=== PATIENT | male | born 1955 | race Caucasian/White ===

== ENCOUNTER 2017-12-27 19:05 | Inpatient (IN) | payer BC ==
--- OUTSIDE RECORDS SUMMARY | 2017-12-27 19:07 | XMS REPORT | Clinical Summary ---
:1955 Author Organization [facility] Address [address] [place] [id number] Care Team Providers Name Role Phone Jazz Brice MD Primary Care Provider Allergies No Known Allergies Current Medications No known medications Active Problems No known active problems Family History Medical History Relation Name Comments Diabetes Father Coronary artery disease Maternal Grandfather age 75+ Breast cancer Mother Relation Name Status Comments Father Maternal Grandfather Mother Social History Tobacco Use Types Packs/Day Years Used Date Never Smoker Alcohol Use Drinks/Week oz/Week Comments Yes Sex Assigned at Date Recorded Not on file Last Filed Vital Signs Not on file Plan of Treatment Health Maintenance Due Date Last Done Comments COLON CANCER SCREENING 11/04/2007 SHINGRIX VACCINE (#1) 11/04/2007 INFLUENZA VACCINE 10/11/2017 ZOSTER VACCINE 2017 Results Not on fileafter 12/26/2016 Insurance Payer Benefit Plan / Group Subscriber ID Type Phone Address BCBS BCBS CHOICE PPO/FEDERAL EMPL PPO xxxxxxxxxxxx PPO Home: Star MURILLO [phone] [address]
[2017-12-27 20:04] LABS: Absolute Lymphocytes (CBC) 1.6 K/uL (0.7-4.9); Absolute Monocytes 0.7 K/uL (0.1-1.3); Absolute Neutrophil 7.8 K/uL (1.8-8.0); Basophils % 0.6 % (0-1.3); Eosinophils % 2.2 % (0-4.4); Hematocrit 41.5 % (39.6-49.0); Lymphocytes % 15.2 % (15.3-44.8); MCH 32.2 pg (27.0-35.0); MCV 93.4 fL (80-100); MPV 7.9 fL (7.6-11.3); Monocytes % 6.5 % (3.3-12.3); Protime INR 0.98; RBC Red Blood Cell Count 4.44 M/uL (4.33-5.43)
[2017-12-27] MEDS ORDERED: FENTANYL CITR 100 MCG/2 ML ONE (20:04)
[2017-12-27] MEDS ORDERED: NA CHLORIDE 0.9% 1,000 ML ONE (20:04)
[2017-12-27] MEDS ORDERED: FAMOTIDINE 20 MG/2 ML VIAL IV ONE (20:04)
[2017-12-27] MEDS ORDERED: ONDANSETRON 4 MG/2 ML VIAL ONE ×2 (20:04→21:41)
[2017-12-27] MEDS ORDERED: METRONIDAZOLE 500mg IVPB 500 MG/100 ML BAG IV ONE (20:05)
[2017-12-27] MEDS ORDERED: CIPROFLOXACIN 400mg IV 400 MG/200 ML BAG IV ONE (20:05)
--- NOTE | 2017-12-27 20:17 | RAD REPORT ---
EXAM DESCRIPTION: RAD - Chest Single View - 12/27/2017 8:11 pm CLINICAL HISTORY: Abdominal pain, abdominal distention COMPARISON: None. TECHNIQUE: AP portable chest image was obtained 2000 hours . FINDINGS: Lungs are clear. Heart and vasculature are normal. No measurable pleural effusion and no p neumothorax. Fullness along the right side of the mediastinum is believed to be normal vasculature. N o comparison is available. No acute bone finding. No acute aortic findings suspected. IMPRESSION: No acute cardiopulmonary process. Fullness along the right-side mediastinum is believed to be vascular summation artifact rather than m ass/adenopathy.
[2017-12-27 20:21] LABS: ALT/SGPT 21 U/L (12-78); AST/SGOT 12 U/L (15-37); Albumin 3.8 g/dL (3.4-5.0); Alkaline Phosphatase 65 U/L (45-117); BUN Blood Urea Nitrogen 24 mg/dL (7-18); Bicarbonate 27 mmol/L (21-32); Bilirubin Direct 0.2 mg/dL (0-0.2); Bilirubin Total 0.5 mg/dL (0.2-1.0); Glucose Level 100 mg/dL (74-106); Magnesium 2.6 mg/dL (1.8-2.4); NT PRO-BNP 29 pg/mL (<125); Potassium 3.8 mmol/L (3.5-5.1); Protein, Total 8.2 g/dL (6.4-8.2); Sodium Level 140 mmol/L (136-145); Troponin (Emerg Dept Use Only) < 0.02 ng/mL (0.0-0.045)
--- NOTE | 2017-12-27 22:08 | RAD REPORT ---
EXAM DESCRIPTION: CT - Abdomen Pelvis W Contrast - 12/27/2017 9:55 pm CLINICAL HISTORY: Abdominal pain COMPARISON: None. TECHNIQUE: Biphasic, helical CT imaging of the abdomen and pelvis was performed following 100 ml non -ionic IV contrast. Oral contrast was given. All CT scans are performed using dose optimization technique as appropriate and may include automated exposure control or mA/KV adjustment according to patient size. FINDINGS: No suspicious findings in the lung bases. The liver, spleen, and pancreas show no suspicious findings. Gallbladder and biliary tree are also wi thout suspicious finding. Symmetric renal function is seen with no hydronephrosis or suspicious renal mass. No pyelonephritis o r acute renal parenchymal process. Partially filled urinary bladder shows no suspicious finding. No gastric dilatation or wall thickening. No acute small bowel finding. An 8 millimeter appendicolith is present in the midportion of the appendix. Appendix is 10 mm in diameter. There is a trace amount of stranding in the periappendiceal fat. A few adjacent mesenteric lymph nodes are present. No mass in the appendix. No acute cecum finding noted. Left-sided colon is mostly decompressed. Rare divertic fiona seen. Prostate gland and seminal vesicles within normal range. No free air, free fluid or other site of inflammatory stranding peer and no mass or bulky lymphaden opathy. Small left fat filled inguinal hernias present. Fat extends into the origin of the right ingu inal canal. Patient has a 15 millimeter fat only umbilical hernia. No adrenal abnormality. No suspicious bony findings. IMPRESSION: Early acute appendicitis findings. There is trace stranding in the periappendiceal fat w ith an 8 millimeter appendicolith present. No abscess, free air or surgically emergent finding. Additional nonacute findings detailed in the body of the report.
--- NOTE | 2017-12-27 22:22 | EDPHYS ---
Physician Documentation [facility] Name: Sammy Bennett Jr Age: 62 yrs Sex: Male : 1955 Arrival Date: 12/27/2017 Time: 19:09 Bed 6 Private MD: JUAN MANUEL Physician Luke Rob HPI: 12/27 19:50 This 62 yrs old Male presents to ER via Ambulatory with complaints of yaritza Abdominal Pain. 19:50 The patient presents with abdominal pain in the lower abdomen, abdominal distention in yaritza the upper abdomen, in the lower abdomen. Onset: The symptoms/episode began/occurred 1 day(s) ago. The symptoms do not radiate. Associated signs and symptoms: Pertinent positives:. Modifying factors: The symptoms are alleviated by nothing, the symptoms are aggravated by nothing. Severity of pain: At its worst the pain was mild moderate in the emergency department the pain is unchanged. The patient has not experienced similar symptoms in the past. Historical: - Allergies: 19:23 No Known Allergies; fc - Home Meds: 19:23 multivitamin oral tab daily [Active]; Magnesium Oxide Oral daily [Active]; Fish Oil fc oral oral daily [Active]; - PMHx: 19:23 intestinal kink; Arthritis; fc - PSHx: 19:23 shoulder surg; fc - Immunization history:: Last tetanus immunization: unknown, Flu vaccine is not up to date. - Social history:: Smoking status: Patient/guardian denies using tobacco, Patient uses alcohol, occasionally. - Ebola Screening: : Patient negative for fever greater than or equal to 101.5 degrees Fahrenheit, and additional compatible Ebola Virus Disease symptoms Patient denies exposure to infectious person Patient denies travel to an Ebola-affected area in the 21 days before illness onset. - Family history:: not pertinent. ROS: 19:50 Constitutional: Negative for fever, chills, and weight loss, Eyes: Negative for injury, yaritza pain, redness, and discharge, ENT: Negative for injury, pain, and discharge, Neck: Negative for injury, pain, and swelling, Cardiovascular: Negative for chest pain, palpitations, and edema, Respiratory: Negative for shortness of breath, cough, wheezing, and pleuritic chest pain, Back: Negative for injury and pain, : Negative for injury, bleeding, discharge, and swelling, MS/Extremity: Negative for injury and deformity, Skin: Negative for injury, rash, and discoloration, Neuro: Negative for headache, weakness, numbness, tingling, and seizure, Psych: Negative for depression, anxiety, suicide ideation, homicidal ideation, and hallucinations, Allergy/Immunology: Negative for hives, rash, and allergies, Endocrine: Negative for neck swelling, polydipsia, polyuria, polyphagia, and marked weight changes, Hematologic/Lymphatic: Negative for swollen nodes, abnormal bleeding, and unusual bruising. 19:50 Abdomen/GI: Positive for abdominal pain, nausea and vomiting, of the right upper quadrant, left upper quadrant, right lower quadrant and left lower quadrant. Exam: 19:50 Constitutional: This is a well developed, well nourished patient who is awake, alert, yaritza and in no acute distress. Head/Face: Normocephalic, atraumatic. Eyes: Pupils equal round and reactive to light, extra-ocular motions intact. Lids and lashes normal. Conjunctiva and sclera are non-icteric and not injected. Cornea within normal limits. Periorbital areas with no swelling, redness, or edema. ENT: Nares patent. No nasal discharge, no septal abnormalities noted. Tympanic membranes are normal and external auditory canals are clear. Oropharynx with no redness, swelling, or masses, exudates, or evidence of obstruction, uvula midline. Mucous membranes moist. Neck: Trachea midline, no thyromegaly or masses palpated, and no cervical lymphadenopathy. Supple, full range of motion without nuchal rigidity, or vertebral point tenderness. No Meningismus. Chest/axilla: Normal chest wall appearance and motion. Nontender with no deformity. No lesions are appreciated. Cardiovascular: Regular rate and rhythm with a normal S1 and S2. No gallops, murmurs, or rubs. Normal PMI, no JVD. No pulse deficits. Respiratory: Lungs have equal breath sounds bilaterally, clear to auscultation and percussion. No rales, rhonchi or wheezes noted. No increased work of breathing, no retractions or nasal flaring. Abdomen/GI: Soft, non-tender, with normal bowel sounds. No distension or tympany. No guarding or rebound. No evidence of tenderness throughout. Back: No spinal tenderness. No costovertebral tenderness. Full range of motion. Male : Normal genitalia with no discharge or lesions. Skin: Warm, dry with normal turgor. Normal color with no rashes, no lesions, and no evidence of cellulitis. MS/ Extremity: Pulses equal, no cyanosis. Neurovascular intact. Full, normal range of motion. Neuro: Awake and alert, GCS 15, oriented to person, place, time, and situation. Cranial nerves II-XII grossly intact. Motor strength 5/5 in all extremities. Sensory grossly intact. Cerebellar exam normal. Normal gait. Psych: Awake, alert, with orientation to person, place and time. Behavior, mood, and affect are within normal limits. Vital Signs: 19:10 BP 143 / 84; Pulse 76; Resp 18; Temp 97.8(O); Pulse Ox 97% on R/A; Weight 104.33 kg fc (R); Height 6 ft. 4 in. (193.04 cm) (R); Pain 8/10; 20:21 BP 129 / 81; Pulse 76; Resp 18; Pulse Ox 98% on R/A; tl2 21:39 BP 106 / 85; Pulse 82; Resp 20; Pulse Ox 100% on R/A; fc 22:48 BP 120 / 66; Pulse 81; Resp 18; Pulse Ox 97% on R/A; tl2 19:10 Body Mass Index 28.00 (104.33 kg, 193.04 cm) MDM: 19:20 Patient medically screened. [facility] 19:52 Data reviewed: vital signs, nurses notes, lab test result(s), EKG, radiologic studies, [facility] CT scan, plain films. 12/27 19:36 Order name: Basic Metabolic Panel; Complete Time: 21:11 2 12/27 19:36 Order name: CBC with Diff; Complete Time: 21:11 2 12/27 19:36 Order name: LFT's; Complete Time: 21:11 2 12/27 19:36 Order name: Magnesium; Complete Time: 21:11 2 12/27 19:36 Order name: NT PRO-BNP; Complete Time: 21:11 2 12/27 19:36 Order name: PT-INR; Complete Time: 21:11 2 12/27 19:36 Order name: Troponin (emerg Dept Use Only); Complete Time: 21:11 2 12/27 19:36 Order name: XRAY Chest (1 view); Complete Time: 21:11 tl2 12/27 19:49 Order name: Lipase; Complete Time: 21:11 yaritza 12/27 19:49 Order name: CT Abd/Pelvis - W/Contrast; Complete Time: 22:18 yaritza 12/27 22:33 Order name: Basic Metabolic Panel EDMS 12/27 22:33 Order name: Basic Metabolic Panel EDMS 12/27 22:33 Order name: CBC with Automated Diff EDMS 12/27 22:34 Order name: CBC with Automated Diff EDMS 12/27 19:36 Order name: EKG; Complete Time: 19:36 tl2 12/27 19:36 Order name: Cardiac monitoring; Complete Time: 19:51 tl2 12/27 19:36 Order name: EKG - Nurse/Tech; Complete Time: 19:49 tl2 12/27 19:36 Order name: IV Saline Lock; Complete Time: 19:36 tl2 12/27 22:33 Order name: NPO EDMS 12/27 19:36 Order name: Labs collected and sent; Complete Time: 19:36 tl2 12/27 19:36 Order name: O2 Per Protocol; Complete Time: 19:36 tl2 12/27 19:36 Order name: O2 Sat Monitoring; Complete Time: 19:37 tl2 Administered Medications: 20:13 Drug: NS 0.9% 1000 ml Route: IV; Rate: 1 bolus; Site: right antecubital; tl2 20:14 Drug: fentaNYL (PF) 25 mcg Route: IVP; Site: right antecubital; tl2 20:14 Drug: Zofran 4 mg Route: IVP; Site: right antecubital; tl2 20:14 Drug: Pepcid 20 mg Route: IVP; Site: right antecubital; tl2 23:16 Follow up: Response: No adverse reaction bb 21:38 Drug: fentaNYL (PF) 25 mcg Route: IVP; Site: right antecubital; fc 21:38 Drug: Flagyl 500 mg Volume: 100 ml; Route: IVPB; Rate: 200 ml/hr; Infused Over: 30 fc mins; Site: right antecubital; 22:25 Follow up: IV Status: Completed infusion; IV Intake: 100ml bb 21:39 Drug: Zofran 4 mg Route: IVP; Site: right antecubital; fc 23:16 Follow up: Response: No adverse reaction bb 22:47 Drug: Cipro 400 mg Volume: 200 ml; Route: IVPB; Infused Over: 60 mins; Site: right tl2 antecubital; 23:17 Follow up: IV Status: Infusion continued upon admission bb 22:47 Drug: Zofran 4 mg Route: IVP; Site: right antecubital; tl2 23:16 Follow up: Response: No adverse reaction bb 22:47 Drug: morphine 4 mg Route: IVP; Site: right antecubital; tl2 23:16 Follow up: Response: No adverse reaction bb Disposition: 12/27/17 22:21 Hospitalization ordered by Mustapha Gutiérrez for Observation. Preliminary diagnosis are Abdominal tenderness, Acute appendicitis. - Bed requested for Telemetry/MedSurg (observation). - Status is Observation. tl2 - Condition is Stable. - Problem is new. - Symptoms have improved. UTI on Admission? No Signatures: Dispatcher [employer] EDMS Malinda German RN RN mw Anderson, Corey, MD MD cha Chretien, Felicia, RN RN Ana Cevallos RN RN 2 Ashely Dior RN Corrections: (The following items were deleted from the chart) 22:25 22:21 Hospitalization Ordered by Mustapha Gutiérrez MD for Observation. Preliminary diagnosis mw is Abdominal tenderness; Acute appendicitis. Bed requested for Telemetry/MedSurg (observation). Status is Observation. Condition is Stable. Problem is new. Symptoms have improved. UTI on Admission? No. [facility] 23:23 22:25 12/27/2017 22:21 Hospitalization Ordered by Mustapha Gutiérrez MD for Observation. tl2 Preliminary diagnosis is Abdominal tenderness; Acute appendicitis. Bed requested for Telemetry/MedSurg (observation). Status is Observation. Condition is Stable. Problem is new. Symptoms have improved. UTI on Admission? No. mw
--- NOTE | 2017-12-27 22:22 | ER ---
Nurse's Notes [facility] Name: Sammy Bennett Jr Age: 62 yrs Sex: Male : 1955 Arrival Date: 12/27/2017 Time: 19:09 Bed 6 Private MD: Diagnosis: Abdominal tenderness;Acute appendicitis Presentation: 12/27 19:10 Presenting complaint: Patient states: that he is having increasing abd pain. Denies any fc nausea, vomiting or diarrhea. Last BM today. Denies any constipation. Has hx of intestinal kink. Transition of care: patient was not received from another setting of care. Onset of symptoms was December 27, 2017. Risk Assessment: Do you want to hurt yourself or someone else?. Initial Sepsis Screen: Does the patient meet any 2 criteria? No. Patient's initial sepsis screen is negative. Does the patient have a suspected source of infection? No. Patient's initial sepsis screen is negative. Care prior to arrival: None. 19:10 Method Of Arrival: Ambulatory fc 19:10 Acuity: MILVIA 3 fc Triage Assessment: 23:14 General: Behavior is cooperative. bb Historical: - Allergies: 19:23 No Known Allergies; fc - Home Meds: 19:23 multivitamin oral tab daily [Active]; Magnesium Oxide Oral daily [Active]; Fish Oil fc oral oral daily [Active]; - PMHx: 19:23 intestinal kink; Arthritis; fc - PSHx: 19:23 shoulder surg; fc - Immunization history:: Last tetanus immunization: unknown, Flu vaccine is not up to date. - Social history:: Smoking status: Patient/guardian denies using tobacco, Patient uses alcohol, occasionally. - Ebola Screening: : Patient negative for fever greater than or equal to 101.5 degrees Fahrenheit, and additional compatible Ebola Virus Disease symptoms Patient denies exposure to infectious person Patient denies travel to an Ebola-affected area in the 21 days before illness onset. - Family history:: not pertinent. Screenin:21 Abuse screen: Denies threats or abuse. Nutritional screening: No deficits noted. fc Tuberculosis screening: No symptoms or risk factors identified. Fall Risk None identified. Assessment: 19:40 General: Appears in no apparent distress. uncomfortable. Pain: Complains of pain in tl2 abdomen and left lower quadrant and right lower quadrant and left upper quadrant and right upper quadrant Pain does not radiate. Quality of pain is described as sharp, Pain began 4 hours ago. Neuro: Level of Consciousness is awake, alert, obeys commands, Oriented to person, place, time, situation. Cardiovascular: Denies chest pain. Respiratory: Airway is patent Respiratory effort is even, unlabored, Respiratory pattern is regular, symmetrical. GI: Bowel sounds present X 4 quads. Abd is soft Abdomen is tender to palpation in right upper quadrant and right lower quadrant Patient currently denies nausea, vomiting. : No signs and/or symptoms were reported regarding the genitourinary system. Derm: Skin is pink, warm \T\ dry. 20:21 Reassessment: Patient appears in no apparent distress at this time. Patient and/or tl2 family updated on plan of care and expected duration. Pain level reassessed. Patient is alert, oriented x 3, equal unlabored respirations, skin warm/dry/pink. 22:30 Reassessment: Patient appears in no apparent distress at this time. Patient and/or tl2 family updated on plan of care and expected duration. Pain level reassessed. Patient is alert, oriented x 3, equal unlabored respirations, skin warm/dry/pink. Pt continuing to c/o pain and nausea, MD notified, new orders see MAR. 23:21 Reassessment: Patient and/or family updated on plan of care and expected duration. Pain tl2 level reassessed. Patient is alert, oriented x 3, equal unlabored respirations, skin warm/dry/pink. IV patent, intact with fluids infusing, pt transported via stretcher to room 209 accompanied by semiconductor manufacturing technician and family. Vital Signs: 19:10 BP 143 / 84; Pulse 76; Resp 18; Temp 97.8(O); Pulse Ox 97% on R/A; Weight 104.33 kg fc (R); Height 6 ft. 4 in. (193.04 cm) (R); Pain 8/10; 20:21 BP 129 / 81; Pulse 76; Resp 18; Pulse Ox 98% on R/A; tl2 21:39 BP 106 / 85; Pulse 82; Resp 20; Pulse Ox 100% on R/A; fc 22:48 BP 120 / 66; Pulse 81; Resp 18; Pulse Ox 97% on R/A; tl2 19:10 Body Mass Index 28.00 (104.33 kg, 193.04 cm) ED Course: 19:09 Patient arrived in ED. ag3 19:10 Arm band placed on Patient placed in an exam room, on a stretcher. fc 19:20 Luke Rob MD is Attending Physician. yaritza 19:21 Triage completed. fc 19:21 Patient has correct armband on for positive identification. Bed in low position. Call fc light in reach. Pulse ox on. NIBP on. 19:21 No provider procedures requiring assistance completed. fc 19:27 Ana Cevallos RN is Primary Nurse. tl2 19:40 Inserted saline lock: 20 gauge in right antecubital area, using aseptic technique. tl2 Blood collected. 20:11 XRAY Chest (1 view) In Process Unspecified. EDMS 21:55 CT Abd/Pelvis - W/Contrast In Process Unspecified. EDMS 22:20 Mustapha Gutiérrez MD is Hospitalizing Provider. yaritza 23:15 Patient admitted, IV remains in place. bb Administered Medications: 20:13 Drug: NS 0.9% 1000 ml Route: IV; Rate: 1 bolus; Site: right antecubital; tl2 20:14 Drug: fentaNYL (PF) 25 mcg Route: IVP; Site: right antecubital; tl2 20:14 Drug: Zofran 4 mg Route: IVP; Site: right antecubital; tl2 20:14 Drug: Pepcid 20 mg Route: IVP; Site: right antecubital; tl2 23:16 Follow up: Response: No adverse reaction bb 21:38 Drug: fentaNYL (PF) 25 mcg Route: IVP; Site: right antecubital; fc 21:38 Drug: Flagyl 500 mg Volume: 100 ml; Route: IVPB; Rate: 200 ml/hr; Infused Over: 30 fc mins; Site: right antecubital; 22:25 Follow up: IV Status: Completed infusion; IV Intake: 100ml bb 21:39 Drug: Zofran 4 mg Route: IVP; Site: right antecubital; fc 23:16 Follow up: Response: No adverse reaction bb 22:47 Drug: Cipro 400 mg Volume: 200 ml; Route: IVPB; Infused Over: 60 mins; Site: right tl2 antecubital; 23:17 Follow up: IV Status: Infusion continued upon admission bb 22:47 Drug: Zofran 4 mg Route: IVP; Site: right antecubital; tl2 23:16 Follow up: Response: No adverse reaction bb 22:47 Drug: morphine 4 mg Route: IVP; Site: right antecubital; tl2 23:16 Follow up: Response: No adverse reaction bb Intake: 22:25 IV: 100ml; Total: 100ml. bb Outcome: 22:21 Decision to Hospitalize by Provider. yaritza 23:15 Admitted to Tele accompanied by tech, via stretcher, room 209, with chart, Report bb called to Steven MCCORD 23:15 Condition: stable 23:15 Instructed on the need for admit. 23:23 Patient left the ED. tl2 Signatures: Dispatcher [employer] Luke Peterson MD MD cha Chretien, Felicia, RN RN Ashely Sewell RN RN Ana Trejo RN RN tl2 Barbie Silva ag3
[2017-12-27] MEDS ORDERED: ACETAMINOPHEN 500 MG TAB PO PRN (22:31)
[2017-12-27] MEDS ORDERED: ONDANSETRON 4 MG/2 ML VIAL IV PRN (22:31)
[2017-12-27] MEDS ORDERED: PIPER/TAZO/NS 3.375gm 3.375 GM/100 ML BAG ONE (22:49)
[2017-12-28] MEDS: D5 0.45 NS 1,000 ML IV SCH ×4 (00:03→23:00)
[2017-12-28] MEDS: PIPER/TAZO/NS 3.375gm 3.375 GM/100 ML BAG IVPB SCH ×4 (01:11→17:41)
[2017-12-28] MEDS: MORPHINE 4 MG/ML SYR IV PRN ×2 (01:20→05:44)
[2017-12-28 05:47] LABS: Potassium 3.8 mmol/L (3.5-5.1)
[2017-12-28 05:49] LABS: Absolute Monocytes 0.8 K/uL (0.1-1.3); Absolute Neutrophil 8.7 K/uL (1.8-8.0); Basophils % 0.3 % (0-1.3); Eosinophils % 0.1 % (0-4.4); Hematocrit 38.1 % (39.6-49.0); Lymphocytes % 9.2 % (15.3-44.8); MCV 94.2 fL (80-100); MPV 8.2 fL (7.6-11.3); Monocytes % 7.3 % (3.3-12.3); RBC Red Blood Cell Count 4.04 M/uL (4.33-5.43)
[2017-12-28] MEDS ORDERED: PIPER/TAZO/NS 3.375gm 3.375 GM/100 ML BAG IVPB SCH ×2 (06:00)
[2017-12-28] MEDS ORDERED: PIPER/TAZO/NS 3.375gm 3.375 GM/100 ML BAG ONE (06:35)
[2017-12-28] MEDS ORDERED: Ringers Lactate 1,000 ML IV ONE ×2 (08:14→10:55)
[2017-12-28] MEDS ORDERED: FENTANYL CITR 100 MCG/2 ML ONE ×4 (09:06→10:48)
[2017-12-28] MEDS ORDERED: PROPOFOL 200 MG/20 ML VIAL IV ONE ×2 (09:06→10:16)
[2017-12-28] MEDS ORDERED: MIDAZOLAM HCL 2 MG/2 ML INJ ONE ×2 (09:07→10:16)
[2017-12-28] MEDS ORDERED: LIDOCAINE 2% MPF 5 ML VIAL ONE (09:07)
[2017-12-28] MEDS ORDERED: ONDANSETRON 4 MG/2 ML VIAL ONE (09:07)
[2017-12-28] MEDS ORDERED: ROCURONIUM 50 MG/5 ML VIAL IV ONE ×3 (09:08→10:54)
[2017-12-28] MEDS: FENTANYL CITR 100 MCG/2 ML ONE ×2 (09:24→09:30)
[2017-12-28] MEDS ORDERED: LIDOCAINE 1% MPF 5 ML VIAL ONE (10:16)
[2017-12-28] MEDS ORDERED: BUPIVACAINE 0.5% PF 10 ML VIAL ONE (10:27)
[2017-12-28] MEDS ORDERED: ONDANSETRON HCL 40 MG/20 ML VIAL ONE (10:55)
[2017-12-28] MEDS ORDERED: KETOROLAC 30 MG/ML INJ ONE (10:55)
[2017-12-28] MEDS ORDERED: GLYCOPYRROLATE 0.2 MG/ML SYR ONE (10:55)
[2017-12-28] MEDS ORDERED: NEOSTIGMINE 1 MG/ML -5 ML SYRINGE ONE (10:55)
[2017-12-28] MEDS ORDERED: INFLUENZA VACCINE (for 3y+) 0.5 ML DOSE IMVAC ONE (11:00)
[2017-12-28] MEDS: MEPERIDINE HCL 50 MG/ML AMP ONE ×2 (11:39→11:45)
--- NOTE | 2017-12-28 11:40 | P.OP ---
[employer] Teacher: Polly OTRIZ Preoperative diagnosis: Acute appy Postoperative diagnosis: same Primary procedure: Lap Appy Anesthesia: gen Estimated blood loss: min Specimen: appy Findings: as above Complications: None Transferred to: Recovery Room Condition: Good
--- NOTE | 2017-12-28 12:27 | HP ---
Date of Consultation: 12/28/2017 Reason: Abdominal pain. History Of Present Illness: The patient is a 62-year-old gentleman, who comes in with diffuse abdomi nal pain associated with nausea and vomiting, and right lower quadrant localization. No previous his tory of this. No sore throat, runny nose, cough, headaches, or dizziness. No chest pain. Occasiona l chills. No fevers. No diarrhea or constipation. No blood in his stool. No dysuria or hematuria. Review of Systems: Otherwise unremarkable. Past Medical History: Arthritis. Past Surgical History: Shoulder surgery. Allergies: NO ALLERGIES. Social History: He does not smoke. Drinks occasionally. Family History: Noncontributory. Physical Examination: Vital Signs: Stable. Afebrile. General: Awake, alert, and oriented x3. Head and Neck: Cranial nerves 2 through 12 are grossly within normal limits. No neck masses. No JV D. Throat clear. Neck is supple. Chest: Clear. Heart: S1, S2. Abdomen: Soft, nondistended. Positive bowel sounds. Positive right lower quadrant tenderness with rebound. No rigidity or guarding. Extremity: Adequately perfused. Nontender. Neuro: Nonfocal. Laboratory Data: White count is normal with a left shift. CT of the abdomen and pelvis is consisten t with acute appendicitis, early, with an appendicolith. Assessment: Acute appendicitis. Plan: Admit n.p.o., IV fluid, IV antibiotic. To the OR for laparoscopic appendectomy, possible open . The patient understands the risks, benefits, and alternatives and agrees to procedure. BHARAT/VARSHA Voice ID: [id number] Report ID: [id number]
[2017-12-28] MEDS ORDERED: SUCCINYLCHOLINE 20 MG/ML (10 ML) IV ONE (12:44)
[2017-12-28] MEDS: HYDROCODONE/APAP 7.5/325 MG TAB PO PRN ×2 (15:36→20:16)
[2017-12-28] MEDS: ACETAMINOPHEN 325 MG TABLET PO PRN (16:38)
[2017-12-29] MEDS: PIPER/TAZO/NS 3.375gm 3.375 GM/100 ML BAG IVPB SCH ×3 (00:57→16:19)
--- NOTE | 2017-12-29 01:34 | OP ---
Date of Procedure: 12/28/2017 Surgeon: Mustapha Gutiérrez MD Data Assistant: DIANA Dela Cruz. Preoperative Diagnoses: Acute appendicitis, umbilical hernia. Postoperative Diagnoses: Acute appendicitis, umbilical hernia. Procedure: Repair of umbilical hernia and laparoscopic appendectomy. Estimated Blood Loss: Minimal. Specimen: Appendix and hernia sac. Finding: As above. Anesthesia: General. Complications: None. Disposition: The patient tolerated the procedure in stable condition and taken to Recovery in good g eneral condition. Procedure In Detail: The patient was brought to the OR and placed in the supine position. General a nesthesia was begun. The patient was prepped and draped in usual sterile fashion. Marcaine 0.5% was infiltrated locally around the hernia at the umbilicus and then a 3 cm incision was made over the he rnia and subcutaneous tissue divided. Hernia sac and contents identified, excised, and sent to Patho logy as specimen. Approximately 1.5 cm defect remained with good fascial edges. A #1 Vicryl stay mackay ture was placed and then a 12 mm trocar was placed in the peritoneal cavity under direct vision. Pne umoperitoneum was established. Two 5 mm trocars were placed, one in the suprapubic region, one in th e left lower quadrant. Laparoscopy revealed acute suppurative appendicitis with chronic inflammation and was attached to the lateral pelvic wall as well as the cecum and blunt dissection was used to mo bilize it and then the base of the appendix and mesoappendix were clearly identified. Endo-MARV stapl ing device was used to divide both structures. Then, the appendix was retrieved through the umbilicu s via an EndoCatch bag. Right lower quadrant was irrigated. Effluent was clear. No evidence of ble eding or bowel injury appreciated. No other evidence of disease identified. Subsequently, all troca rs were removed under direct vision. Stay sutures were used to close the hernia defect. Subcutaneou s wounds were irrigated. Bleeding controlled with cautery. A 3-0 chromic used to approximate the mackay bcutaneous tissue and close skin. Sterile dressing was applied. The patient was awakened and taken to Recovery in good general condition. /MODL Voice ID: [id number] Report ID: [id number]
[2017-12-29] MEDS: HYDROCODONE/APAP 7.5/325 MG TAB PO PRN ×3 (04:34→15:12)
--- NOTE | 2017-12-29 05:49 | DS ---
Date of Discharge: 12/28/2017 Admitting Diagnoses: Acute appendicitis and umbilical hernia. Discharge Diagnoses: Acute appendicitis and umbilical hernia. Procedure Performed: Laparoscopic appendectomy and repair of umbilical hernia. Hospital Course: The patient is a 62-year-old gentleman who underwent the aforementioned procedure. Postoperatively, he is tolerating diet ambulating, pain controlled on p.o. pain medication, afebrile ; therefore, the patient will be discharged to home. Disposition: Home. Condition: Stable. Discharge Instructions: Resume home medications and diet. Activity as tolerated. No heavy lifting. Remove outer dressing in 2 days. Shower. Keep wound clean and dry. Follow up in my office in [address] [place], call for appointment. Tylenol No. 3, one tablet, p.o. q.4 h. p.r.n. for pain; Cipro 500 mg p.o. q.12 h.; Flagyl 500 mg p.o. q.6 h. /MODL Voice ID: [id number] Report ID: [id number]
[2017-12-29] MEDS: ACETAMINOPHEN 325 MG TABLET PO PRN (05:56)
--- NOTE | 2017-12-29 06:55 | EKG ---
Test Date: 2017-12-27 Test Time: 19:41:08 Family Day Care Provider: DAVID MEASUREMENT RESULTS: Intervals: Rate: 75 [place]: 174 QRSD: 88 QT: 400 QTc: 446 Am[place]: P: 58 [place]: 174 QRS: 25 T: 44 INTERPRETIVE STATEMENTS: Normal sinus rhythm Normal ECG No previous ECG available for comparison Electronically Signed On 12-29-17 06:49:43 CDT by Trev Pryor
[2017-12-29] MEDS ORDERED: INFLUENZA VACCINE (for 3y+) 0.5 ML DOSE IMVAC ONE (07:00)
[2017-12-29] MEDS: D5 0.45 NS 1,000 ML IV SCH ×3 (07:00→23:37)
[2017-12-29 09:16] LABS: Absolute Lymphocytes (CBC) 0.9 K/uL (0.7-4.9); Absolute Monocytes 0.3 K/uL (0.1-1.3); Absolute Neutrophil 10.2 K/uL (1.8-8.0); Basophils % 0.3 % (0-1.3); Eosinophils % 0.8 % (0-4.4); Hematocrit 36.1 % (39.6-49.0); MCH 31.8 pg (27.0-35.0); MPV 7.9 fL (7.6-11.3); RBC Red Blood Cell Count 3.88 M/uL (4.33-5.43)
[2017-12-29 09:43] LABS: Blood Morphology Comment NOT SEEN (NOT SEEN); Platelet Estimate ADEQ; Urine White Blood Cell Casts OK
--- NOTE | 2017-12-29 15:52 | PN ---
Date of Progress Note: 12/29/2017 Subjective: The patient was discharged yesterday, but right before discharge he spiked a temperature , I kept him in for IV antibiotics. So, this would be in addition to my discharge summary, which I w ill do an addendum when patient is discharged for real this time. Today, he is feeling not as good a s yesterday after surgery. He feels bloated. No nausea or vomiting. Tolerating his liquids and the pain is much better than was before surgery. Objective: Vital Signs: Temperature currently is 99.1, otherwise his vital signs are stable. His w harjeet count is slightly elevated at 11.6, slight left shift of 87.9. Abdomen: Soft, slightly distended with slightly hypoactive bowel sounds. No peritonitis. Dressing is clean, dry, intact. Assessment: Status post laparoscopic appendectomy, likely mild ileus following removal of the infect ed appendix. Recommendation: Would be to continue patient on IV antibiotics. Encourage ambulation and incentive spirometry. When his ileus is better clinically, than we can let him go home on oral antibiotics. /MODL Voice ID: [id number] Report ID: [id number]
[2017-12-29] MEDS: METRONIDAZOLE 500mg IVPB 500 MG/100 ML BAG IV SCH ×2 (17:53→23:36)
[2017-12-29] MEDS: ONDANSETRON 4 MG/2 ML VIAL IV PRN ×2 (18:27→23:35)
[2017-12-29] MEDS: PROMETHAZINE 25 MG/ML VIAL IV PRN (20:22)
[2017-12-30] MEDS: PIPER/TAZO/NS 3.375gm 3.375 GM/100 ML BAG IVPB SCH ×3 (01:14→17:13)
[2017-12-30] MEDS: PROMETHAZINE 25 MG/ML VIAL IV PRN (02:00)
[2017-12-30 06:25] LABS: Absolute Lymphocytes (CBC) 0.4 K/uL (0.7-4.9); Absolute Monocytes 0.4 K/uL (0.1-1.3); Absolute Neutrophil 11.4 K/uL (1.8-8.0); Basophils % 0.2 % (0-1.3); Eosinophils % 0.1 % (0-4.4); MCH 32.2 pg (27.0-35.0); MCV 92.8 fL (80-100); MPV 7.8 fL (7.6-11.3); Monocytes % 3.6 % (3.3-12.3); RBC Red Blood Cell Count 3.98 M/uL (4.33-5.43)
[2017-12-30 06:40] LABS: Magnesium 2.4 mg/dL (1.8-2.4); Phosphorus 1.7 mg/dL (2.5-4.9); Potassium 3.8 mmol/L (3.5-5.1)
[2017-12-30] MEDS: METRONIDAZOLE 500mg IVPB 500 MG/100 ML BAG IV SCH ×3 (06:44→17:13)
[2017-12-30] MEDS: D5 0.45 NS 1,000 ML IV SCH ×4 (07:00→22:21)
[2017-12-30] MEDS ORDERED: LIDOCAINE JELLY 2%- 5 ML TUBE TOP ONE (07:46)
--- NOTE | 2017-12-30 08:28 | RAD REPORT ---
EXAM DESCRIPTION: RAD - Abdomen 1 View (KUB) - 12/30/2017 6:38 am CLINICAL HISTORY: Abdomen pain. FINDINGS: Most of small bowel is moderately dilated. Contrast is present within decompressed colon. These findings most likely represent an adynamic ileus. Given the recent surgery and obstruction is c onsidered less likely. Followup abdominal plain film series is rectum
[2017-12-30] MEDS: PHENOL 1.4% ORAL SPRAY 180ML MM PRN ×2 (08:38→23:17)
[2017-12-30] MEDS: ONDANSETRON 4 MG/2 ML VIAL IV PRN ×3 (08:40→19:22)
[2017-12-30] MEDS: HYDROMORPHONE HCL 1 MG/ML INJ IV PRN ×2 (08:40→13:53)
--- NOTE | 2017-12-30 09:54 | RAD REPORT ---
EXAM DESCRIPTION: RAD - Chest Single View - 12/30/2017 9:47 am CLINICAL HISTORY: Device placement nasogastric tube placement IMPRESSION: The tip of a nasogastric tube lies within the junction of the gastric fundus and body
--- NOTE | 2017-12-30 11:37 | PN ---
Date of Progress Note: 12/30/2017 Subjective: The patient is complaining that he is not feeling well. He still feels distended. He h as had nausea all night. Has had bowel movement this morning with some gas as well. X-ray shows robi namic ileus in the small bowel. Colon is not involved. Abdomen is distended. Hypoactive bowel soun ds. Diffuse tenderness but no peritonitis. The upper abdomen appears to be less distended today edward n yesterday. His white count is slightly elevated with a left shift. The electrolytes were checked and they have been corrected as per protocol. Assessment: Status post laparoscopic appendectomy with ileus. Recommendations: We will go and place an NG tube and n.p.o. IV fluid, IV antibiotics, encouraged to ambulate. Incentive spirometry. We will check another x-ray tomorrow. The patient should improve w ith bowel rest. /MODL Voice ID: [id number] Report ID: [id number]
[2017-12-30] MEDS ORDERED: DIPHENHYDRAMINE 50 MG/ML VIAL IV PRN (18:26)
[2017-12-30] MEDS ORDERED: POTASSIUM PHOS 10 MM in NA CHLORIDE 0.9% 250 ML IV ONE (18:43)
--- NOTE | 2017-12-30 18:48 | P.HP ---
Certification for Inpatient Patient admitted to: Inpatient With expected LOS: >2 Midnights Practitioner: I am a practitioner with admitting privileges, knowledge of patient current condition, hospital course, and medical plan of care. Services: Services provided to patient in accordance with Admission requirements found in Title 42 Section 412.3 of the Code of Federal Regulations Patient History Date of Service: 12/30/17 Reason for admission: APPENDICITIS History of Present Illness: MR. WATKINS HAS BEEN IN THE HOSPITAL FOR APPENDICITIS. DR VAZ WAS TO TAKE CARE OF DISCHARGE BUT HE DEVELOPED ILEUS. FAMILY SOUGHT ME AT MY VISIT I AM HIS PCP. HE HAS DIZZINESS AND NAUSEA IN ADDITION TO ILEUS. Allergies No Known Allergies Allergy (Verified 12/27/17 23:42) Home Medications: NK [No Home Meds] 12/27/17 - Past Medical/Surgical History Has patient received pneumonia vaccine in the past: No Diabetic: No -: Shoulder Sx - Family History Father -: Diabetes - Social History Smoking Status: Never smoker Alcohol use: Yes CD- Drugs: No Caffeine use: Yes Place of Residence: Home Review of Systems 10-point ROS is otherwise unremarkable General: Weakness Gastrointestinal: Nausea, Distention Physical Examination - Vital Signs Temperature: 98.7 F Blood Pressure: 121/72 Pulse: 79 Respirations: 18 Pulse Ox (%): 97 - Physical Exam General: Alert, Oriented x3, Mild distress HEENT: Atraumatic, PERRLA, Mucous membr. moist/pink, EOMI, Sclerae nonicteric Neck: Supple, 2+ carotid pulse no bruit, No LAD, Without JVD or thyroid abnormality Respiratory: Clear to auscultation bilaterally, Normal air movement Cardiovascular: Regular rate/rhythm, Normal S1 S2 Gastrointestinal: Hypoactive Musculoskeletal: No tenderness Integumentary: No rashes Neurological: Normal gait, Normal speech, Other Lymphatics: No axilla or inguinal lymphadenopathy - Studies Laboratory Data (last 24 hrs) 12/30/17 06:04: Sodium 133 L, Potassium 3.8, BUN 13, Creatinine 1.10, Glucose 152 H, Phosphorus 1.7 L, Magnesium 2.4 12/30/17 06:04: WBC 12.3 H, Hgb 12.8 L, Hct 37.0 L, Plt Count 249 Assessment and Plan - Problems (Diagnosis) (1) Postoperative ileus Current Visit: Yes Status: Acute Plan: DR. VAZ ON CASE NGT AND LIS. (2) Vertigo Current Visit: Yes Status: Acute Plan: IV BENADRYL 25 MG. MAY HELP THIS SS CURRENTLY WITH NGT HE CAN'T TAKE ANTIVERT. SOMETIMES MEDS WILL GIVE THIS SE. (3) Acute appendicitis Onset Date: 12/28/17 Current Visit: Yes Status: Acute Plan: SP SURGERY. STABLE. - Advance Directives Does patient have a Living Will: No Does patient have a Durable POA for Healthcare: No
[2017-12-30] MEDS: DIPHENHYDRAMINE 12.5MG/5ML LIQ FT PRN (19:24)
[2017-12-31] MEDS: DIPHENHYDRAMINE 12.5MG/5ML LIQ FT PRN (00:57)
[2017-12-31] MEDS: METRONIDAZOLE 500mg IVPB 500 MG/100 ML BAG IV SCH ×5 (00:59→23:43)
[2017-12-31] MEDS: PIPER/TAZO/NS 3.375gm 3.375 GM/100 ML BAG IVPB SCH ×3 (01:02→17:10)
[2017-12-31] MEDS: ONDANSETRON 4 MG/2 ML VIAL IV PRN ×3 (01:02→22:46)
[2017-12-31] MEDS: PHENOL 1.4% ORAL SPRAY 180ML MM PRN ×4 (04:04→22:42)
[2017-12-31] MEDS: D5 0.45 NS 1,000 ML IV SCH ×3 (05:10→17:45)
[2017-12-31 07:12] LABS: Absolute Lymphocytes (CBC) 0.7 K/uL (0.7-4.9); Absolute Monocytes 0.7 K/uL (0.1-1.3); Absolute Neutrophil 9.1 K/uL (1.8-8.0); Basophils % 0.2 % (0-1.3); Eosinophils % 1.2 % (0-4.4); Hematocrit 36.8 % (39.6-49.0); Lymphocytes % 6.5 % (15.3-44.8); MCH 32.1 pg (27.0-35.0); MCV 92.7 fL (80-100); MPV 7.6 fL (7.6-11.3); Monocytes % 6.5 % (3.3-12.3); RBC Red Blood Cell Count 3.97 M/uL (4.33-5.43)
[2017-12-31 07:33] LABS: Magnesium 2.4 mg/dL (1.8-2.4); Phosphorus 1.6 mg/dL (2.5-4.9); Potassium 3.3 mmol/L (3.5-5.1)
[2017-12-31] MEDS ORDERED: POTASSIUM PHOS IN 0.9 % NACL 15 MMOL/250 ML BAG IV ONE (08:04)
[2017-12-31] MEDS: DIPHENHYDRAMINE 12.5MG/5ML LIQ ONE ×2 (08:57→09:25)
[2017-12-31] MEDS: PROMETHAZINE 25 MG/ML VIAL IV PRN ×3 (09:44→19:02)
[2017-12-31] MEDS ORDERED: KCL 20 MEQ/100 mL IVPB 20 MEQ/100 ML BAG IV SCH (10:00)
--- NOTE | 2017-12-31 10:01 | RAD REPORT ---
EXAM DESCRIPTION: RAD - Abdomen W Erect - 12/31/2017 9:13 am CLINICAL HISTORY: Abdominal pain, ileus versus obstruction COMPARISON: KUB December 30, CT imaging December 27 TECHNIQUE: Supine and upright views of the abdomen were obtained. FINDINGS: NG tube has been placed since prior imaging. Stomach has decompressed. Numerous dilated sm all bowel loops are still present. There has been no significant improvement in the small bowel patte rn. No free air or pneumatosis. No colon dilatation. The oral contrast seen in the colon on the Octob er 20 study has cleared indicating bowel activity. No extravasation of contrast. IMPRESSION: Multiple dilated small bowel loops are present not substantially different from the prio r study. Oral contrast seen in the colon on the December 30 study has cleared. NG tube is in place. Stomach has decompressed from prior imaging.
[2017-12-31] MEDS: HYDROMORPHONE HCL 1 MG/ML INJ IV PRN ×3 (12:53→22:46)
--- NOTE | 2017-12-31 14:51 | PN ---
Date of Progress Note: 12/31/2017 Subjective: The patient reports several bouts of diarrhea last night. C diff cultures are pending. He is passing gas. No nausea or vomiting. He did have about greater than 200 out of his NG tube. His abdominal x-ray is pending at this time. Laboratory Data: Shows a white count 10.6, and left shift is improving. Chemistry reviewed and elec trolyte protocol is in progress. Objective: Abdomen: Less distended. There is more bowel sound today. There is no peritonitis. Th ere is minimal incisional tenderness. Assessment: Status post laparoscopic appendectomy with prolonged ileus. Recommendations: We will check the x-ray, but at this time, I think another day with NG tube, decomp ression, and bowel rest would do the patient good. Continue IV antibiotics, IV fluids. Appreciate Margaret Clements's input. We will follow his x-ray and correct his electrolytes as needed. BHARAT/VARSHA Voice ID: [id number] Report ID: [id number]
[2017-12-31] MEDS ORDERED: NA CHLORIDE 0.9% 250 ML ONE (15:50)
[2017-12-31] MEDS ORDERED: ZOLPIDEM TARTRATE 10 MG TABLET PO PRN (17:52)
--- NOTE | 2017-12-31 21:04 | P.PN ---
Subjective Date of Service: 12/31/17 Chief Complaint: ILEUS Subjective: Improving (HE HASD BM TODAY A FEW TIMES.) Review of Systems 10-point ROS is otherwise unremarkable General: Weakness, Malaise Gastrointestinal: Diarrhea, Distention Physical Examination - Vital Signs Temperature: 98.3 F Blood Pressure: 147/76 Pulse: 67 Respirations: 18 Pulse Ox (%): 91 - Physical Exam General: Alert, Mild distress (NG SUCTION) HEENT: Atraumatic, PERRLA, EOMI Neck: Supple, JVD not distended Respiratory: Clear to auscultation bilaterally, Normal air movement Cardiovascular: Regular rate/rhythm, Normal S1 S2 Gastrointestinal: Normal bowel sounds, No tenderness Musculoskeletal: No tenderness Integumentary: No rashes Neurological: Normal speech, Normal tone, Normal affect Lymphatics: No axilla or inguinal lymphadenopathy - Studies Medications List Reviewed: Yes Assessment And Plan - Current Problems (Diagnosis) (1) Postoperative ileus Current Visit: Yes Status: Acute Plan: DR. VAZ ON CASE NGT AND LIS. IMPROVED HOPFEULLY DIET SOON. (2) Vertigo Current Visit: Yes Status: Acute Plan: IV BENADRYL 25 MG. MAY HELP THIS SS CURRENTLY WITH NGT HE CAN'T TAKE ANTIVERT. SOMETIMES MEDS WILL GIVE THIS SE. (3) Acute appendicitis Onset Date: 12/28/17 Current Visit: Yes Status: Acute Plan: SP SURGERY. STABLE.
[2018-01-01] MEDS: PIPER/TAZO/NS 3.375gm 3.375 GM/100 ML BAG IVPB SCH ×3 (00:37→17:04)
[2018-01-01] MEDS: PROMETHAZINE 25 MG/ML VIAL IV PRN ×4 (03:06→21:51)
[2018-01-01] MEDS: HYDROMORPHONE HCL 1 MG/ML INJ IV PRN ×4 (03:07→21:51)
[2018-01-01] MEDS: PHENOL 1.4% ORAL SPRAY 180ML MM PRN ×4 (03:17→21:50)
[2018-01-01 05:23] LABS: Absolute Lymphocytes (CBC) 0.5 K/uL (0.7-4.9); Absolute Monocytes 0.9 K/uL (0.1-1.3); Absolute Neutrophil 8.5 K/uL (1.8-8.0); Basophils % 0.3 % (0-1.3); Eosinophils % 1.8 % (0-4.4); Hematocrit 36.2 % (39.6-49.0); Lymphocytes % 5.2 % (15.3-44.8); MCH 32.8 pg (27.0-35.0); MCV 92.3 fL (80-100); MPV 7.8 fL (7.6-11.3); Monocytes % 8.6 % (3.3-12.3); RBC Red Blood Cell Count 3.92 M/uL (4.33-5.43)
[2018-01-01 05:42] LABS: Magnesium 2.3 mg/dL (1.8-2.4); Phosphorus 1.8 mg/dL (2.5-4.9); Potassium 3.2 mmol/L (3.5-5.1)
[2018-01-01] MEDS: METRONIDAZOLE 500mg IVPB 500 MG/100 ML BAG IV SCH ×3 (05:51→17:01)
[2018-01-01] MEDS: D5 0.45 NS 1,000 ML IV SCH ×3 (05:52→21:49)
[2018-01-01] MEDS ORDERED: KCL 20 MEQ/100 mL IVPB 20 MEQ/100 ML BAG IV SCH (07:00)
--- NOTE | 2018-01-01 07:15 | RAD REPORT ---
EXAM DESCRIPTION: RAD - Abdomen W Erect - 01/01/2018 7:01 am CLINICAL HISTORY: Abdominal pain, small bowel dilatation, ileus versus obstruction COMPARISON: Abdomen exam December 31 TECHNIQUE: Supine and upright views of the abdomen were obtained. FINDINGS: NG tube remains in place. Small amount of air is present in the stomach. Multiple dilated small bowel loops are present with air-fluid levels. No measurable improvement from prior day imaging . Colon remains mostly decompressed. No free air or pneumatosis have developed. Phleboliths are seen in the pelvic floor. No suspicious calcifications. IMPRESSION: Multiple dilated small bowel loops showing no significant change from prior day imaging. No free air or pneumatosis.
[2018-01-01] MEDS: PANTOPRAZOLE 40 MG INJ IVP SCH ×2 (09:35→21:22)
[2018-01-01] MEDS ORDERED: POTASSIUM PHOS IN 0.9 % NACL 15 MMOL/250 ML BAG IV ONE (10:00)
--- NOTE | 2018-01-01 12:35 | P.PN ---
Subjective Date of Service: 01/01/18 Chief Complaint: ILEUS Subjective: Improving HE IS UNCOMFORTABLE WITH NGT. HAS SOME BLOOD IN THE NGT SUCTION. HE HAS HAD BM AND PASSES GAS NOW. Review of Systems 10-point ROS is otherwise unremarkable General: Weakness Gastrointestinal: As per HPI Physical Examination - Vital Signs Temperature: 98.1 F Blood Pressure: 126/88 Pulse: 83 Respirations: 16 Pulse Ox (%): 92 - Physical Exam General: Alert, Mild distress HEENT: Atraumatic, PERRLA, EOMI Neck: Supple, JVD not distended Respiratory: Clear to auscultation bilaterally, Normal air movement Cardiovascular: Regular rate/rhythm, Normal S1 S2 Gastrointestinal: Hypoactive Musculoskeletal: No tenderness Integumentary: No rashes Neurological: Normal speech, Normal tone, Normal affect Lymphatics: No axilla or inguinal lymphadenopathy - Studies Medications List Reviewed: Yes Assessment And Plan - Current Problems (Diagnosis) (1) Postoperative ileus Current Visit: Yes Status: Acute Plan: DR. VAZ ON CASE NGT AND LIS. IMPROVED HOPFEULLY DIET SOON. PASSING GAS AND HAVING MOVEMENT FROM RECTUM IS A GOOD SIGN. I EXPLAINED TO AND HIM. HE WILL FEEL BETTER SOON, I BELIEVE WHEN THE NGT COMES OUT DR VAZ CALLED ME AND HE WILL TRY TO DO THAT TODAY. (2) Vertigo Current Visit: Yes Status: Acute Plan: IV BENADRYL 25 MG. MAY HELP THIS SS CURRENTLY WITH NGT HE CAN'T TAKE ANTIVERT. SOMETIMES MEDS WILL GIVE THIS SE. (3) Acute appendicitis Onset Date: 12/28/17 Current Visit: Yes Status: Acute Plan: SP SURGERY. STABLE. (4) Hypokalemia Current Visit: Yes Status: Acute Plan: REPLACE, K AND PHOS THESE ARE LOW FROM NGT WITH LIS. (5) Hypophosphatemia Current Visit: Yes Status: Acute
--- NOTE | 2018-01-01 16:25 | PN ---
Date of Progress Note: 01/01/2018 Subjective: The patient still having bowel movements and passing gas; however he still feels distend ed. About 600 cc came out overnight in the NG tube. No nausea or vomiting. His white count is norm al. Left shift is almost normalized. Electrolytes are being checked and corrected as needed. Objective: Vital Signs: Vitals are stable. He is afebrile. Abdomen: Soft. Hypoactive bowel sounds. Slightly distended. No tenderness. No peritonitis. Assessment: Status post laparoscopic appendectomy with prolonged ileus. Recommendations: Discussed the case in detail with the radiologist as well as with Dr. Bowles. We wi ll go ahead and do a small bowel series today and should he not improve within the next 24 hours, con sideration will be given to parenteral nutrition via PICC line within the next 24 hours. Continue IV fluids and antibiotics as ordered. /MODL Voice ID: [id number] Report ID: [id number]
--- NOTE | 2018-01-01 21:18 | RAD REPORT ---
EXAM DESCRIPTION: RAD - Small Bowel Series - 01/01/2018 8:44 pm CLINICAL HISTORY: Abdominal pain/ COMPARISON: None. FINDINGS: The inverform machine operator film demonstrates moderate to marked dilatation of multiple loops of jejunum and ileum. There is a marked delay of transit of contrast within the small bowel. Proximal and mid jejunum is normal caliber. Distal jejunum and ileum are moderately to markedly dilat ed. By approximately 7 hours contrast has still not yet entered the colon IMPRESSION: Moderate to marked small bowel dilatation. This probably represents an adynamic ileus. H owever, a complete mechanical small bowel obstruction can also have this appearance. An x-ray will be obtained at 7:30 a.m. 01/02/2018 to determine if there is a transition point or comp lete obstruction present
[2018-01-01] MEDS: SODIUM CHLORIDE 0.9% 10ML INJ IV PRN (21:24)
[2018-01-01] MEDS ORDERED: LORazepam 2 MG/ML VIAL IV ONE (22:00)
[2018-01-02] MEDS: METRONIDAZOLE 500mg IVPB 500 MG/100 ML BAG IV SCH ×5 (00:18→23:15)
[2018-01-02] MEDS: PIPER/TAZO/NS 3.375gm 3.375 GM/100 ML BAG IVPB SCH ×3 (01:32→16:29)
[2018-01-02] MEDS: KCL 20 MEQ/100 mL IVPB 20 MEQ/100 ML BAG IV SCH ×2 (01:38→04:17)
[2018-01-02] MEDS: PROMETHAZINE 25 MG/ML VIAL IV PRN ×3 (02:00→16:32)
[2018-01-02] MEDS: PHENOL 1.4% ORAL SPRAY 180ML MM PRN (04:44)
[2018-01-02] MEDS: D5 0.45 NS 1,000 ML IV SCH ×3 (05:33→23:16)
[2018-01-02 05:36] LABS: Absolute Lymphocytes (CBC) 0.9 K/uL (0.7-4.9); Absolute Monocytes 0.8 K/uL (0.1-1.3); Absolute Neutrophil 5.9 K/uL (1.8-8.0); Basophils % 0.4 % (0-1.3); Eosinophils % 3.5 % (0-4.4); Hematocrit 30.5 % (39.6-49.0); Lymphocytes % 11.1 % (15.3-44.8); MCV 94.2 fL (80-100); MPV 7.6 fL (7.6-11.3); RBC Red Blood Cell Count 3.24 M/uL (4.33-5.43)
[2018-01-02] MEDS: ONDANSETRON 4 MG/2 ML VIAL IV PRN ×2 (07:40→20:50)
[2018-01-02 07:52] LABS: Phosphorus 1.9 mg/dL (2.5-4.9); Potassium 3.5 mmol/L (3.5-5.1)
[2018-01-02 07:53] LABS: Magnesium 2.4 mg/dL (1.8-2.4)
[2018-01-02] MEDS: PANTOPRAZOLE 40 MG INJ IVP SCH ×2 (08:29→20:48)
[2018-01-02] MEDS ORDERED: HYDROMORPHONE HCL 0.5 MG/0.5 ML INJ IV PRN (10:00)
--- NOTE | 2018-01-02 10:41 | RAD REPORT ---
EXAM DESCRIPTION: RAD - Abdomen Single View - 01/02/2018 10:10 am CLINICAL HISTORY: Abdominal pain, small bowel obstruction versus adynamic ileus, follow-up to small bowel series COMPARISON: Small bowel series January 01 FINDINGS: Contrast from the small bowel examination is now 0 present throughout the colon reaching t he rectum. Colon is not dilated. Volume in the colon is relatively small. There remains a large amoun t of contrast within the dilated small bowel loops. No extravasation of contrast. No free air or pneu matosis. No suspicious calcifications. No significant bony findings IMPRESSION: Contrast from the small bowel series has reached the colon indicating no complete obstru ction and some degree of peristaltic activity. Most of the contrast remains within dilated small bowel loops.
--- NOTE | 2018-01-02 13:01 | P.PN ---
Subjective Date of Service: 01/02/18 Chief Complaint: ILEUS Subjective: No new changes HE IS UNCOMFORTABLE WITH NGT. HAS SOME BLOOD IN THE NGT SUCTION. HE HAS HAD BM AND PASSES GAS NOW. HE FELT GREAT LAST NIGHT BUT THIS AM HE IS NOT FEELING GOOD. HE HAS HICCOUGHS, NGT IS NOT COMFORTABLE , HE STILL HAS LIQUID BOWEL MOVEMENT AND PASSES GAS FROM BELOW. Review of Systems 10-point ROS is otherwise unremarkable Gastrointestinal: Nausea, Distention (IS SMALLER THAN BEFORE.) Physical Examination - Vital Signs Temperature: 98.2 F Blood Pressure: 156/78 Pulse: 74 Respirations: 16 Pulse Ox (%): 95 - Physical Exam General: Alert, Moderate distress HEENT: Atraumatic, PERRLA, EOMI Neck: Supple, JVD not distended Respiratory: Clear to auscultation bilaterally, Normal air movement Cardiovascular: Regular rate/rhythm, Normal S1 S2 Gastrointestinal: Hypoactive, Non-distended (SOFT) Musculoskeletal: No tenderness Integumentary: No rashes Neurological: Normal speech, Normal tone, Normal affect Lymphatics: No axilla or inguinal lymphadenopathy - Studies Medications List Reviewed: Yes Assessment And Plan - Current Problems (Diagnosis) (1) Postoperative ileus Current Visit: Yes Status: Acute Plan: DR. VAZ ON CASE NGT AND LIS. IMPROVED HOPFEULLY DIET SOON. PASSING GAS AND HAVING MOVEMENT FROM RECTUM IS A GOOD SIGN. I EXPLAINED TO AND HIM. HE WILL FEEL BETTER SOON, I BELIEVE WHEN THE NGT COMES OUT DR VAZ CALLED ME AND HE WILL TRY TO DO THAT TODAY. NOT WELL YET DR. VAZ TO START [facility] PPN[facility] (2) Vertigo Current Visit: Yes Status: Acute Plan: IV BENADRYL 25 MG. MAY HELP THIS SS CURRENTLY WITH NGT HE CAN'T TAKE ANTIVERT. SOMETIMES MEDS WILL GIVE THIS SE. (3) Acute appendicitis Onset Date: 12/28/17 Current Visit: Yes Status: Acute Plan: SP SURGERY. STABLE. (4) Hypokalemia Current Visit: Yes Status: Acute Plan: REPLACE, K AND PHOS THESE ARE LOW FROM NGT WITH LIS. (5) Hypophosphatemia Current Visit: Yes Status: Acute (6) Hiccoughs Current Visit: Yes Status: Acute Plan: PHENERGAN IV FOR HICCOUGHS. WE DO NOT HAVE THORAZINE OR COMPAZINE IN THIS HOSPITAL. THIS MAY FROM NGT. (7) Anemia Current Visit: Yes Status: Acute Plan: NGT HAS GIVEN SOME GASTRITIS MAINLY HE HAS COFFEE GROUNDS FROM NGT SUCTION BUT LESSER TODAY I PUT HIM ON PROTONIX IV.
--- NOTE | 2018-01-02 15:11 | PN ---
Date of Progress Note: 01/02/2018 Subjective: The patient is awake, alert. No nausea or vomiting. He has had about 500 cc out of his NG tube. He is having diarrhea. C diff is pending. Small bowel series reviewed with the radiologi st, shows no evidence of obstruction. Contrast did reach the colon, however, it was slow, given 7 ho urs. White count is normal. H and H are slightly low, but the patient is on Protonix. May have str ess gastritis. Objective: Abdomen: Soft, nontender. No peritonitis, however. Slightly distended. Hypoactive bow el sounds. Assessment: Status post laparoscopic appendectomy with prolonged ileus, rule out Clostridium diffici le colitis. Recommendations: We will start the patient on TPN today as he is not progressed well enough to start oral feeds. We will get a PICC line. Continue on the antibiotics. Check the stool for C diff. No need for any acute surgical intervention at this time. Plan of care discussed in detail with the dread chowdhury and family. BHARAT/VARSHA Voice ID: [id number] Report ID: [id number]
[2018-01-02] MEDS ORDERED: KCL 20 MEQ/100 mL IVPB 20 MEQ/100 ML BAG IV SCH (18:00)
[2018-01-02] MEDS: HYDROMORPHONE HCL 1 MG/ML INJ IV PRN (20:49)
[2018-01-03] MEDS: PIPER/TAZO/NS 3.375gm 3.375 GM/100 ML BAG IVPB SCH ×3 (00:35→16:56)
[2018-01-03] MEDS: PROMETHAZINE 25 MG/ML VIAL IV PRN ×3 (00:35→17:48)
[2018-01-03 05:12] LABS: Phosphorus 2.3 mg/dL (2.5-4.9); Potassium 3.2 mmol/L (3.5-5.1)
[2018-01-03] MEDS: METRONIDAZOLE 500mg IVPB 500 MG/100 ML BAG IV SCH ×3 (05:14→17:45)
[2018-01-03] MEDS: D5 0.45 NS 1,000 ML IV SCH ×2 (06:21→14:07)
[2018-01-03] MEDS ORDERED: KCL 20 MEQ/100 mL IVPB 20 MEQ/100 ML BAG IV SCH ×2 (07:00)
--- NOTE | 2018-01-03 07:55 | RAD REPORT ---
EXAM DESCRIPTION: RAD - Chest Single View - 01/02/2018 10:06 pm CLINICAL HISTORY: Device placement PICC line placement COMPARISON: December 27, 2017 FINDINGS: A PICC line has been inserted with its tip in the distal superior vena cava. Small pleural effusions may be present with mild bibasilar atelectasis. The heart is mildly enlarged. Nasogastric tube is present. Mediastinum remains mildly prominent. IMPRESSION: PICC line with its tip in the distal superior vena cava
[2018-01-03] MEDS ORDERED: DEXTROSE 10%-WATER 500 ML IV SCH (09:00)
[2018-01-03] MEDS ORDERED: POTASSIUM PHOS IN 0.9 % NACL 15 MMOL/250 ML BAG IV ONE ×2 (09:00→11:00)
[2018-01-03] MEDS: PANTOPRAZOLE 40 MG INJ IVP SCH ×2 (09:09→20:47)
--- NOTE | 2018-01-03 13:18 | PN ---
Date of Progress Note: 01/03/2018 Subjective: The patient is awake and alert, feels better, has had 1 bowel movement last night. The diarrhea has much improved, passing gas. Objective: Vital Signs: Stable. Afebrile. Abdomen: Soft, nondistended, and nontender. Positive bowel sounds. Assessment: Status post laparoscopic appendectomy, prolonged ileus. Recommendations: Continue n.p.o., NG tube, TPN, IV antibiotics. If the patient continues to improve , we will start clear liquids tomorrow. We will have to go slow on this patient as he has had a prol onged ileus and we will check an x-ray and blood work tomorrow morning to make sure he is going in th e right direction. BHARAT/VARSHA Voice ID: [id number] Report ID: [id number]
[2018-01-03] MEDS: AA 5%/D20W/ELECTROLYTES-TPN 2,000 ML, Lipids 20% 250 ML with MULTIVITAMINS INJ 10 ML IV SCH ×3 (17:45)
--- NOTE | 2018-01-03 21:05 | P.PN ---
Subjective Date of Service: 01/03/18 Chief Complaint: ILEUS Subjective: Improving (HICCOUGHS ARE A LOT BETTER. ABDOMEN IS LOT SOFTER.) HE IS UNCOMFORTABLE WITH NGT. HAS SOME BLOOD IN THE NGT SUCTION. HE HAS HAD BM AND PASSES GAS NOW. HE FELT GREAT LAST NIGHT BUT THIS AM HE IS NOT FEELING GOOD. HE HAS HICCOUGHS, NGT IS NOT COMFORTABLE , HE STILL HAS LIQUID BOWEL MOVEMENT AND PASSES GAS FROM BELOW. Review of Systems 10-point ROS is otherwise unremarkable General: Weakness, Malaise Gastrointestinal: No Distention Physical Examination - Vital Signs Temperature: 99.6 F Blood Pressure: 139/76 Pulse: 76 Respirations: 18 Pulse Ox (%): 91 - Physical Exam General: Alert, Mild distress HEENT: Atraumatic, PERRLA, EOMI Neck: Supple, JVD not distended Respiratory: Clear to auscultation bilaterally, Normal air movement Cardiovascular: Regular rate/rhythm, Normal S1 S2 Gastrointestinal: Normal bowel sounds, No tenderness Musculoskeletal: No tenderness Integumentary: No rashes Neurological: Normal speech, Normal tone, Normal affect Lymphatics: No axilla or inguinal lymphadenopathy - Studies Medications List Reviewed: Yes Assessment And Plan - Current Problems (Diagnosis) (1) Postoperative ileus Current Visit: Yes Status: Acute Plan: DR. VAZ ON CASE NGT AND LIS. IMPROVED HOPFEULLY DIET SOON. PASSING GAS AND HAVING MOVEMENT FROM RECTUM IS A GOOD SIGN. I EXPLAINED TO AND HIM. HE WILL FEEL BETTER SOON, I BELIEVE WHEN THE NGT COMES OUT DR VAZ CALLED ME AND HE WILL TRY TO DO THAT TODAY. NOT WELL YET DR. VAZ TO START ON PPN. [facility] AGAIN TODAY. HE IS LOT BETTER. HAS HAD A FEW BMS HIS BOWEL SOUNDS ARE PROMINENT COMPARED TO YESERDAY (2) Vertigo Current Visit: Yes Status: Acute Plan: IV BENADRYL 25 MG. MAY HELP THIS SS CURRENTLY WITH NGT HE CAN'T TAKE ANTIVERT. SOMETIMES MEDS WILL GIVE THIS SE. (3) Acute appendicitis Onset Date: 12/28/17 Current Visit: Yes Status: Acute Plan: SP SURGERY. STABLE. (4) Hypokalemia Current Visit: Yes Status: Acute Plan: REPLACE, K AND PHOS THESE ARE LOW FROM NGT WITH LIS. (5) Hypophosphatemia Current Visit: Yes Status: Acute (6) Hiccoughs Current Visit: Yes Status: Acute Plan: PHENERGAN IV FOR HICCOUGHS. WE DO NOT HAVE THORAZINE OR COMPAZINE IN THIS HOSPITAL. THIS MAY FROM NGT. (7) Anemia Current Visit: Yes Status: Acute Plan: NGT HAS GIVEN SOME GASTRITIS MAINLY HE HAS COFFEE GROUNDS FROM NGT SUCTION BUT LESSER TODAY I PUT HIM ON PROTONIX IV.
[2018-01-04] MEDS: METRONIDAZOLE 500mg IVPB 500 MG/100 ML BAG IV SCH ×4 (00:52→17:44)
[2018-01-04] MEDS: KCL 20 MEQ/100 mL IVPB 20 MEQ/100 ML BAG IV SCH ×2 (01:54→04:00)
[2018-01-04] MEDS ORDERED: GLUCAGON 1 MG/VIAL IM PRN (02:39)
[2018-01-04] MEDS ORDERED: D50W 25 GM/50 ML SYRINGE IV PRN (02:39)
[2018-01-04] MEDS: PIPER/TAZO/NS 3.375gm 3.375 GM/100 ML BAG IVPB SCH ×4 (04:07→23:13)
[2018-01-04 05:51] LABS: Absolute Monocytes 0.8 K/uL (0.1-1.3); Absolute Neutrophil 6.5 K/uL (1.8-8.0); Basophils % 0.9 % (0-1.3); Eosinophils % 4.6 % (0-4.4); Hematocrit 35.4 % (39.6-49.0); Lymphocytes % 11.7 % (15.3-44.8); MCV 91.7 fL (80-100); Monocytes % 8.9 % (3.3-12.3); RBC Red Blood Cell Count 3.86 M/uL (4.33-5.43)
[2018-01-04] MEDS: INSULIN -REGULAR HUMAN 50 UNIT/0.5 ML ML SQ SCH ×3 (06:00→18:00)
[2018-01-04 06:06] LABS: Magnesium 2.3 mg/dL (1.8-2.4); Phosphorus 2.5 mg/dL (2.5-4.9); Potassium 3.3 mmol/L (3.5-5.1)
[2018-01-04] MEDS ORDERED: POTASSIUM PHOS IN 0.9 % NACL 15 MMOL/250 ML BAG IV ONE (08:00)
--- NOTE | 2018-01-04 08:51 | RAD REPORT ---
EXAM DESCRIPTION: RAD - Abdomen W Erect - 01/04/2018 8:40 am CLINICAL HISTORY: Sternal Pain Pain COMPARISON: Abdomen W Erect dated 01/01/2018; Abdomen Single View dated 01/02/2018 FINDINGS: Atelectasis is suspected in both lung bases, greater on the left, with small pleural effus ions. Early infiltrate/ aspiration difficult to completely exclude in these regions. Enteric tube tip is in the stomach. A right-sided venous catheter is partially imaged and has tip in the right atrium . Distention of small large bowel in a non-organized fashion is noted compatible with diffuse adynamic ileus. Contrast material seen in the colon. Overall, degree of ileus distention has improved mildly. No finding suspicious for pneumoperitoneum. IMPRESSION: Mild improvement in diffuse adynamic ileus.
[2018-01-04] MEDS: PANTOPRAZOLE 40 MG INJ IVP SCH ×2 (09:26→21:21)
--- NOTE | 2018-01-04 16:10 | PN ---
Date of Progress Note: 01/04/2018 Subjective: The patient is awake, alert, passing gas, and having bowel movements. Objective: Vital Signs: Stable. Afebrile. Abdomen: Soft, very minimally distended, but positive bowel sounds. No tenderness. Laboratory Data: White count is normal. X-rays reviewed, show improvement in his ileus, but not carter te normal yet. Assessment: Status post laparoscopic appendectomy with prolonged ileus. Recommendations: Continue TPN, IV antibiotics. We will clamp the NG tube and start him on sips of c lear liquids today as clinically he looks better than his x-ray, and we will follow him closely, chec k residuals and see if he can be advanced tomorrow. Hopefully within the next 48-72 hours, we can, i f patient progresses like he has been in the last couple of days, should be able to discharge him. /MODL Voice ID: [id number] Report ID: [id number]
--- NOTE | 2018-01-04 17:00 | P.PN ---
Subjective Date of Service: 01/04/18 Chief Complaint: GOOD BOWEL MOVMENTS NOW. Subjective: Improving HE IS UNCOMFORTABLE WITH NGT. HAS SOME BLOOD IN THE NGT SUCTION. HE HAS HAD BM AND PASSES GAS NOW. HE FELT GREAT LAST NIGHT BUT THIS AM HE IS NOT FEELING GOOD. HE HAS HICCOUGHS, NGT IS NOT COMFORTABLE , HE STILL HAS LIQUID BOWEL MOVEMENT AND PASSES GAS FROM BELOW. HE STILL HAS NGT, HICCOUGHS FROM IT. NO CHEST PAIN. Review of Systems 10-point ROS is otherwise unremarkable Gastrointestinal: No Distention Physical Examination - Vital Signs Temperature: 97.8 F Blood Pressure: 132/75 Pulse: 75 Respirations: 18 Pulse Ox (%): 98 - Physical Exam General: Alert, Mild distress HEENT: Atraumatic, PERRLA, EOMI Neck: Supple, JVD not distended Respiratory: Clear to auscultation bilaterally, Normal air movement Cardiovascular: Regular rate/rhythm, Normal S1 S2 Gastrointestinal: Normal bowel sounds, No tenderness Musculoskeletal: No tenderness Integumentary: No rashes Neurological: Normal speech, Normal tone, Normal affect Lymphatics: No axilla or inguinal lymphadenopathy - Studies Medications List Reviewed: Yes Assessment And Plan - Current Problems (Diagnosis) (1) Postoperative ileus Current Visit: Yes Status: Acute Plan: DR. VAZ ON CASE NGT AND LIS. IMPROVED HOPFEULLY DIET SOON. PASSING GAS AND HAVING MOVEMENT FROM RECTUM IS A GOOD SIGN. I EXPLAINED TO AND HIM. HE WILL FEEL BETTER SOON, I BELIEVE WHEN THE NGT COMES OUT DR VAZ CALLED ME AND HE WILL TRY TO DO THAT TODAY. NOT WELL YET DR. VAZ TO START ON PPN. [facility] FAMILY AGAIN TODAY. HE IS LOT BETTER. HAS HAD A FEW BMS HIS BOWEL SOUNDS ARE PROMINENT COMPARED TO YESERDAY FOR TWO DAYS HE HAS GOOD BOWEL SOUNDS. I CALLED DR. VAZ AND HE MAY GIVE FLUIDS SOON. (2) Vertigo Current Visit: Yes Status: Acute Plan: IV BENADRYL 25 MG. MAY HELP THIS SS CURRENTLY WITH NGT HE CAN'T TAKE ANTIVERT. SOMETIMES MEDS WILL GIVE THIS SE. (3) Acute appendicitis Onset Date: 12/28/17 Current Visit: Yes Status: Acute Plan: SP SURGERY. STABLE. (4) Hypokalemia Current Visit: Yes Status: Acute Plan: REPLACE, K AND PHOS THESE ARE LOW FROM NGT WITH LIS. (5) Hypophosphatemia Current Visit: Yes Status: Acute (6) Hiccoughs Current Visit: Yes Status: Acute Plan: PHENERGAN IV FOR HICCOUGHS. WE DO NOT HAVE THORAZINE OR COMPAZINE IN THIS HOSPITAL. THIS MAY FROM NGT. (7) Anemia Current Visit: Yes Status: Acute Plan: NGT HAS GIVEN SOME GASTRITIS MAINLY HE HAS COFFEE GROUNDS FROM NGT SUCTION BUT LESSER TODAY I PUT HIM ON PROTONIX IV.
[2018-01-04] MEDS: AA 5%/D20W/ELECTROLYTES-TPN 2,000 ML, Lipids 20% 250 ML with MULTIVITAMINS INJ 10 ML IV SCH ×3 (17:44)
[2018-01-04] MEDS: DIPHENHYDRAMINE 12.5MG/5ML LIQ FT PRN (21:27)
[2018-01-05] MEDS: INSULIN -REGULAR HUMAN 50 UNIT/0.5 ML ML SQ SCH ×4 (06:00→18:00)
[2018-01-05 06:14] LABS: Absolute Monocytes 0.7 K/uL (0.1-1.3); Absolute Neutrophil 5.4 K/uL (1.8-8.0); Eosinophils % 6.4 % (0-4.4); Lymphocytes % 13.4 % (15.3-44.8); MCH 31.2 pg (27.0-35.0); MPV 7.2 fL (7.6-11.3); Monocytes % 9.4 % (3.3-12.3); RBC Red Blood Cell Count 3.91 M/uL (4.33-5.43)
[2018-01-05 06:28] LABS: Potassium 3.4 mmol/L (3.5-5.1)
[2018-01-05] MEDS ORDERED: POTASSIUM CL SA 10 MEQ TAB PO ONE ×2 (07:11→17:35)
[2018-01-05] MEDS ORDERED: POTASSIUM 25 MEQ EFFERV TAB PO ONE (07:30)
[2018-01-05] MEDS: PIPER/TAZO/NS 3.375gm 3.375 GM/100 ML BAG IVPB SCH ×2 (09:10→16:14)
[2018-01-05] MEDS: PANTOPRAZOLE 40 MG INJ IVP SCH ×2 (09:10→21:56)
--- NOTE | 2018-01-05 13:37 | PN ---
Date of Progress Note: 01/05/2018 Subjective: The patient is still having bowel movements. Passing gas. Tolerated clear liquids. Re sidual was minimal. White count is normal. Left shift has normalized. Objective: Vital signs: Stable, afebrile. Abdomen: Soft, nondistended, nontender. Positive bowel sounds. Assessment: Status post laparoscopic appendectomy, prolonged ileus. Recommendation: Discontinue NG tube, begin full liquids, taper TPN down. Continue IV antibiotics. /MODL Voice ID: [id number] Report ID: [id number]
--- NOTE | 2018-01-05 14:41 | P.PN ---
Subjective Date of Service: 01/05/18 Chief Complaint: FEELS LOT BETTER. Subjective: Improving (ABLE TO WALK AROUND, PASSES BM , ABLE TO TOLERATE LIQUIDS.) HE IS UNCOMFORTABLE WITH NGT. HAS SOME BLOOD IN THE NGT SUCTION. HE HAS HAD BM AND PASSES GAS NOW. HE FELT GREAT LAST NIGHT BUT THIS AM HE IS NOT FEELING GOOD. HE HAS HICCOUGHS, NGT IS NOT COMFORTABLE , HE STILL HAS LIQUID BOWEL MOVEMENT AND PASSES GAS FROM BELOW. HE STILL HAS NGT, HICCOUGHS FROM IT. NO CHEST PAIN. Review of Systems 10-point ROS is otherwise unremarkable General: Weakness, Malaise Physical Examination - Vital Signs Temperature: 98.5 F Blood Pressure: 135/75 Pulse: 77 Respirations: 16 Pulse Ox (%): 95 - Physical Exam General: Mild distress (NGT CAME OUT TODAY.) HEENT: Atraumatic, PERRLA, EOMI Neck: Supple, JVD not distended Respiratory: Clear to auscultation bilaterally, Normal air movement Cardiovascular: Regular rate/rhythm, Normal S1 S2 Gastrointestinal: Normal bowel sounds, No tenderness Musculoskeletal: No tenderness Integumentary: No rashes Neurological: Normal speech, Normal tone, Normal affect Lymphatics: No axilla or inguinal lymphadenopathy - Studies Medications List Reviewed: Yes Assessment And Plan - Current Problems (Diagnosis) (1) Postoperative ileus Current Visit: Yes Status: Acute Plan: DR. VAZ ON CASE NGT AND LIS. IMPROVED HOPFEULLY DIET SOON. PASSING GAS AND HAVING MOVEMENT FROM RECTUM IS A GOOD SIGN. I EXPLAINED TO AND HIM. HE WILL FEEL BETTER SOON, I BELIEVE WHEN THE NGT COMES OUT DR VAZ CALLED ME AND HE WILL TRY TO DO THAT TODAY. NOT WELL YET DR. VAZ TO START ON PPN. [facility]. HE IS LOT BETTER. HAS HAD A FEW BMS HIS BOWEL SOUNDS ARE PROMINENT COMPARED TO YESERDAY FOR TWO DAYS HE HAS GOOD BOWEL SOUNDS. I CALLED DR. VAZ AND HE MAY GIVE FLUIDS SOON. DC IN [place] TWO DAYS POSSIBLE. HE IS STABLE AND IMPROVING. (2) Vertigo Current Visit: Yes Status: Acute Plan: IV BENADRYL 25 MG. MAY HELP THIS SS CURRENTLY WITH NGT HE CAN'T TAKE ANTIVERT. SOMETIMES MEDS WILL GIVE THIS SE. (3) Acute appendicitis Onset Date: 12/28/17 Current Visit: Yes Status: Acute Plan: SP SURGERY. STABLE. (4) Hypokalemia Current Visit: Yes Status: Acute Plan: REPLACE, K AND PHOS THESE ARE LOW FROM NGT WITH LIS. (5) Hypophosphatemia Current Visit: Yes Status: Acute (6) Hiccoughs Current Visit: Yes Status: Acute Plan: PHENERGAN IV FOR HICCOUGHS. WE DO NOT HAVE THORAZINE OR COMPAZINE IN THIS HOSPITAL. THIS MAY FROM NGT. (7) Anemia Current Visit: Yes Status: Acute Plan: NGT HAS GIVEN SOME GASTRITIS MAINLY HE HAS COFFEE GROUNDS FROM NGT SUCTION BUT LESSER TODAY I PUT HIM ON PROTONIX IV.
[2018-01-05] MEDS: SODIUM CHLORIDE 0.9% 10ML INJ IV PRN (21:56)
[2018-01-06 05:04] LABS: Potassium 3.9 mmol/L (3.5-5.1)
[2018-01-06] MEDS: INSULIN -REGULAR HUMAN 50 UNIT/0.5 ML ML SQ SCH ×3 (08:12→11:30)
[2018-01-06] MEDS ORDERED: POTASSIUM 25 MEQ EFFERV TAB PO ONE (09:00)
[2018-01-06] MEDS: PIPER/TAZO/NS 3.375gm 3.375 GM/100 ML BAG IVPB SCH ×2 (10:48)
[2018-01-06] MEDS: PANTOPRAZOLE 40 MG INJ IVP SCH ×2 (10:48→22:05)
--- NOTE | 2018-01-06 11:15 | P.PN ---
Subjective Date of Service: 01/06/18 Chief Complaint: HE IS FEELING GREAT NOW Subjective: Improving HE IS UNCOMFORTABLE WITH NGT. HAS SOME BLOOD IN THE NGT SUCTION. HE HAS HAD BM AND PASSES GAS NOW. HE FELT GREAT LAST NIGHT BUT THIS AM HE IS NOT FEELING GOOD. HE HAS HICCOUGHS, NGT IS NOT COMFORTABLE , HE STILL HAS LIQUID BOWEL MOVEMENT AND PASSES GAS FROM BELOW. HE STILL HAS NGT, HICCOUGHS FROM IT. NO CHEST PAIN. HE IS ABLE TO TOLERATE EGGS AND PANCAKE GOOD BS NOW. DAILY BM NOW. IS WORRIED ABOUT SEPSIS. I TOLD HER PATIENTS WITH SEPSIS DON'T LOOK AND FEELS THIS GOOD. HE HAS NO SIGNS OF SEPSIS. Review of Systems 10-point ROS is otherwise unremarkable Physical Examination - Vital Signs Temperature: 97.7 F Blood Pressure: 115/62 Pulse: 88 Respirations: 16 Pulse Ox (%): 95 - Physical Exam General: Alert, In no apparent distress HEENT: Atraumatic, PERRLA, EOMI Neck: Supple, JVD not distended Respiratory: Clear to auscultation bilaterally, Normal air movement Cardiovascular: Regular rate/rhythm, Normal S1 S2 Gastrointestinal: Normal bowel sounds, No tenderness Musculoskeletal: No tenderness Integumentary: No rashes Neurological: Normal speech, Normal tone, Normal affect Lymphatics: No axilla or inguinal lymphadenopathy - Studies Medications List Reviewed: Yes Assessment And Plan - Current Problems (Diagnosis) (1) Postoperative ileus Current Visit: Yes Status: Acute Plan: DR. VAZ ON CASE NGT AND LIS. IMPROVED HOPFEULLY DIET SOON. PASSING GAS AND HAVING MOVEMENT FROM RECTUM IS A GOOD SIGN. I EXPLAINED TO AND HIM. HE WILL FEEL BETTER SOON, I BELIEVE WHEN THE NGT COMES OUT DR VAZ CALLED ME AND HE WILL TRY TO DO THAT TODAY. NOT WELL YET DR. VAZ TO START ON PPN. COULNSELED FAMILY AGAIN TODAY. HE IS LOT BETTER. HAS HAD A FEW BMS HIS BOWEL SOUNDS ARE PROMINENT COMPARED TO YESERDAY FOR TWO DAYS HE HAS GOOD BOWEL SOUNDS. I CALLED DR. VAZ AND HE MAY GIVE FLUIDS SOON. DC IN [place] TWO DAYS POSSIBLE. HE IS STABLE AND IMPROVING. NGT IS OUT HE LOOKS LOT HAPPIER. HE HAS NO ACUTE SYMPTOMS AT PRESENT EXCEPT SOME HICCOUGH. (2) Vertigo Current Visit: Yes Status: Acute Plan: IV BENADRYL 25 MG. MAY HELP THIS SS CURRENTLY WITH NGT HE CAN'T TAKE ANTIVERT. SOMETIMES MEDS WILL GIVE THIS SE. (3) Acute appendicitis Onset Date: 12/28/17 Current Visit: Yes Status: Acute Plan: SP SURGERY. STABLE. (4) Hypokalemia Current Visit: Yes Status: Acute Plan: REPLACE, K AND PHOS THESE ARE LOW FROM NGT WITH LIS. (5) Hypophosphatemia Current Visit: Yes Status: Acute (6) Hiccoughs Current Visit: Yes Status: Acute Plan: PHENERGAN IV FOR HICCOUGHS. WE DO NOT HAVE THORAZINE OR COMPAZINE IN THIS HOSPITAL. THIS MAY FROM NGT. (7) Anemia Current Visit: Yes Status: Acute Plan: NGT HAS GIVEN SOME GASTRITIS MAINLY HE HAS COFFEE GROUNDS FROM NGT SUCTION BUT LESSER TODAY I PUT HIM ON PROTONIX IV.
--- NOTE | 2018-01-06 13:27 | PN ---
Date of Progress Note: 01/06/2018 Subjective: The patient is awake, alert, tolerating his full liquids. No nausea or vomiting. Havin g bowel movements. Passing gas. Objective: Vital Signs: Stable, afebrile. Abdomen: Soft, nondistended, nontender. Positive bowel sounds. Assessment: Status post laparoscopic appendectomy and prolonged ileus, improving. Recommendations: We will advance diet to GI soft, and if he tolerates it, possible discharge tomorro w. Continue antibiotics. /MODL Voice ID: [id number] Report ID: [id number]
[2018-01-06] MEDS: SODIUM CHLORIDE 0.9% 10ML INJ IV PRN (22:05)
[2018-01-06] MEDS: CEFUROXIME 250 MG TAB PO SCH (22:05)
[2018-01-06] MEDS: CHLORPROMAZINE 25 MG TAB PO SCH (22:06)
[2018-01-07] MEDS: PANTOPRAZOLE 40 MG INJ IVP SCH (09:00)
[2018-01-07] MEDS: CHLORPROMAZINE 25 MG TAB PO SCH (09:00)
--- NOTE | 2018-01-07 10:02 | P.DS ---
Admission Date: 12/30/17 Discharge Date: 01/07/18 Disposition: ROUTINE DISCHARGE Discharge Condition: GOOD Reason for Admission: HE IS FEELING GREAT NOW - Problems (1) Postoperative ileus Current Visit: Yes Status: Acute (2) Vertigo Current Visit: Yes Status: Acute (3) Acute appendicitis Onset Date: 12/28/17 Current Visit: Yes Status: Acute (4) Hypokalemia Current Visit: Yes Status: Acute (5) Hypophosphatemia Current Visit: Yes Status: Acute (6) Hiccoughs Current Visit: Yes Status: Acute (7) Anemia Current Visit: Yes Status: Acute Brief History of Present Illness: MR. WATKINS HAS BEEN IN THE HOSPITAL FOR APPENDICITIS. DR GUTIÉRREZ WAS TO TAKE CARE OF DISCHARGE BUT HE DEVELOPED ILEUS. FAMILY SOUGHT ME AT MY VISIT I AM HIS PCP. HE HAS DIZZINESS AND NAUSEA IN ADDITION TO ILEUS. DALTON IS DOING GREAT. HAS NO DYSPNEA, NO CHEST PAIN AND HAS IMPROVING GI STATUS. HE IS TOLERATING FOOD. HE IS EAGER TO GO HOME FOR TWO DAYS. HE HAD SHORT TACHYCARDIA EPISODE OF 104 THIS AM. IS VERY NERVOUS ABOUT ANY FINDING. HE DOES NOT HAVE ALL CRITERIA FOR PE BUT WILL DO CT SCAN ANGIOGRAM STAT AND WILL GO HOME AFTER THAT. IF HE HAS PE , HE IS STABLE TO BE ON ORAL MEDS LIKE XARELTO FOR IT. Vital Signs/Physical Exam: Temp Pulse Resp BP Pulse Ox 97.5 F 114 H 16 105/69 94 01/07/18 08:00 01/07/18 08:00 01/07/18 08:00 01/07/18 08:00 01/07/18 08:00 Laboratory Data at Discharge: WBC 7.7 K/uL (4.3-10.9) 01/05/18 05:32 Hgb 12.2 g/dL (13.6-17.9) L 01/05/18 05:32 Hct 36.0 % (39.6-49.0) L 01/05/18 05:32 Plt Count 481 K/uL (152-406) H 01/05/18 05:32 PT 11.6 SECONDS (9.5-12.5) 12/27/17 19:40 INR 0.98 12/27/17 19:40 Sodium 136 mmol/L (136-145) 01/06/18 04:30 Potassium 3.9 mmol/L (3.5-5.1) 01/06/18 04:30 BUN 9 mg/dL (7-18) 01/06/18 04:30 Creatinine 1.00 mg/dL (0.55-1.3) 01/06/18 04:30 Glucose 95 mg/dL (74-106) 01/06/18 04:30 Phosphorus 2.5 mg/dL (2.5-4.9) 01/04/18 05:32 Magnesium 2.3 mg/dL (1.8-2.4) 01/04/18 05:32 Total Bilirubin 0.5 mg/dL (0.2-1.0) 12/27/17 19:40 AST 12 U/L (15-37) L 12/27/17 19:40 ALT 21 U/L (12-78) 12/27/17 19:40 Alkaline Phosphatase 65 U/L (45-117) 12/27/17 19:40 Triglycerides 81 mg/dL (<150) 01/04/18 05:32 Lipase 195 U/L (73-393) 12/27/17 19:40 Home Medications: NK [No Home Meds] 12/27/17 Patient Discharge Instructions: KEEP STERISTRIPS ON AT ALL TIMES. MAY SHOWER SATUARDAY Diet: Regular Activity: No lifting more than 10 lbs Followup: Mustapha Gutiérrez MD [ACTIVE - CAN ADMIT] - 1 Week (Call for appointment.)
[2018-01-07] MEDS: CEFUROXIME 250 MG TAB PO SCH (10:22)
--- NOTE | 2018-01-07 10:35 | RAD REPORT ---
EXAM DESCRIPTION: CT - Chest For Pe Angio - 01/07/2018 10:04 am CLINICAL HISTORY: Shortness of breath COMPARISON: None. TECHNIQUE: Dynamically enhanced axial 3 mm thick images of the chest were obtained during administra tion of <100> mL Isovue 370 IV contrast. Coronal and oblique reconstruction images were generated and reviewed. Exam utilizes a protocol for optimal evaluation of pulmonary arterial tree. Maximum intensity projections 3D imaging was utilized All CT scans are performed using dose optimization technique as appropriate and may include automated exposure control or mA/KV adjustment according to patient size. FINDINGS: A pulmonary embolus is not seen. A thoracic aortic aneurysm is not noted. A pleural effusion is not seen. A pericardial effusion is not seen. A lung consolidation is not present. Minimal bibasilar atelectasis is seen IMPRESSION: Negative for a pulmonary embolism.
--- NOTE | 2018-01-08 03:56 | DS ---
Date of Discharge: 01/07/2018 Admission Diagnoses: Acute appendicitis, umbilical hernia. Discharge Diagnoses: Acute appendicitis, umbilical hernia with prolonged ileus. Hospital Course: The patient is a 62-year-old gentleman, underwent an uneventful appendectomy on the . Postoperatively, however, he developed a distended abdomen. Immediately after surgery, he wa s doing very well, however, he spiked temperature and initially discharged home, but came in because of the high temperature. Over the next couple of days, he developed increasing abdominal distention, nausea, was not able to tolerate diet. NG tube was placed. X-ray revealed adynamic ileus. This wa s treated conservatively with IV antibiotics, NG tube, IV fluids. As it was slow to progress, a smal l bowel series was done, did not show any small bowel obstruction, show slow transit time to the colo n, however, so the patient was started on TPN and then over the last 3 days, he has been improved rem arkably and NG tube was removed. He was started on clear liquids. Dr. Bowles followed him for his me dical issues and today, he is tolerating diet, ambulating, pain control with p.o. pain medication and afebrile, therefore, the patient will be discharged home if it is okay with Dr. Bowles. Disposition: Home. Condition: Stable. Discharge Instructions: Resume home medications and diet. Activity as tolerated. No heavy lifting. Follow up in my office in 1 week. Call for appointment. Tylenol No. 3 one tablet p.o. q.4 p.r.n. pain, Cipro 500 mg p.o. q.12, Flagyl 500 mg p.o. q.6. Follow up with Dr. Bowles as well. /MODL Voice ID: [id number] Report ID: [id number]
== END 2018-01-07 11:24 | disposition home or self-care (01) | DRG 342 ==
LOC: ER 19:05 → ERHOLD 22:30 → 2ND 23:17 → OBSVTOIN 12-30 12:41
PROVIDERS: ADMIT Surgery; ATTEND Surgery
PROC: 0WQF0ZZ Repair Abdominal Wall, Open Approach (ICD-10-PCS; 2017-12-28)
PROC: 0DTJ4ZZ Resection of Appendix, Percutaneous Endoscopic Approach (ICD-10-PCS; principal; 2017-12-28 10:00)
PROC: 0D9670Z Drainage of Stomach with Drainage Device, Via Natural or Artificial Opening (ICD-10-PCS; 2017-12-30)
PROC: 3E0G76Z Introduction of Nutritional Substance into Upper GI, Via Natural or Artificial Opening (ICD-10-PCS; 2018-01-01)
PROC: 02HV33Z Insertion of Infusion Device into Superior Vena Cava, Percutaneous Approach (ICD-10-PCS; 2018-01-02)
PROC: B548ZZA Ultrasonography of Superior Vena Cava, Guidance (ICD-10-PCS; 2018-01-02)
DX: K35.80 Unspecified acute appendicitis (principal); K56.7 Ileus, unspecified; K42.9 Umbilical hernia without obstruction or gangrene; E87.6 Hypokalemia; E83.39 Other disorders of phosphorus metabolism; R00.0 Tachycardia, unspecified; R42 Dizziness and giddiness; R06.6 Hiccough; D64.9 Anemia, unspecified
CPT/HCPCS: 36415; 71045; 71275; 74018; 74019; 74177; 74250; 80048; 80076; 82947; 82962; 83690; 83735; 83880; 84100; 84132; 84478; 84484; 85025; 85610; 87045; 87046; 87493; 88302; 88304; 93005; 96365; 96367; 96375; 99285; C9113; G0378; J0330; J0744; J1170; J2175; J2250; J2405; J2543; J2550; J2704; J2710; J3010; J7030; Q2035; Q9967

== ENCOUNTER 2018-05-25 02:41 | Observation (INO) | payer BC ==
--- OUTSIDE RECORDS SUMMARY | 2018-05-25 02:43 | XMS REPORT | Clinical Summary ---
:1955 Author Organization [facility]ist Address [address] [place] [address] Care Team Providers Name Role Phone Jazz Brice MD Primary Care Provider Allergies No Known Allergies Medications No known medications Active Problems No known active problems Family History Medical History Relation Name Comments Diabetes Father Coronary artery disease Maternal Grandfather age 75+ Breast cancer Mother Relation Name Status Comments Father Maternal Grandfather Mother Social History Tobacco Use Types Packs/Day Years Used Date Never Smoker Alcohol Use Drinks/Week oz/Week Comments Yes Sex Assigned at Date Recorded Not on file Job Start Date Occupation Industry Not on file Not on file Not on file Travel History Travel Start Travel End No recent travel history available. Last Filed Vital Signs Not on file Plan of Treatment Health Maintenance Due Date Last Done Comments COLON CANCER SCREENING 11/04/2007 SHINGLES VACCINES (#1) 11/04/2007 INFLUENZA VACCINE 10/11/2017 Results Not on fileafter 05/24/2017 Insurance Payer Benefit Plan / Group Subscriber ID Type Phone Address BCBS BCBS CHOICE PPO/[employer] PPO xxxxxxxxxxxx PPO (Home) [place] [address] Advance Directives Patient has advance care planning documents on file. For more information, please contact:[address] [address]
[2018-05-25 03:15] LABS: Absolute Lymphocytes (CBC) 0.8 K/uL (0.7-4.9); Absolute Monocytes 0.7 K/uL (0.1-1.3); Absolute Neutrophil 13.3 K/uL (1.8-8.0); Basophils % 0.2 % (0-1.3); Hematocrit 47.3 % (39.6-49.0); Lymphocytes % 5.1 % (15.3-44.8); MPV 8.2 fL (7.6-11.3); Monocytes % 4.8 % (3.3-12.3); RBC Red Blood Cell Count 5.23 M/uL (4.33-5.43)
[2018-05-25 03:18] LABS: Protime INR 0.96
[2018-05-25] MEDS ORDERED: NA CHLORIDE 0.9% 1,000 ML ONE (03:28)
[2018-05-25] MEDS ORDERED: TETANUS & DIPHTHERIA TOX,ADULT 0.5 ML VIAL ONE (03:28)
[2018-05-25 03:37] LABS: ALT/SGPT 27 U/L (12-78); AST/SGOT 13 U/L (15-37); Albumin 4.4 g/dL (3.4-5.0); Alkaline Phosphatase 72 U/L (45-117); BUN Blood Urea Nitrogen 30 mg/dL (7-18); Bicarbonate 26 mmol/L (21-32); Bilirubin Direct 0.1 mg/dL (0-0.2); Bilirubin Total 0.4 mg/dL (0.2-1.0); Glucose Level 149 mg/dL (74-106); Magnesium 2.4 mg/dL (1.8-2.4); NT PRO-BNP 16 pg/mL (<125); Potassium 3.9 mmol/L (3.5-5.1); Protein, Total 9.1 g/dL (6.4-8.2); Sodium Level 140 mmol/L (136-145); Troponin (Emerg Dept Use Only) < 0.02 ng/mL (0.0-0.045)
[2018-05-25] MEDS ORDERED: LIDOCAINE 1.5% W/EPI AMP 5 ML ONE (03:39)
[2018-05-25 03:54] LABS: Blood Morphology Comment NOT SEEN (NOT SEEN); Platelet Estimate ADEQ; Urine White Blood Cell Casts OK
[2018-05-25] MEDS ORDERED: ONDANSETRON 4 MG/2 ML VIAL ONE (03:59)
--- NOTE | 2018-05-25 04:30 | ER ---
Nurse's Notes [facility] Name: Sammy Bennett Jr Age: 62 yrs Sex: Male : 1955 Arrival Date: 05/25/2018 Time: 02:50 Bed 3 Private MD: Diagnosis: Syncope and collapse;Dislocation of proximal interphalangeal joint of left little finger;Laceration without foreign body of other part of head Presentation: 05/25 02:51 Presenting complaint: EMS states: Per , patient went to bathroom about 0030, had lp1 episode of diarrhea, chills; About an hour later patient up to bathroom again, states hearing a "thud", patient was unresponsive per ; On arrival of EMS, patient A/O x3, deformity noted to left 5th digit, laceration to top of head; +LOC, patient cannot recall event. Care prior to arrival: Medication(s) given: Normal saline infusion, 500 mL, IV initiated. 18 GA, in the right antecubital area, Glucose check: 180 Oxygen administered. via nasal cannula. Mechanism of Injury: Fall Unknown distance of fall. Trauma event details: Injury occurred in the [facility], Injury occurred: at home. Injury occurred: May 25, 2018 Injury occurred at: 02:00. 02:51 Acuity: MILVIA 2 lp1 02:51 Method Of Arrival: EMS: [facility] lp1 03:00 Transition of care: patient was not received from another setting of care. Onset of lp1 symptoms was May 25, 2018 at 02:00. Risk Assessment: Do you want to hurt yourself or someone else? Patient reports no desire to harm self or others. Initial Sepsis Screen: Does the patient meet any 2 criteria? No. Patient's initial sepsis screen is negative. Does the patient have a suspected source of infection? No. Patient's initial sepsis screen is negative. Trauma Activation: Alert Physician: ED Physician; Name: Liset; Notified At: 02:46; Arrived At: 02:46 Physician: General Surgeon; Name: ; Notified At: 02:46; Arrived At: Physician: Radiology; Name: Caitlyn Silverman; Notified At: 02:46; Arrived At: 02:46 Physician: Respiratory; Name: ; Notified At: 02:46; Arrived At: Physician: Lab; Name: ; Notified At: 02:46; Arrived At: Historical: - Allergies: 02:59 No Known Allergies; lp1 - Home Meds: 02:59 multivitamin Oral tab daily [Active]; lp1 - PMHx: 02:59 Arthritis; intestinal kink; lp1 - PSHx: 02:59 Appendectomy; lp1 - Immunization history: Last tetanus immunization: unknown. - Ebola Screening: : No symptoms or risks identified at this time. - Social history:: Smoking status: Patient/guardian denies using tobacco, never smoked. Screenin:00 Abuse screen: Denies threats or abuse. Denies injuries from another. Nutritional lp1 screening: No deficits noted. Tuberculosis screening: No symptoms or risk factors identified. Fall Risk Total Doherty Fall Scale indicates High Risk Score (45 or more points). Fall prevention measures have been instituted. Side Rails Up X 2 Family Present and informed to notify staff if the need to leave the bedside As available patient and family educated on Fall Prevention Program and Strategies. Primary Survey: 02:54 NO uncontrolled hemorrhage observed. A: The patient is alert. Airway: patent, No lp1 supplemental oxygen in use on arrival. Trachea midline. Breathing/Chest: Respiratory pattern: regular, Respiratory effort: spontaneous, unlabored, Breath sounds: clear, bilaterally. Chest inspection: symmetrical rise and fall of the chest. Circulation: Pulses: palpable right radial artery and left radial artery. Skin color: pale, Skin temperature: diaphoretic. Disability Alert. Exposure/Environment: All clothing and personal items were removed. Obvious injury(ies) are noted at this time: deformity noted to left 5th digit, laceration to top of head A warming method has been applied: A warm blanket has been provided to the patient. 03:45 Reassessment Airway Airway Patent Breathing/Chest Respiratory pattern Regular lp1 Respiratory effort Spontaneous Unlabored Breath sounds Clear Chest inspection Symmetrical Circulation Color Pale Temperature Diaphoretic Disability Alert. Secondary Survey: 02:57 HEENT: Head Other Laceration to top of head. Gastrointestinal: Patient reports Other lp1 diarrhea. : No deficits noted. Musculoskeletal: Bony deformity noted of left little finger. superficial abrasions to right lateral chest, right upper arm. Assessment: 03:01 General: Appears uncomfortable, ill, Behavior is appropriate for age. Pain: Complains lp1 of pain in scalp and left little finger Pain currently is 7 out of 10 on a pain scale. Quality of pain is described as aching. Neuro: Level of Consciousness is awake, alert, obeys commands, Oriented to person, place, situation, Pupils are PERRLA. Cardiovascular: Respiratory: Respiratory effort is even, Respiratory pattern is regular, Breath sounds are clear bilaterally. GI: Parent/caregiver reports the patient having diarrhea. : No signs and/or symptoms were reported regarding the genitourinary system. EENT: Derm: Skin is intact, Skin is diaphoretic, Skin is pale. Musculoskeletal: Circulation, motion, and sensation intact. Bony deformity noted of left little finger. 03:45 Reassessment: Patient states nausea after returning from CT, Provider notified; lp1 Continuing to report chills, trembling, warm blankets given. 04:45 Reassessment: Patient appears in no apparent distress at this time. Patient and/or lp1 family updated on plan of care and expected duration. Pain level reassessed. Patient resting, eyes closed, respirations unlabored; at bedside; Aware of pending admission. Vital Signs: 02:56 BP 132 / 85; Pulse 91; Resp 19; Temp 97.7(O); Pulse Ox 100% on R/A; Weight 102.06 kg; lp1 Height 6 ft. 4 in. (193.04 cm); Pain 8/10; 03:00 BP 114 / 75; Pulse 82; Resp 22; Pulse Ox 98% on R/A; lp1 04:00 BP 117 / 77; Pulse 79; Resp 22; Pulse Ox 98% on R/A; lp1 05:00 BP 122 / 78; Pulse 91; Resp 17; Pulse Ox 98% on R/A; lp1 05:36 BP 123 / 73; Pulse 89; Resp 19; Pulse Ox 97% on R/A; lp1 02:56 Body Mass Index 27.39 (102.06 kg, 193.04 cm) lp1 [employer] Coma Score: 03:00 Eye Response: spontaneous(4). Verbal Response: oriented(5). Motor Response: obeys lp1 commands(6). Total: 15. Trauma Score (Adult): 02:56 Eye Response: spontaneous(1); Verbal Response: oriented(1); Motor Response: obeys lp1 commands(2); Systolic BP: > 89 mm Hg(4); Respiratory Rate: 10 to 29 per min(4); [place] Score: 15; Trauma Score: 12 04:00 Eye Response: spontaneous(1); Verbal Response: oriented(1); Motor Response: obeys lp1 commands(2); Systolic BP: > 89 mm Hg(4); Respiratory Rate: 10 to 29 per min(4); [employer] Score: 15; Trauma Score: 12 ED Course: 02:50 Patient arrived in ED. lp1 02:53 Domo Hutchins MD is Attending Physician. gs 02:54 Triage completed. lp1 02:58 Patient has correct armband on for positive identification. Bed in low position. Side lp1 rails up X2. hall monitor on. Pulse ox on. NIBP on. 03:01 Arm band placed on right wrist. lp1 03:01 Patient maintains SpO2 saturation greater than 95% on room air. lp1 03:01 Thermoregulation: warm blanket given to patient. lp1 03:42 CT Stone Protocol In Process Unspecified. EDMS 03:42 CT Head C Spine In Process Unspecified. EDMS 03:43 Avis Portillo, SURI is Primary Nurse. lp1 04:00 Wound care: to laceration located on scalp was irrigated with normal saline. lp1 04:12 Assist provider with laceration repair on scalp that was between 7.6 to 12.5 cm using lp1 belgica. Set up tray. Performed by Domo Hutchins MD. 04:23 XRAY Chest (1 view) In Process Unspecified. EDMS 04:23 Hand Left 3 View XRAY In Process Unspecified. EDMS 04:27 Hossein Bowles MD is Hospitalizing Provider. gs 04:59 Patient admitted, IV remains in place. lp1 Administered Medications: 03:24 Not Given (unavailable): Lidocaine-Epinephrine -1%: (1:100,000) 8 ml 20 ml Infiltration lp1 once; to bedside 03:50 Drug: NS 0.9% 1000 ml Route: IV; Rate: 1 bolus; Site: right antecubital; lp1 05:00 Follow up: IV Status: Completed infusion; IV Intake: 1000ml lp1 03:55 Drug: Tetanus-Diphtheria Toxoid Adult 0.5 ml {Manager Professional Development: [employer]. Exp: lp1 04/26/2020. Lot #: [id number]. } Route: IM; Site: left deltoid; 04:53 Follow up: Response: No adverse reaction lp1 03:55 Drug: Zofran 4 mg Route: IVP; Site: right antecubital; lp1 04:53 Follow up: Response: Nausea is decreased lp1 04:15 Drug: lidocaine-epinephrine 1.5% 5ml vial 1 vials {Note: To laceration to scalp.} lp1 Route: Intradermal; Site: left forearm; Intake: 05:00 IV: 1000ml (IV Fluid); Total: 1000ml. lp1 05:00 IV: 1000ml; Total: 2000ml. lp1 Outcome: 04:29 Decision to Hospitalize by Provider. 04:59 Condition: stable lp1 04:59 Instructed on the need for admit. 05:01 Patient's length of stay in the Emergency Department was greater than 2 hours. Patient lp1 to be admitted Patient's length of stay extended due to 05:17 Admitted to Tele accompanied by tech, room 414, with chart, Report called to Adriana landrum RN 05:40 Patient left the ED. lp1 Signatures: Dispatcher [employer] EDMS Josseline Linn RN RN fc Pena, Laura, RN RN lp1 Domo Hutchins MD MD Corrections: (The following items were deleted from the chart) 04:18 03:45 Reassessment: Patient states nausea after returning from CT, Provider notified lp1lp1
--- NOTE | 2018-05-25 04:30 | EDPHYS ---
Physician Documentation [facility] Name: Sammy Bennett Jr Age: 62 yrs Sex: Male : 1955 Arrival Date: 05/25/2018 Time: 02:50 Bed 3 Private MD: ED Physician Domo Hutchins HPI: 05/25 04:20 This 62 yrs old Male presents to ER via EMS with complaints of Fall Injury. gs 04:20 The patient has experienced syncope, became unresponsive, collapsed, lost gs consciousness. Onset: The symptoms/episode began/occurred acutely, just prior to arrival. Duration: This was a single episode. Context: occurred at home, occurred while the patient was standing. Associated injury: Head/face: laceration, 7 cm(s), Left upper extremity: left little finger, deformity. Associated signs and symptoms: Pertinent positives: abdominal pain, diarrhea, Pertinent negatives: chest pain. Current symptoms: Currently, the patient is not experiencing any symptoms, the patient feels back to baseline. The patient has not experienced similar symptoms in the past. Historical: - Allergies: 02:59 No Known Allergies; lp1 - Home Meds: 02:59 multivitamin Oral tab daily [Active]; lp1 - PMHx: 02:59 Arthritis; intestinal kink; lp1 - PSHx: 02:59 Appendectomy; lp1 - Immunization history: Last tetanus immunization: unknown. - Ebola Screening: : No symptoms or risks identified at this time. - Social history:: Smoking status: Patient/guardian denies using tobacco, never smoked. ROS: 04:20 All other systems are negative. gs Exam: 04:20 Eyes: Pupils equal round and reactive to light, extra-ocular motions intact. Lids and gs lashes normal. Conjunctiva and sclera are non-icteric and not injected. Cornea within normal limits. Periorbital areas with no swelling, redness, or edema. ENT: Nares patent. No nasal discharge, no septal abnormalities noted. Tympanic membranes are normal and external auditory canals are clear. Oropharynx with no redness, swelling, or masses, exudates, or evidence of obstruction, uvula midline. Mucous membranes moist. Neck: Trachea midline, no thyromegaly or masses palpated, and no cervical lymphadenopathy. Supple, full range of motion without nuchal rigidity, or vertebral point tenderness. No Meningismus. Chest/axilla: Normal chest wall appearance and motion. Nontender with no deformity. No lesions are appreciated. Cardiovascular: Regular rate and rhythm with a normal S1 and S2. No gallops, murmurs, or rubs. Normal PMI, no JVD. No pulse deficits. Respiratory: Lungs have equal breath sounds bilaterally, clear to auscultation and percussion. No rales, rhonchi or wheezes noted. No increased work of breathing, no retractions or nasal flaring. Abdomen/GI: Soft, non-tender, with normal bowel sounds. No distension or tympany. No guarding or rebound. No evidence of tenderness throughout. Back: No spinal tenderness. No costovertebral tenderness. Full range of motion. Skin: Warm, dry with normal turgor. Normal color with no rashes, no lesions, and no evidence of cellulitis. Neuro: Awake and alert, GCS 15, oriented to person, place, time, and situation. Cranial nerves II-XII grossly intact. Motor strength 5/5 in all extremities. Sensory grossly intact. Cerebellar exam normal. Normal gait. 04:20 Head/face: Noted is a laceration(s), that is deep, 7.5 cm(s), of the top of head. 04:20 Musculoskeletal/extremity: Circulation is intact in all extremities. Sensation intact. Joints: the PIP of left little finger displays dislocation. 04:20 ECG was reviewed by the Attending Physician. Vital Signs: 02:56 BP 132 / 85; Pulse 91; Resp 19; Temp 97.7(O); Pulse Ox 100% on R/A; Weight 102.06 kg; lp1 Height 6 ft. 4 in. (193.04 cm); Pain 8/10; 03:00 BP 114 / 75; Pulse 82; Resp 22; Pulse Ox 98% on R/A; lp1 04:00 BP 117 / 77; Pulse 79; Resp 22; Pulse Ox 98% on R/A; lp1 05:00 BP 122 / 78; Pulse 91; Resp 17; Pulse Ox 98% on R/A; lp1 05:36 BP 123 / 73; Pulse 89; Resp 19; Pulse Ox 97% on R/A; lp1 02:56 Body Mass Index 27.39 (102.06 kg, 193.04 cm) lp1 Jhoana Coma Score: 03:00 Eye Response: spontaneous(4). Verbal Response: oriented(5). Motor Response: obeys lp1 commands(6). Total: 15. Trauma Score (Adult): 02:56 Eye Response: spontaneous(1); Verbal Response: oriented(1); Motor Response: obeys lp1 commands(2); Systolic BP: > 89 mm Hg(4); Respiratory Rate: 10 to 29 per min(4); [place] Score: 15; Trauma Score: 12 04:00 Eye Response: spontaneous(1); Verbal Response: oriented(1); Motor Response: obeys lp1 commands(2); Systolic BP: > 89 mm Hg(4); Respiratory Rate: 10 to 29 per min(4); [place] Score: 15; Trauma Score: 12 Laceration: 04:20 Wound Repair of 7.5cm ( 3.0in ) subcutaneous laceration to top of head. Distal gs neuro/vascular/tendon intact. Anesthesia: Local anesthetic administered with 5 mls of 1% lidocaine w/ Epi. Wound prep: Simple cleansing with betadine. Skin closed with 12 1-0 [place] using staple gun. Patient tolerated well. MDM: 02:53 Patient medically screened. 04:20 Differential Diagnosis: cardiac arrhythmia, idiopathic syncope, vasovagal episode. Data gs reviewed: vital signs, nurses notes, lab test result(s), EKG, radiologic studies. Data interpreted: monitor tech: Pulse oximetry:. Counseling: I had a detailed discussion with the patient and/or guardian regarding: the historical points, exam findings, and any diagnostic results supporting the discharge/admit diagnosis. Response to treatment: the patient's symptoms have markedly improved after treatment, and as a result, I will admit patient. 05/25 02:55 Order name: Basic Metabolic Panel 05/25 02:55 Order name: CBC with Diff 05/25 02:55 Order name: LFT's 05/25 02:55 Order name: Magnesium; Complete Time: 04:16 05/25 02:55 Order name: NT PRO-BNP; Complete Time: 04:16 05/25 02:55 Order name: PT-INR; Complete Time: 04:16 05/25 02:55 Order name: Troponin (emerg Dept Use Only); Complete Time: 04:16 05/25 02:55 Order name: XRAY Chest (1 view) 05/25 02:55 Order name: Hand Left 3 View XRAY 05/25 02:56 Order name: Basic Metabolic Panel; Complete Time: 04:16 EDMS 05/25 02:56 Order name: CBC with Automated Diff; Complete Time: 04:16 EDMS 05/25 02:56 Order name: Liver (Hepatic) Function; Complete Time: 04:16 EDMS 05/25 02:57 Order name: Glucose, Ancillary Testing; Complete Time: 04:16 EDMS 05/25 03:54 Order name: CBC Smear Scan; Complete Time: 04:16 EDMS 05/25 02:55 Order name: EKG; Complete Time: 02:56 05/25 02:55 Order name: Cardiac monitoring; Complete Time: 03:11 05/25 02:55 Order name: EKG - Nurse/Tech; Complete Time: 03:10 05/25 02:55 Order name: IV Saline Lock; Complete Time: 03:10 05/25 02:55 Order name: Labs collected and sent; Complete Time: 03:10 05/25 02:55 Order name: O2 Per Protocol; Complete Time: 03:10 05/25 02:55 Order name: O2 Sat Monitoring; Complete Time: 03:10 05/25 02:55 Order name: CT Stone Protocol 05/25 02:55 Order name: CT Head C Spine 05/25 04:39 Order name: Clear Liquid EDMS EC:20 Rate is 85 beats/min. Rhythm is regular. IA interval is normal. QRS interval is normal. gs QT interval is normal. T waves are Normal. No ST changes noted. Clinical impression: NSR w/ Non-specific ST/T Changes. Interpreted by me. Administered Medications: 03:24 Not Given (unavailable): Lidocaine-Epinephrine -1%: (1:100,000) 8 ml 20 ml Infiltration lp1 once; to bedside 03:50 Drug: NS 0.9% 1000 ml Route: IV; Rate: 1 bolus; Site: right antecubital; lp1 05:00 Follow up: IV Status: Completed infusion; IV Intake: 1000ml lp1 03:55 Drug: Tetanus-Diphtheria Toxoid Adult 0.5 ml {[employer]: [employer]. Exp: lp1 04/26/2020. Lot #: [id number]. } Route: IM; Site: left deltoid; 04:53 Follow up: Response: No adverse reaction lp1 03:55 Drug: Zofran 4 mg Route: IVP; Site: right antecubital; lp1 04:53 Follow up: Response: Nausea is decreased lp1 04:15 Drug: lidocaine-epinephrine 1.5% 5ml vial 1 vials {Note: To laceration to scalp.} lp1 Route: Intradermal; Site: left forearm; Disposition: 05/25/18 04:29 Hospitalization ordered by Hossein Bowles for Observation. Preliminary diagnosis are Syncope and collapse, Dislocation of proximal interphalangeal joint of left little finger, Laceration without foreign body of other part of head. - Bed requested for Telemetry/MedSurg (observation). - Status is Observation. lp1 - Condition is Stable. - Problem is new. - Symptoms have improved. UTI on Admission? No Critical care time excluding procedures: 04:20 Critical care time: Bedside Care: 10 minutes, Consultation: 10 minutes, Family gs Intervention: 10 minutes. Total time: 30 minutes Signatures: Dispatcher [employer] EDCA Malinda German RN RN Avis Portillo RN RN 1 Domo Hutchins MD MD gs Corrections: (The following items were deleted from the chart) 04:45 04:29 Hospitalization Ordered by Hossein Bowles MD for Observation. Preliminary diagnosis mw is Syncope and collapse; Dislocation of proximal interphalangeal joint of left little finger; Laceration without foreign body of other part of head. Bed requested for Telemetry/MedSurg (observation). Status is Observation. Condition is Stable. Problem is new. Symptoms have improved. UTI on Admission? No. gs 04:49 04:45 05/25/2018 04:29 Hospitalization Ordered by Hossein Bowles MD for Observation. mw Preliminary diagnosis is Syncope and collapse; Dislocation of proximal interphalangeal joint of left little finger; Laceration without foreign body of other part of head. Bed requested for Telemetry/MedSurg (observation). Status is Observation. Condition is Stable. Problem is new. Symptoms have improved. UTI on Admission? No. mw 05:40 04:49 05/25/2018 04:29 Hospitalization Ordered by Hossein Bowles MD for Observation. lp1 Preliminary diagnosis is Syncope and collapse; Dislocation of proximal interphalangeal joint of left little finger; Laceration without foreign body of other part of head. Bed requested for Telemetry/MedSurg (observation). Status is Observation. Condition is Stable. Problem is new. Symptoms have improved. UTI on Admission? No. mw
[2018-05-25] MEDS ORDERED: ONDANSETRON 4 MG/2 ML VIAL IV PRN (04:37)
[2018-05-25] MEDS ORDERED: NA CHLORIDE 0.9% 1,000 ML IV SCH (05:00)
--- NOTE | 2018-05-25 05:31 | EKG ---
Test Date: 2018-05-25 Test Time: 02:46:55 Pm Technician: DAVID MEASUREMENT RESULTS: Intervals: Rate: 85 NH: 150 QRSD: 86 QT: 382 QTc: 454 [place]: P: 27 NH: 150 QRS: 59 T: 66 INTERPRETIVE STATEMENTS: Normal sinus rhythm Septal infarct, age undetermined Abnormal ECG Compared to ECG 12/27/2017 19:41:08 Myocardial infarct finding now present Electronically Signed On 05-25-18 05:31:03 CDT by Eulogio eBrman
[2018-05-25] MEDS: ACETAMINOPHEN 500 MG TAB PO PRN ×3 (06:21→18:56)
--- NOTE | 2018-05-25 08:23 | RAD REPORT ---
EXAM DESCRIPTION: RAD - Chest Single View - 05/25/2018 4:24 am CLINICAL HISTORY: Fall, chest pain COMPARISON: December 2017 TECHNIQUE: AP portable chest image was obtained 0336 hours . FINDINGS: No pulmonary contusion or other focal lung parenchymal process. Lung markings are similar to comparison. No failure or volume overload. Heart and vasculature are normal. No measurable pleural effusion and no pneumothorax. No acute bony abnormality seen. No acute aortic findings suspected. IMPRESSION: No acute cardiopulmonary process. No significant change from comparison.
--- NOTE | 2018-05-25 08:25 | RAD REPORT ---
EXAM DESCRIPTION: RAD - Hand Left 3 View - 05/25/2018 4:24 am CLINICAL HISTORY: Fall, left hand pain COMPARISON: None. FINDINGS: No fracture, dislocation or periosteal reaction noted. No foreign body or other soft tissu e abnormality. Mild IP joint degenerative change. Mild degenerative change present at the first MCP j oint. Clinical history indicates fifth digit deformity. No acute finding identifiable. IMPRESSION: No fracture or other significant left hand finding. Degenerative changes are present.
--- NOTE | 2018-05-25 08:53 | P.HP ---
Certification for Inpatient Patient admitted to: Inpatient With expected LOS: >2 Midnights Practitioner: I am a practitioner with admitting privileges, knowledge of patient current condition, hospital course, and medical plan of care. Services: Services provided to patient in accordance with Admission requirements found in Title 42 Section 412.3 of the Code of Federal Regulations Patient History Date of Service: 05/25/18 Reason for admission: DIARREHA AND SYNCOPE History of Present Illness: MR. WATKINS HAS ONE NIGHT OF PROFUSE DIARRHEA AND HAD SYNCOPE AFTER THAT WHILE ON COMMODE, HIT HIS HEAD AND HAS 10 TOMY. HE IS STILL VERY WEAK, GENERALLY. Allergies No Known Allergies Allergy (Verified 05/25/18 05:59) Home Medications: Multivitamin [Tab-A-Jeffry] 1 tab PO DAILY 05/25/18 - Past Medical/Surgical History Has patient received pneumonia vaccine in the past: No Diabetic: No -: arthritis -: intestinal kink -: Shoulder Sx -: appendectomy - Family History Father -: Diabetes Mother Notes: Intestinal Cancer Sister Notes: HTN - Social History Smoking Status: Never smoker Alcohol use: No CD- Drugs: No Caffeine use: Yes Review of Systems 10-point ROS is otherwise unremarkable General: Weakness Physical Examination - Vital Signs Temperature: 99.9 F Blood Pressure: 123/73 Pulse: 89 Respirations: 19 Pulse Ox (%): 94 - Physical Exam General: Alert, Mild distress HEENT: Atraumatic, PERRLA, Mucous membr. moist/pink, EOMI, Sclerae nonicteric Neck: Supple, 2+ carotid pulse no bruit, No LAD, Without JVD or thyroid abnormality Respiratory: Clear to auscultation bilaterally, Normal air movement Cardiovascular: Regular rate/rhythm, Normal S1 S2 Gastrointestinal: Normal bowel sounds, No tenderness Musculoskeletal: No tenderness Integumentary: No rashes Neurological: Normal gait, Normal speech, Normal strength at 5/5 x4 extr, Normal tone, Normal affect Lymphatics: No axilla or inguinal lymphadenopathy - Studies Laboratory Data (last 24 hrs) 05/25/18 02:54: PT 11.3, INR 0.96 05/25/18 02:54: WBC 15.0 H, Hgb 15.9, Hct 47.3, Plt Count 350 05/25/18 02:54: Sodium 140, Potassium 3.9, BUN 30 H, Creatinine 1.78 H, Glucose 149 H, Magnesium 2.4, Total Bilirubin 0.4, AST 13 L, ALT 27, Alkaline Phosphatase 72 Assessment and Plan - Problems (Diagnosis) (1) Orthostatic hypotension Current Visit: Yes Status: Acute Plan: MR. WATKINS HAD DIARRHEA OVERNIGHT AND PASSED OUT. HE IS STABLE FOR NOW. RESUME IV FLUIDS, BUN AND CREATININE ARE MILD HIGH. HE DOES NOT HAVE ANY OTHER SYMPTOMS. I WILL REMOVE TOMY IN 10 DAYS. - Advance Directives Does patient have a Living Will: Yes Does patient have a Durable POA for Healthcare: Yes
[2018-05-25] MEDS: NA CHLORIDE 0.9% 1,000 ML IV SCH ×2 (12:51→18:07)
[2018-05-26 03:26] LABS: Urine Appearance CLEAR; Urine Bilirubin NEGATIVE (NEG); Urine Blood NEGATIVE (NEG); Urine Color YELLOW; Urine Glucose NEGATIVE (NEG); Urine Protein NEGATIVE (NEG); Urine Specific Gravity >=1.030 (1.005-1.030)
[2018-05-26 03:28] LABS: Urine Microscopic Reflex NO UMIC
[2018-05-26] MEDS: NA CHLORIDE 0.9% 1,000 ML IV SCH (04:50)
--- NOTE | 2018-05-26 10:58 | RAD REPORT ---
EXAM DESCRIPTION: CT - Head C Spine Mpr Wo Con - 05/25/2018 3:52 am CLINICAL HISTORY: The patient is 62 years old and is Male; SMASH INJURY TECHNIQUE: Axial computed tomography images of the head/brain and cervical spine without intravenous contrast. Sagittal and coronal reformatted images were created and reviewed. This CT exam was pe rformed using one or more of the following dose reduction techniques: automated exposure control, a djustment of the mA and/or kV according to patient size, and/or use of iterative reconstruction techn ique. COMPARISON: No relevant prior studies available. FINDINGS: Brain: Unremarkable. No hemorrhage. No significant white matter disease. No edema. Ventricles: Unremarkable. No ventriculomegaly. Skull: No acute fracture. Sinuses: Unremarkable as visualized. No acute sinusitis. Mastoid air cells: Unremarkable as visualized. No mastoid effusion. Vertebrae: The vertebral body heights and alignment are maintained. No acute fracture. Discs/spinal canal/neural foramina: Intervertebral disc space narrowing with osteophyte formatio n is present at C5-C6. Mild facet arthropathy at several levels is noted. There is no significant can al narrowing. Soft tissues: The soft tissues are normal. Lung apices: The lung apices are clear. IMPRESSION: 1. No acute intracranial findings. 2. Mild spondylosis of the cervical spine. Electronically signed by: Jessica Blake MD 05/25/2018 3:47 AM CDT Due to temporary technical issues with the PACS/Fluency reporting system, reports are being signed by the in house radiologist as a courtesy to ensure prompt reporting. The interpreting radiologist is f ully responsible for the content of the report.
--- NOTE | 2018-05-26 10:59 | RAD REPORT ---
EXAM DESCRIPTION: CT - Stone Protocol - 05/25/2018 4:01 am CLINICAL HISTORY: The patient is 62 years old and is Male; ABD PAIN TECHNIQUE: Axial computed tomography images of the abdomen and pelvis without intravenous contrast. Sagittal and coronal reformatted images were created and reviewed. This CT exam was performed usi ng one or more of the following dose reduction techniques: automated exposure control, adjustment o f the mA and/or kV according to patient size, and/or use of iterative reconstruction technique. COMPARISON: No relevant prior studies available. FINDINGS: Lung bases: Minimal dependent densities in the lung bases are present. ABDOMEN: Liver: Homogeneous without focal mass. Gallbladder and bile ducts: The gallbladder is physiologically distended. No calcified gallstone s or ductal dilatation is noted. Pancreas: Unremarkable. No ductal dilation. Spleen: Several calcified splenic granuloma are present. Adrenals: Unremarkable. No mass. Kidneys and ureters: No obstructing stones. No hydronephrosis. Stomach and bowel: The stomach is well distended with food contents and fluid. The majority of t he small bowel is fluid-filled. Stool is present throughout the colon. There is no mucosal thickening or evidence of bowel obstruction. PELVIS: Appendix: Postsurgical change consistent with appendectomy is noted. Bladder: Unremarkable. No stones. Reproductive: Unremarkable as visualized. ABDOMEN and PELVIS: Intraperitoneal space: Unremarkable. No free air. No significant fluid collection. Bones/joints: No acute fracture. Soft tissues: There are small bilateral fat containing inguinal hernias. Vasculature: Unremarkable. No abdominal aortic aneurysm. Lymph nodes: Unremarkable. No enlarged lymph nodes. IMPRESSION: Nonspecific fluid distention of the small bowel which may be secondary to mild enteritis . No bowel obstruction. Electronically signed by: Jessica Blake MD 05/25/2018 3:50 AM CDT Due to temporary technical issues with the PACS/Fluency reporting system, reports are being signed by the in house radiologist as a courtesy to ensure prompt reporting. The interpreting radiologist is f víctorly responsible for the content of the report.
--- NOTE | 2018-05-26 17:25 | P.DS ---
Admission Date: 05/25/18 Discharge Date: 05/26/18 Disposition: ROUTINE DISCHARGE Discharge Condition: FAIR Reason for Admission: DIARREHA AND SYNCOPE - Problems (1) Orthostatic hypotension Status: Acute Brief History of Present Illness: MR. WATKINS HAS ONE NIGHT OF PROFUSE DIARRHEA AND HAD SYNCOPE AFTER THAT WHILE ON COMMODE, HIT HIS HEAD AND HAS 10 TOMY. HE IS STILL VERY WEAK, GENERALLY. HIS GE HAS RESOLVED. HE IS STABLE TO GO HOME. FU IN OFFICE IN 10 DAYS. Vital Signs/Physical Exam: Temp Pulse Resp BP Pulse Ox 98.1 F 63 18 124/60 96 05/26/18 08:00 05/26/18 08:00 05/26/18 08:00 05/26/18 08:00 05/26/18 08:00 Laboratory Data at Discharge: WBC 15.0 K/uL (4.3-10.9) H 05/25/18 02:54 Hgb 15.9 g/dL (13.6-17.9) 05/25/18 02:54 Hct 47.3 % (39.6-49.0) 05/25/18 02:54 Plt Count 350 K/uL (152-406) 05/25/18 02:54 PT 11.3 SECONDS (9.5-12.5) 05/25/18 02:54 INR 0.96 05/25/18 02:54 Sodium 140 mmol/L (136-145) 05/25/18 02:54 Potassium 3.9 mmol/L (3.5-5.1) 05/25/18 02:54 BUN 30 mg/dL (7-18) H 05/25/18 02:54 Creatinine 1.78 mg/dL (0.55-1.3) H 05/25/18 02:54 Glucose 149 mg/dL (74-106) H 05/25/18 02:54 Magnesium 2.4 mg/dL (1.8-2.4) 05/25/18 02:54 Total Bilirubin 0.4 mg/dL (0.2-1.0) 05/25/18 02:54 AST 13 U/L (15-37) L 05/25/18 02:54 ALT 27 U/L (12-78) 05/25/18 02:54 Alkaline Phosphatase 72 U/L (45-117) 05/25/18 02:54 Home Medications: Multivitamin [Tab-A-Jeffry] 1 tab PO DAILY 05/25/18 Patient Discharge Instructions: take probiotic like Nexabiotic one daily. from our office. Dr. Bowles
== END 2018-05-26 13:57 | disposition home or self-care (01) ==
LOC: ER 02:41 → ERHOLD 04:36 → 4TH 05:18
PROVIDERS: ADMIT Internal Medicine; ATTEND Internal Medicine
PROC: 0JQ00ZZ Repair Scalp Subcutaneous Tissue and Fascia, Open Approach (ICD-10-PCS; principal; 2018-05-25)
DX: I95.1 Orthostatic hypotension (principal); R19.7 Diarrhea, unspecified; S01.01XA Laceration without foreign body of scalp, initial encounter; S63.287A Dislocation of proximal interphalangeal joint of left little finger, initial encounter; W18.30XA Fall on same level, unspecified, initial encounter; Y92.002 Bathroom of unspecified non-institutional (private) residence as the place of occurrence of the external cause; Z23 Encounter for immunization
CPT/HCPCS: 36415; 70450; 71045; 72125; 74176; 76377; 80048; 80076; 81003; 82962; 83735; 83880; 84484; 85025; 85610; 87077; 87086; 87088; 87186; 90714; 93005; 94760; 96361; 96374; 99285; G0378; J2001; J2405; J7030

== ENCOUNTER 2018-06-11 17:06 | Emergency (ER) | payer BC ==
--- OUTSIDE RECORDS SUMMARY | 2018-06-11 17:08 | XMS REPORT | Clinical Summary ---
:1955 [facility] [address] [place] [address] Care Team Providers Name Role Phone Jazz [...] INFLUENZA VACCINE 10/11/2017 Results Not on fileafter 06/10/2017 Insurance Payer Benefit Plan / Group Subscriber ID Type Phone Address BCBS BCBS CHOICE PPO/[employer]ER[employer] EMPL PPO xxxxxxxxxxxx PPO (Home) [place] [address] Advance Directives Patient has advance care planning documents on file. For more information, please contact:[address] [address]
[2018-06-11] MEDS ORDERED: NA CHLORIDE 0.9% 1,000 ML ONE (18:04)
--- NOTE | 2018-06-11 18:12 | RAD REPORT ---
EXAM DESCRIPTION: RAD - Chest Single View - 06/11/2018 6:02 pm CLINICAL HISTORY: COUGH Chest pain. COMPARISON: Chest Single View dated 05/25/2018; Chest Single View dated 01/02/2018; Chest Single View dated 12/30/2017; Abdomen 1 View (KUB) dated 12/30/2017 FINDINGS: Portable technique limits examination quality. The lungs are grossly clear. The heart is upper limit of normal in size. No displaced fractures. IMPRESSION: No acute intrathoracic process suspected.
[2018-06-11 18:15] LABS: Absolute Lymphocytes (CBC) 1.8 K/uL (0.7-4.9); Absolute Monocytes 0.5 K/uL (0.1-1.3); Absolute Neutrophil 3.6 K/uL (1.8-8.0); Basophils % 1.1 % (0-1.3); Hematocrit 37.8 % (39.6-49.0); Lymphocytes % 28.4 % (15.3-44.8); MPV 7.9 fL (7.6-11.3); Monocytes % 7.7 % (3.3-12.3); RBC Red Blood Cell Count 4.14 M/uL (4.33-5.43)
[2018-06-11 18:29] LABS: Protime INR 0.93
[2018-06-11 18:34] LABS: ALT/SGPT 21 U/L (12-78); AST/SGOT 11 U/L (15-37); Albumin 3.7 g/dL (3.4-5.0); Alkaline Phosphatase 61 U/L (45-117); BUN Blood Urea Nitrogen 22 mg/dL (7-18); Bicarbonate 29 mmol/L (21-32); Bilirubin Direct < 0.1 mg/dL (0-0.2); Bilirubin Total 0.3 mg/dL (0.2-1.0); Glucose Level 123 mg/dL (74-106); Lipase 154 U/L (73-393); Magnesium 2.1 mg/dL (1.8-2.4); NT PRO-BNP 43 pg/mL (<125); Potassium 3.8 mmol/L (3.5-5.1); Protein, Total 7.7 g/dL (6.4-8.2); Sodium Level 139 mmol/L (136-145); Troponin (Emerg Dept Use Only) < 0.02 ng/mL (0.0-0.045)
--- NOTE | 2018-06-11 19:07 | ER ---
Nurse's Notes [facility] Name: Sammy Bennett Jr Age: 62 yrs Sex: Male : 1955 Arrival Date: 06/11/2018 Time: 17:07 Bed 3 Private MD: Hossein Bowles V Diagnosis: Weakness Presentation: 06/11 17:15 Presenting complaint: Patient states: sudden onset of not feeling well, shakiness, ss chills that began approximately 45 minutes ago. Denies pain. Transition of care: patient was not received from another setting of care. Onset of symptoms was June 11, 2018. Risk Assessment: Do you want to hurt yourself or someone else? Patient reports no desire to harm self or others. Initial Sepsis Screen: Does the patient meet any 2 criteria? No. Patient's initial sepsis screen is negative. Does the patient have a suspected source of infection? No. Patient's initial sepsis screen is negative. Care prior to arrival: None. 17:15 Method Of Arrival: Ambulatory ss 17:15 Acuity: MILVIA 2 ss Historical: - Allergies: 17:16 No Known Allergies; ss - Home Meds: 17:16 None [Active]; ss - PMHx: 17:16 Arthritis; ss - PSHx: 17:16 Appendectomy; ss - Immunization history:: Adult Immunizations up to date. - Social history:: Smoking status: Patient/guardian denies using tobacco. - Ebola Screening: : Patient denies exposure to infectious person Patient denies travel to an Ebola-affected area in the 21 days before illness onset. - Family history:: not pertinent. Screenin:00 Abuse screen: Denies threats or abuse. Denies injuries from another. Nutritional hb screening: No deficits noted. Tuberculosis screening: No symptoms or risk factors identified. Fall Risk None identified. Assessment: 17:30 General: Appears in no apparent distress. Behavior is calm, cooperative. Pain: Denies hb pain. Neuro: Level of Consciousness is awake, alert, obeys commands, Oriented to person, place, time, situation. Cardiovascular: Heart tones S1 S2 present Capillary refill < 3 seconds Patient's skin is warm and dry. Respiratory: Airway is patent Respiratory effort is even, unlabored, Respiratory pattern is regular, symmetrical, Breath sounds are clear bilaterally. GI: No signs and/or symptoms were reported involving the gastrointestinal system. : No signs and/or symptoms were reported regarding the genitourinary system. EENT: No signs and/or symptoms were reported regarding the EENT system. Derm: Skin is intact, is healthy with good turgor. Musculoskeletal: No signs and/or symptoms reported regarding the musculoskeletal system. 18:16 Reassessment: Patient appears in no apparent distress at this time. No changes from hb previously documented assessment. Patient and/or family updated on plan of care and expected duration. Pain level reassessed. Patient is alert, oriented x 3, equal unlabored respirations, skin warm/dry/pink. Vital Signs: 17:14 BP 140 / 74; Pulse 88; Resp 17; Pulse Ox 100% on R/A; Weight 102.06 kg; Height 6 ft. 4 ss in. (193.04 cm); Pain 0/10; 17:32 Temp 97.8(TE); ss 18:17 BP 125 / 82; Pulse 77; Resp 20; Pulse Ox 100% on R/A; hb 19:19 BP 124 / 77 Supine; Pulse 71; ao 19:20 BP 131 / 82 Sitting; Pulse 76; ao 19:21 BP 130 / 82 Standing; Pulse 76; ao 17:14 Body Mass Index 27.39 (102.06 kg, 193.04 cm) ss ED Course: 17:07 Patient arrived in ED. mr 17:08 Hossein Bowles MD is Private Physician. mr 17:14 Arm band placed on right wrist. ss 17:15 Triage completed. ss 17:19 Luke Rob MD is Attending Physician. ayritza 17:47 Hiwot Hendricks, SURI is Primary Nurse. hb 17:49 EKG done, by cable splicing technician. reviewed by Luke Rob MD. sm3 17:50 Inserted saline lock: 20 gauge in right hand, using aseptic technique. ,using aseptic hb technique. by KRISHNA [employer]. 18:00 Patient has correct armband on for positive identification. Placed in gown. Bed in low hb position. Call light in reach. Side rails up X 1. 18:02 X-ray completed. Portable x-ray completed in exam room. Patient tolerated procedure az well. 18:02 XRAY Chest (1 view) In Process Unspecified. EDMS 19:06 Hossein Bowles MD is Referral Physician. yaritza 19:56 No provider procedures requiring assistance completed. IV discontinued, intact, ao bleeding controlled, No redness/swelling at site. Pressure dressing applied. Administered Medications: 17:59 Drug: NS 0.9% 1000 ml Route: IV; Rate: 1 bolus; Site: right hand; hb Point of Care Testing: Blood Glucose: 17:16 Blood Glucose: 119 mg/dL; Ranges: Outcome: 19:06 Discharge ordered by . [facility] 19:56 Discharged to home ambulatory. ao 19:56 Condition: stable 19:56 Discharge instructions given to patient, significant other, Instructed on discharge instructions, follow up and referral plans. Demonstrated understanding of instructions, follow-up care, medications. 19:57 Patient left the ED. ao Signatures: Dispatcher [employer] EDMS Luke Rob MD MD cha Rivera, Seble mr Lenore Rosen, RN RN Marcio Denney RN RN ao Baxter, Heather, RN RN Brook Thakkar [facility] Kassidy Santiago
--- NOTE | 2018-06-11 19:08 | EDPHYS ---
Physician Documentation [facility] Name: Sammy Bennett Jr Age: 62 yrs Sex: Male : 1955 Arrival Date: 06/11/2018 Time: 17:07 Bed 3 Private MD: Hossein Bowles V ED Physician Luke Rob HPI: 06/11 17:32 This 62 yrs old Male presents to ER via Ambulatory with complaints of Doesn't yaritza Feel Right, Shaking. 17:32 weakness and shaky. Onset: The symptoms/episode began/occurred just prior to arrival. yaritza Severity of symptoms: At their worst the symptoms were mild moderate in the emergency department the symptoms have improved mildly. The patient has not experienced similar symptoms in the past. Historical: - Allergies: 17:16 No Known Allergies; ss - Home Meds: 17:16 None [Active]; ss - PMHx: 17:16 Arthritis; ss - PSHx: 17:16 Appendectomy; ss - Immunization history:: Adult Immunizations up to date. - Social history:: Smoking status: Patient/guardian denies using tobacco. - Ebola Screening: : Patient denies exposure to infectious person Patient denies travel to an Ebola-affected area in the 21 days before illness onset. - Family history:: not pertinent. ROS: 17:32 Constitutional: Negative for fever, chills, and weight loss, Eyes: Negative for injury, yaritza pain, redness, and discharge, ENT: Negative for injury, pain, and discharge, Neck: Negative for injury, pain, and swelling, Cardiovascular: Negative for chest pain, palpitations, and edema, Respiratory: Negative for shortness of breath, cough, wheezing, and pleuritic chest pain, Abdomen/GI: Negative for abdominal pain, nausea, vomiting, diarrhea, and constipation, Back: Negative for injury and pain, : Negative for injury, bleeding, discharge, and swelling, MS/Extremity: Negative for injury and deformity, Skin: Negative for injury, rash, and discoloration, Psych: Negative for depression, anxiety, suicide ideation, homicidal ideation, and hallucinations, Allergy/Immunology: Negative for hives, rash, and allergies, Endocrine: Negative for neck swelling, polydipsia, polyuria, polyphagia, and marked weight changes, Hematologic/Lymphatic: Negative for swollen nodes, abnormal bleeding, and unusual bruising. 17:32 Neuro: Positive for weakness. Exam: 17:32 Constitutional: This is a well developed, well nourished patient who is awake, alert, yaritza and in no acute distress. Head/Face: Normocephalic, atraumatic. Eyes: Pupils equal round and reactive to light, extra-ocular motions intact. Lids and lashes normal. Conjunctiva and sclera are non-icteric and not injected. Cornea within normal limits. Periorbital areas with no swelling, redness, or edema. ENT: Nares patent. No nasal discharge, no septal abnormalities noted. Tympanic membranes are normal and external auditory canals are clear. Oropharynx with no redness, swelling, or masses, exudates, or evidence of obstruction, uvula midline. Mucous membranes moist. Neck: Trachea midline, no thyromegaly or masses palpated, and no cervical lymphadenopathy. Supple, full range of motion without nuchal rigidity, or vertebral point tenderness. No Meningismus. Chest/axilla: Normal chest wall appearance and motion. Nontender with no deformity. No lesions are appreciated. Cardiovascular: Regular rate and rhythm with a normal S1 and S2. No gallops, murmurs, or rubs. Normal PMI, no JVD. No pulse deficits. Respiratory: Lungs have equal breath sounds bilaterally, clear to auscultation and percussion. No rales, rhonchi or wheezes noted. No increased work of breathing, no retractions or nasal flaring. Abdomen/GI: Soft, non-tender, with normal bowel sounds. No distension or tympany. No guarding or rebound. No evidence of tenderness throughout. Back: No spinal tenderness. No costovertebral tenderness. Full range of motion. Male : Normal genitalia with no discharge or lesions. Skin: Warm, dry with normal turgor. Normal color with no rashes, no lesions, and no evidence of cellulitis. MS/ Extremity: Pulses equal, no cyanosis. Neurovascular intact. Full, normal range of motion. Neuro: Awake and alert, GCS 15, oriented to person, place, time, and situation. Cranial nerves II-XII grossly intact. Motor strength 5/5 in all extremities. Sensory grossly intact. Cerebellar exam normal. Normal gait. Psych: Awake, alert, with orientation to person, place and time. Behavior, mood, and affect are within normal limits. 17:41 Musculoskeletal/extremity: DVT Exam: No signs of deep vein thrombosis. no pain, no yaritza swelling, no tenderness, negative Homans' sign noted on exam, no appreciated bluish discoloration, no erythema, no increased warmth. Vital Signs: 17:14 BP 140 / 74; Pulse 88; Resp 17; Pulse Ox 100% on R/A; Weight 102.06 kg; Height 6 ft. 4 ss in. (193.04 cm); Pain 0/10; 17:32 Temp 97.8(TE); ss 18:17 BP 125 / 82; Pulse 77; Resp 20; Pulse Ox 100% on R/A; hb 19:19 BP 124 / 77 Supine; Pulse 71; ao 19:20 BP 131 / 82 Sitting; Pulse 76; ao 19:21 BP 130 / 82 Standing; Pulse 76; ao 17:14 Body Mass Index 27.39 (102.06 kg, 193.04 cm) ss MDM: 17:19 Patient medically screened. [facility] 17:34 Data reviewed: vital signs, nurses notes, lab test result(s), EKG, radiologic studies, yaritza plain films. 06/11 17:29 Order name: Basic Metabolic Panel; Complete Time: 18:50 [facility] 06/11 17:29 Order name: CBC with Diff; Complete Time: 18:50 [facility] 06/11 17:29 Order name: LFT's; Complete Time: 18:50 [facility] 06/11 17:29 Order name: Magnesium; Complete Time: 18:50 [facility] 06/11 17:29 Order name: NT PRO-BNP; Complete Time: 18:50 [facility] 06/11 17:29 Order name: PT-INR; Complete Time: 18:50 [facility] 06/11 17:29 Order name: Troponin (emerg Dept Use Only); Complete Time: 18:50 [facility] 06/11 17:29 Order name: XRAY Chest (1 view); Complete Time: 18:50 [facility] 06/11 17:29 Order name: EKG; Complete Time: 17:30 [facility] 06/11 17:29 Order name: Cardiac monitoring; Complete Time: 17:47 [facility] 06/11 17:29 Order name: Lipase; Complete Time: 18:50 [facility] 06/11 17:29 Order name: Procalcitonin; Complete Time: 19:05 [facility] 06/11 19:11 Order name: Glucose, Ancillary Testing EDMS 06/11 17:29 Order name: EKG - Nurse/Tech; Complete Time: 17:47 [facility] 06/11 17:29 Order name: IV Saline Lock; Complete Time: 17:47 [facility] 06/11 17:29 Order name: Labs collected and sent; Complete Time: 17:47 [facility] 06/11 17:29 Order name: O2 Per Protocol; Complete Time: 17:47 [facility] 06/11 17:29 Order name: O2 Sat Monitoring; Complete Time: 17:47 [facility] 06/11 19:06 Order name: Orthostatics; Complete Time: 19:22 [facility] Administered Medications: 17:59 Drug: NS 0.9% 1000 ml Route: IV; Rate: 1 bolus; Site: right hand; hb Point of Care Testing: Blood Glucose: 17:16 Blood Glucose: 119 mg/dL; Ranges: Critical Glucose Levels:Adult <50 mg/dl or >400 mg/dl <40 mg/dl or >180 mg/dl Disposition: 06/11/18 19:06 Discharged to Home. Impression: Weakness. - Condition is Stable. - Discharge Instructions: Weakness, Fatigue, Weakness, [id number]. - Medication Reconciliation Form, Thank You Letter, Antibiotic Education, Prescription Opioid Use form. - Follow up: Hossein Bowles; When: 1 - 2 days; Reason: Recheck today's complaints, Continuance of care, Re-evaluation by your physician. - Problem is new. - Symptoms have improved. Signatures: Dispatcher [employer] [facility] Luke Rob MD MD cha Smirch, Shelby, RN RN Marcio Lujan RN RN ao Baxter, Heather, RN RN Corrections: (The following items were deleted from the chart) 19:57 19:06 06/11/2018 19:06 Discharged to Home. Impression: Weakness. Condition is Stable. ao Discharge Instructions: Weakness, Fatigue, Weakness, [id number]. Forms are Medication Reconciliation Form, Thank You Letter, Antibiotic Education, Prescription Opioid Use. Follow up: Hossein Bowles; When: 1 - 2 days; Reason: Recheck today's complaints, Continuance of care, Re-evaluation by your physician. Problem is new. Symptoms have improved. yaritza
== END 2018-06-11 19:57 | disposition home or self-care (01) ==
LOC: ER 17:06
DX: R53.1 Weakness (principal)
CPT/HCPCS: 36415; 71045; 80048; 80076; 82962; 83690; 83735; 83880; 84145; 84484; 85025; 85610; 93005; 99284; J7030

== ENCOUNTER 2020-04-19 23:26 | Inpatient (IN) | payer BC ==
--- OUTSIDE RECORDS SUMMARY | 2020-04-20 01:18 | XMS REPORT | Clinical Summary ---
:1955 Author Organization [facility] [employer] Address [address] [place] [id number] Care Team Providers Name Role Phone Jazz Brice MD Primary Care Provider Allergies No Known Active Allergies Medications No known medications Active Problems Problem Noted Date Dizziness 07/08/2019 Encounters Date Type Specialty Care Team Description 04/18/2020 Emergency Emergency Medicine Boyareddigari, Fever i n other diseases (Primary Dx); Geoff Cordova MD Acute recurr ent maxillary sinusitis 12/17/2019 Office Visit Cardiology Gonzalo Fleming MD Dizzines s (Primary Dx) 12/17/2019 Travel 12/13/2019 Office Visit Internal Medicine Jazz Brice MD Dizzin ess (Primary Dx); H/O head injury 12/13/2019 Travel 12/11/2019 Travel 12/11/2019 Nurse Triage Access Marina Andrea RN 07/10/2019 Telemedicine Cardiology Gonzalo Fleming MD Dizzines s (Primary Dx) 07/10/2019 Travel 07/03/2019 Travel 05/30/2019 Travel 05/30/2019 Telephone Cardiology Laureano Cobos MA Appointment 05/22/2019 Travel after 04/20/2019 Immunizations Name Administration Dates Next Due FLUCELVAX QUAD PF 12/13/2019 Surgical History Surgery Date Site/Laterality Comments SHOULDER SURGERY APPENDECTOMY COLONOSCOPY 03/13/2015 Medical History Medical History Date Comments No known health problems Family History Medical History Relation Name Comments Diabetes Father Coronary artery disease Maternal Grandfather age 75+ Breast cancer Mother Relation Name Status Comments Father Maternal Grandfather Mother Social History Tobacco Use Types Packs/Day Years Used Date Never Smoker Smokeless Tobacco: Never Used Alcohol Use Drinks/Week oz/Week Comments Yes Sex Assigned at Date Recorded Not on file Job Start Date Occupation Industry Not on file Not on file Not on file Last Filed Vital Signs Vital Sign Reading Time Taken Comments Blood Pressure 123/75 04/18/2020 8:21 AM [employer] Pulse 70 04/18/2020 8:21 AM [employer] Temperature 37 C (98.6 F) 04/18/2020 6:10 AM [employer] Respiratory Rate 18 04/18/2020 6:10 AM [employer] Oxygen Saturation 96% 04/18/2020 8:21 AM [employer] Inhaled Oxygen Concentration - - Weight 99.3 kg (219 lb) 12/17/2019 1:09 PM CDT Height 193 cm (6' 4") 12/17/2019 1:09 PM CDT Body Mass Index 26.66 12/17/2019 1:09 PM CDT Plan of Treatment Health Maintenance Due Date Last Done Comments COVID-19 VACCINE (1 of 2) 1973 HEPATITIS C SCREENING 11/04/1975 SHINGLES VACCINES (#1) 11/04/2007 COLONOSCOPY SCREENING 03/13/2025 03/13/2015 INFLUENZA VACCINE Completed 12/13/2019 Procedures Procedure Name Priority Date/Time Associated Comments Diagnosis ESTIMATED GFR STAT 04/18/2020 6:40 Results fo r this AM [employer] procedure are i n the results section. COMPREHENSIVE STAT 04/18/2020 6:40 Results fo r this METABOLIC PANEL AM [employer] procedure ar e in the results section. HC COMPLETE BLD COUNT STAT 04/18/2020 6:40 Re sults for this W/AUTO DIFF AM [employer] procedure are i n the results section. VITAMIN B12 LEVEL Routine 12/13/2019 2:19 Dizziness Result s for this PM CDT procedure are i n the results section. URINALYSIS, COMPLETE, Routine 12/13/2019 2:19 Dizziness Re sults for this WITH REFLEX TO CULTURE PM CDT proce dure are in the results section. THYROID STIMULATING Routine 12/13/2019 2:19 Dizziness Resu lts for this HORMONE PM CDT procedure are i n the results section. T4, FREE Routine 12/13/2019 2:19 Dizziness Results for this PM CDT procedure are i n the results section. COMPREHENSIVE Routine 12/13/2019 2:19 Dizziness Results fo r this METABOLIC PANEL PM CDT procedure ar e in the results section. TOTAL IRON BINDING Routine 12/13/2019 2:19 Dizziness Resul ts for this CAPACITY PM CDT procedure are i n the results section. FERRITIN LEVEL Routine 12/13/2019 2:19 Dizziness Results f or this PM CDT procedure are i n the results section. CBC WITH PLATELET AND Routine 12/13/2019 2:19 Dizziness Re sults for this DIFFERENTIAL PM CDT procedure are i n the results section. ECG 12-LEAD Routine 12/13/2019 2:14 Dizziness Results for this PM CDT procedure are i n the results section. after 04/20/2019 Results Estimated GFR (04/18/2020 6:40 AM [employer]) Pathologist [facility] Estimated GFR 63 mL/min/1.73 [facility] Comment: m2 HOSPITAL Catergory Units Interpretation G1 >=90 Normal or high G2 60-89 Mildly decreased G3a 45-59 Mildly to moderately decreas ed G3b 30-44 Moderately to severely decre ased G4 15-29 Severely decreased G5 <15 Kidney failure The eGFR was calculated using the Chronic Kidney Disea se Epidemiology Collaboration (CKD-EPI) equation. Interpretation is based on recommendations of the National Kidney Foundation-Kidney Disease Outcomes Paul lity Initiative (NKF-KDOQI) published in 2014. Specimen Performing Organization Address City/State/[facility] Code Phon e Number [facility] DEPARTMENT OF PATHOLOGY AND [address] [place], [place] [address] GENOMIC MEDICINE [facility] [address] [place] [phone] CBC with platelet and differential (04/18/2020 6:40 AM [employer])Only the most recent of2 resultswithin the time period is included. [facility] WBC 3.90 (L) 4.50 - 11.00 [facility] k/uL [facility] RBC 4.58 4.40 - 6.00 [facility] HGB 13.9 (L) 14.0 - 18.0 [facility] g/dL [facility] HCT 42.2 41.0 - 51.0 % [facility] MCV 92.1 82.0 - 100.0 [facility] MCH 30.3 27.0 - 34.0 pg [facility] MCHC 32.9 31.0 - 37.0 [facility] RDW - SD 45.7 37.0 - 55.0 fL [facility] MPV 10.0 8.8 - 13.2 fL [facility] Platelet count 205 150 - 400 k/uL [facility] Nucleated RBC 0.00 /100 WBC [facility] Neutrophils 67.7 39.0 - 69.0 % [facility] Lymphocytes 24.1 (L) 25.0 - 45.0 % [facility] Monocytes 6.9 0.0 - 10.0 % [facility] Eosinophils 0.8 0.0 - 5.0 % [facility] Basophils 0.5 0.0 - 1.0 % [facility] Immature granulocytes 0.0Comment: 0.0 - 1.0 % [facility] "Immature [facility] granulocytes" (promyelocytes , myelocytes, metamyelocytes ) Specimen Blood Performing Organization Address City/State/ZIP Code Phon e Number [facility] DEPARTMENT OF PATHOLOGY AND [address] [place], [place] [address] GENOMIC MEDICINE [facility] [address] [place] [address] Comprehensive metabolic panel (04/18/2020 6:40 AM [employer])Only the most recent of2 resultswithin the time period is included. Sodium 136 135 - 148 [facility] mEq/L [facility] Potassium 4.0 3.5 - 5.0 [facility] mEq/L [facility] Chloride 103 98 - 112 [facility] mEq/L [facility] CO2 25 24 - 31 mEq/L [facility] Anion gap 8@ANIO 7 - 15 mEq/L [facility] BUN 20 8 - 23 mg/dL [facility] Creatinine 1.22 (H) 0.70 - 1.20 [facility] mg/dL [facility] Glucose 95 65 - 99 mg/dL [facility] Calcium 9.4 8.8 - 10.2 [facility] mg/dL [facility] Protein 7.8 6.3 - 8.3 [facility] Comment: g/dL HOSPITAL - 4.6-7.0 g/dL 1 week 4.4-7.6 g/dL 7 months-1year 5.1-7.3 g/dL 1-2 years 5.6-7.5 g/dL >3 years 6.0-8.0 g/dL 18-150 6.3-8.3 g/dL Albumin 3.3 (L) 3.5 - 5.0 [facility] g/dL [facility] A/G ratio 0.7 0.7 - 3.8 [facility] Alkaline phosphatase 55 40 - 129 U/L [facility] AST 21 10 - 50 U/L [facility] ALT 29 5 - 50 U/L [facility] Total bilirubin 0.3 0.0 - 1.2 [facility] mg/dL HOSPITAL Specimen Blood Performing Organization Address City/[facility] Phon e Number [facility] DEPARTMENT OF PATHOLOGY AND [address] [place], [place] [address] GENOMIC MEDICINE [facility] [address] [place] [address] URINALYSIS, COMPLETE, WITH REFLEX TO CULTURE (12/13/2019 2:19 PM CDT) Color, UA YELLOW YELLOW [facility] [place] Appearance CLOUDY (A) CLEAR [facility] [place] Specific gravity, 1.024 1.001 - 1.035 [facility] urine [place] pH, urine 7.0 5.0 - 8.0 [facility] [place] Glucose, urine NEGATIVE NEGATIVE [facility] [place] Bilirubin, UA NEGATIVE NEGATIVE [facility] [place] Ketones, UA NEGATIVE NEGATIVE [facility] [place] Occult blood, NEGATIVE NEGATIVE [facility] urine [place] Protein, UA NEGATIVE NEGATIVE [facility] [place] Nitrite, UA NEGATIVE NEGATIVE [facility] [place] Leukocyte NEGATIVE NEGATIVE [facility] esterase, UA [place] WBC, UA NONE SEEN < OR = 5 /HPF [facility] [place] RBC, UA NONE SEEN < OR = 2 /HPF [facility] [place] Squamous NONE SEEN < OR = 5 /HPF [facility] epithelial cells, [place] UA Bacteria, UA NONE SEEN NONE SEEN /HPF [facility] [place] Hyaline casts, UA NONE SEEN NONE SEEN /LPF [facility] [place] Reflex Comment: NO [facility] CULTURE [place] INDICATED Specimen Resulting Agency Comment Performing Organization Information: Site ID: [id number] Name: [employer] Address: [address] [place] [phone] Director: Jimbo Nelson Performing Organization Address City/State/ZIP Code Phon e Number [facility] [address] [address] Total iron binding capacity (12/13/2019 2:19 PM CDT) Pathologist Sig nature Iron level 93 50 - 180 mcg/dL [facility] [place] Iron binding capacity 330 250 - 425 mcg/dL [facility] (calc) [place] Iron saturation 28 20 - 48 % (calc) [facility] [place] Specimen Blood Resulting Agency Comment Performing Organization Information: Site ID: [id number] Name: [employer] Address: [address] [place] [phone] Director: Jimbo Nelson Performing Organization Address [facility] Phon e Number [facility] [place] [phone] Thyroid stimulating hormone (12/13/2019 2:19 PM CDT) Pathologist Sig nature TSH 0.70 0.40 - 4.50 mIU/L [facility] [place] Specimen Blood Resulting Agency Comment Performing Organization Information: Site ID: [id number] Name: [facility] Address: [address] [place] [phone] Director: Jimbo Nelson Performing Organization Address City/[facility] Phon [place] [address] T4, free (12/13/2019 2:19 PM CDT) Pathologist Sig nature T4, free 1.2 0.8 - 1.8 ng/dL [facility] [place] Specimen Blood Resulting Agency Comment Performing Organization Information: Site ID: [id number] Name: [employer] Address: [address] [place] [phone] Director: Jimbo Nelson Performing Organization Address [facility] Phon e Number [employer] [facility] [facility] [address] [address] Ferritin level (12/13/2019 2:19 PM CDT) Pathologist Sig nature Ferritin level 71 24 - 380 ng/mL [facility] [place] Specimen Blood Resulting Agency Comment Performing Organization Information: Site ID: [id number] Name: [employer] Address: [address] [place] [phone] Director: Jimbo Nelson Performing Organization Address [facility] Phon e Number [facility] [address] [address] Vitamin B12 level (12/13/2019 2:19 PM CDT) Pathologist Sig nature Vitamin B12 1,041 200 - 1,100 pg/mL [facility] [place] Specimen Blood Resulting Agency Comment Performing Organization Information: Site ID: [id number] Name: [facility] Address: [address] [place] [address] Director: Jimbo Nelson Performing Organization Address City/State/ZIP Code Phon e Number [facility] [address] [place] [address] ECG 12 lead (12/13/2019 2:14 PM CDT) Pathologist Sig nature Ventricular rate 67 [facility] Atrial rate 67 [facility] MS interval 150 [facility] QRSD interval 90 [facility] QT interval 398 [facility] QTC interval 420 [facility] P axis 1 37 [facility] QRS axis 1 46 [facility] T wave axis 54 [facility] EKG impression Normal sinus [facility] rhythm-Nonspecific ST/T wave changes in V1, V2- Specimen Narrative Performed At This result has an attachment that is no t available. Performing Organization Address City/[facility] Code Phon e Number [facility] [address] [place] [address] after 04/20/2019 Advance Directives For more information, please contact: [phone] Type Date Recorded Patient Inbound Sales Representative Explanati on Advance Directives, Living Will and Medical Power of Telegraphic Typewriter Operator
--- OUTSIDE RECORDS SUMMARY | 2020-04-20 01:19 | XMS REPORT | Continuity of Care Document ---
:1955 Author Organization [facility] t Address [address] [place] [address] Care Team Providers Name Role Phone Yuniel LUGO Primary Care Physician Rema LUGO, R. Attending Clinician Sarahy LUGO, R. Attending Clinician Yuniel LUGO Attending Clinician Emre MCCORD Attending Clinician Unavailable Chandrika FULLER Attending Clinician Unavailable Payers Payer Name Policy Type Policy Effective Date Expiration Date [facility] Number [id number] [facility] [id number] 2015 [place] PPO/FEDERAL 00:00:00 Muslim EMPL [id number] 2015-Presen tPPO Problems Condition Condition Condition Status Onset Resolution Last Treating Co mments Source Name Details Category Date Date Treatment Clinician Date Dizziness Dizziness Disease Active Vamsi ston 07-07 Methodi 00:00: st 00 Allergies, Adverse Reactions, Alerts This patient has no known allergies or adverse reactions. Family History Family Member Diagnosis Comments Start Date Stop Date Source Natural father Diabetes [facility] thodist Maternal grandfather Coronary artery [place] Muslim disease Natural mother Breast cancer [facility] Social History Social Habit Start Date Stop Date Quantity Comments Source Sex Assigned At [facility] ethodi Tobacco use and 2020-04-18 2020-04-18 Never used [facility] ethodi exposure 00:00:00 00:00:00 Alcohol intake 2020-04-18 2020-04-18 Current drinker [place] 00:00:00 00:00:00 of alcohol (finding) Smoking Status Start Date Stop Date Source Never smoker [place] [facility] Medications This patient has no known medications. Immunizations Ordered Immunization Filled Immunization Date Status Commen ts Source Name Name ISHMAEL LU PF 2019-12-13 Completed [place] 00:00:00 Muslim Vital Signs Vital Name Observation Time Observation Value Comments Source Systolic blood 2020-04-18 08:21:00 123 mm[Hg] Jaimie n Muslim pressure Diastolic blood 2020-04-18 08:21:00 75 mm[Hg] [place] on Muslim pressure Heart rate 2020-04-18 08:21:00 70 /min Huber Calles Oxygen saturation in 2020-04-18 08:21:00 96 /min Huber Calles Arterial blood by Pulse oximetry Body temperature 2020-04-18 06:10:31 37 Mikaela [place] Muslim Respiratory rate 2020-04-18 06:10:31 18 /min Josseline Calles Body height 2019-12-17 13:09:00 193 cm Huber Calles Body weight 2019-12-17 13:09:00 99.338 kg Huber Calles BMI 2019-12-17 13:09:00 26.66 kg/m2 Huber Calles Procedures Procedure Date / Time Performed Performing Clinician Sour e HC COMPLETE BLD COUNT 2020-04-18 06:40:00 Jaimie Hodgson W/AUTO DIFF Geoff Cordova COMPREHENSIVE METABOLIC 2020-04-18 06:40:00 Josseline Hodgson PANEL Geoff Cordova ESTIMATED GFR 2020-04-18 06:40:00 Huber Hodgson CBC WITH PLATELET AND 2019-12-13 14:19:00 Paola Brice DIFFERENTIAL FERRITIN LEVEL 2019-12-13 14:19:00 Paola Brice TOTAL IRON BINDING 2019-12-13 14:19:00 Paola Brice ethodist CAPACITY COMPREHENSIVE METABOLIC 2019-12-13 14:19:00 Paola Brice PANEL T4, FREE 2019-12-13 14:19:00 Paola Brice THYROID STIMULATING 2019-12-13 14:19:00 Paola Brice HORMONE URINALYSIS, COMPLETE, 2019-12-13 14:19:00 YunielPaola Josselinemary n Muslim WITH REFLEX TO CULTURE VITAMIN B12 LEVEL 2019-12-13 14:19:00 YunielPaola Ngo Me thodist ECG 12-LEAD 2019-12-13 14:14:43 Paola Brice Huber Meth odist Plan of Care Planned Activity Planned Date Details Comments Source Future Scheduled 2025-03-13 COLONOSCOPY SCREENING [place] [facility] 00:00:00 [code = COLONOSCOPY SCREENING] Future Scheduled 2007-11-04 SHINGLES VACCINES [place] [facility] 00:00:00 (#1) [code = SHINGLES VACCINES (#1)] Future Scheduled 1975-11-04 Hepatitis C screening [place] [facility] 00:00:00 (procedure) [code = 807488577] Future Scheduled 1973 COVID-19 VACCINE (1 [place] [facility] Test 00:00:00 of 2) [code = COVID-19 VACCINE (1 of 2)] Encounters Start End Encounter Admission Attending Care Care Encounter Source Date/Time Date/Time Type Type Clinicians Facility Department ID 2020-04-18 2020-04-18 Emergency [facility] [id number] [place] 00:00:00 00:00:00 RI, [address] 2019-12-17 2019-12-17 [id number] [place] 00:00:00 00:00:00 PEGGY [address] 2019-12-13 2019-12-13 Outpatient [facility] [id number] [place] 00:00:00 00:00:00 PAOLA [address] 2019-07-08 2019-07-10 [id number] [place] 00:00:00 00:00:00 PEGGY [address] Results Test Description Test Time Test Comments Results Result Comments Source Comprehensive metabolic panel 2020-04-18 07:55:02 Test Item Value Reference Range Interpretation Comme nts Sodium (test code = 2951-2) 136 135- 148 mEq/L Potassium (test code = 2823-3) 4.0 3.5- 5.0 mEq/L Chloride (test code = 5-0) 103 98- 112 mEq/L CO2 (test code = 2027-) 25 24- 31 mEq/L Anion gap (test code = 31351-1) 8@ANIO 7- 15 mEq/L BUN (test code = 3094-0) 20 mg/dL 8-23 Creatinine (test code = 2160-0) 1.22 mg/dL 0.7-1.2 H Glucose (test code = 2345-7) 95 mg/dL 65-99 Calcium (test code = 95097-7) 9.4 mg/dL 8.8-10.2 Protein (test code = 2885-2) 7.8 g/dL 6.3-8.3 -Cameron 4.6-7.0 g/dL1 week 4. 4-7.6 g/dL7 months-1y ear 5.1-7.3 g/d L1-2 years 5.6-7.5 g/dL>3 years 6.0 -8.0 g/rV32-985 6.3-8.3 g/d L Albumin (test code = 1751-7) 3.3 g/dL 3.5-5 L A/G ratio (test code = 1759-0) 0.7 0.7-3.8 Alkaline phosphatase (test code = 55 U/L 40-129 68-6) AST (test code = 1920-8) 21 U/L 10-50 ALT (test code = 1742-6) 29 U/L 5-50 Total bilirubin (test code = 0.3 mg/dL 0-1.2 1974-04) Lab Interpretation (test code = Abnormal 74363-7) [place] MethodistEstimated [id number] 07:55:00 Test Item Value Reference Range Interpretation Comments Estimated GFR (test 63 mL/min/1.73 m2 Caterg ory Units code = 5488) InterpretationG 1 >=90 Normal or highG2 60-89 Mildly rwuqdmukdP0r 45-59 Mildly to mode rately pwlhzifixS4m 30-44 Moderately to severely decreasedG4 15-29 Severely decre asedG5 <15 Kidn ey failureThe eGFR was calculated jack peacock the Chronic Kidney Disease Epidemiology Co llaboration (CKD-EPI) equat ion. Interpretation is based on recommendations of the National Kidney Foundation-Kidn ey Disease Outcomes Qualit y Initiative (NKF-KDOQI) pub lished in 2013. [place] MethodistCBC with platelet and [id number] 07:27:11 Test Item Value Reference Range Interpretation Comments WBC (test code = 72177-1) 3.90 4.50- 11.00 k/uL L RBC (test code = 50149-3) 4.58 m/uL 4.4-6 HGB (test code = 718-7) 13.9 g/dL 14-18 L HCT (test code = 4544-3) 42.2 % 41-51 MCV (test code = 787-2) 92.1 fL 82-100 MCH (test code = 785-6) 30.3 pg 27-34 MCHC (test code = 786-4) 32.9 g/dL 31-37 RDW - SD (test code = 45.7 fL 37-55 93368-7) MPV (test code = 19755-3) 10.0 fL 8.8-13.2 Platelet count (test code 205 150- 400 k/uL = 66727-6) Nucleated RBC (test code 0.00 /100 WBC = 25534-0) Neutrophils (test code = 67.7 % 39-69 40122-2) Lymphocytes (test code = 24.1 % 25-45 L 51261-2) Monocytes (test code = 6.9 % 0-10 26513-3) Eosinophils (test code = 0.8 % 0-5 64304-8) Basophils (test code = 0.5 % 0-1 39491-2) Immature granulocytes 0.0 % 0-1 "Immat ure (test code = 70920-0) granul ocytes" (promyelocytes, myelocytes, metamyelocytes) Lab Interpretation (test Abnormal code = 53463-7) [place] MethodistVitamin B12 [id number] 07:25:00 Test Item Value Reference Range Interpretation Comments Vitamin B12 (test 1041 pg/mL 200-1100 code = 2132-9) RAC (test code = Performing Organization RAC) Information: Site ID: RGA Name: [facility] Address: [address] [place] [phone] Director: Jimbo Nelson Ngo MethodistFerritin [id number] 07:25:00 Test Item Value Reference Range Interpretation Comments Ferritin level (test 71 ng/mL 24-380 code = 2276-4) RAC (test code = RAC) Performing Organization Information: Site ID: MORIAHA Name: [facility] Address: [address] [place] [address] Director: Jimbo CallesTErick, [id number] 07:25:00 Test Item Value Reference Range Interpretation Comments T4, free (test code 1.2 ng/dL 0.8-1.8 = 3024-7) RAC (test code = Performing Organization RAC) Information: Site ID: RGA Name: [facility] Lab Address: [address] [place] [address] Director: Jimbo Ngo MethodistThyroid stimulating [id number] 07:25:00 Test Item Value Reference Range Interpretation Comments TSH (test code = 0.70 0.40- 4.50 mIU/L 3016-3) RAC (test code = Performing Organization RAC) Information: Site ID: MORIAHA Name: [facility] Address: [address] [place], [place] [id number] Director: Jimbo CallesTotal iron binding [id number] 07:25:00 Test Item Value Reference Range Interpretation Comments Iron level (test 93 50- 180 mcg/dL code = 2498-4) Iron binding 330 250- 425 mcg/dL capacity (test code (calc) = 2500-7) Iron saturation 28 20- 48 % (calc) (test code = 2502-3) RAC (test code = Performing RAC) Organization Information: Site ID: A Name: [facility] Address: [address] [place] [phone] Director: Jimbo Ngo MethodistURINALYSIS, COMPLETE, WITH REFLEX TO [id number] 07:25:00 Test Item Value Reference Range Interpretation Comments Color, UA (test code YELLOW YELLOW = 5778-6) Appearance (test code CLOUDY CLEAR A = 5767-9) Specific gravity, 1.024 1.001-1.035 urine (test code = 5811-5) pH, urine (test code 7.0 5.0-8.0 = 5803-2) Glucose, urine (test NEGATIVE NEGATIVE code = 91394-5) Bilirubin, UA (test NEGATIVE NEGATIVE code = 5770-3) Ketones, UA (test NEGATIVE NEGATIVE code = 2514-8) Occult blood, urine NEGATIVE NEGATIVE (test code = 5794-3) Protein, UA (test NEGATIVE NEGATIVE code = 52385-9) Nitrite, UA (test NEGATIVE NEGATIVE code = 5802-4) Leukocyte esterase, NEGATIVE NEGATIVE UA (test code = 5799-2) WBC, UA (test code = NONE SEEN < OR = 5 /HPF 5821-4) RBC, UA (test code = NONE SEEN < OR = 2 /HPF 56827-2) Squamous epithelial NONE SEEN < OR = 5 /HPF cells, UA (test code = 33855-1) Bacteria, UA (test NONE SEEN NONE SEEN /HPF code = 5769-5) Hyaline casts, UA NONE SEEN NONE SEEN /LPF (test code = 5796-8) Reflex (test code = NO CULTU RE 630-4) INDICATED RAC (test code = RAC) Performing Organization Information: Site ID: RGA Name: [facility] Address: [address] [place] [id number] Director: Jimbo Nelson Lab Interpretation Abnormal (test code = 89382-6) [facility]CL[facility] 12 [id number] 14:27:36 Test Item Value Reference Range Interpretation Comments Ventricular rate (test 67 code = 253) Atrial rate (test code = 67 255) PA interval (test code = 150 266) QRSD interval (test code 90 = 260) QT interval (test code = 398 264) QTC interval (test code = 420 265) P axis 1 (test code = 37 267) QRS axis 1 (test code = 46 268) T wave axis (test code = 54 270) EKG impression (test code Normal sinus = 273) rhythm-Nonspecific ST/T wave changes in V1, V2- Huber Calles
[2020-04-20 01:29] VITALS: BMI 27.5
[2020-04-20] MEDS ORDERED: TRAZODONE 50 MG TABLET PO PRN (01:36)
[2020-04-20] MEDS ORDERED: Ringers Lactate 1,000 ML IV SCH ×2 (02:00→07:00)
[2020-04-20] MEDS: IPRATROPIUM BROM 0.5MG/2.5ML NEB SCH ×2 (04:40→08:04)
[2020-04-20] MEDS: ALBUTEROL 2.5 MG/3 ML NEB SOL NEB SCH ×2 (04:40→08:04)
[2020-04-20] MEDS: ACETAMINOPHEN 325 MG TABLET PO PRN ×3 (05:12→22:46)
[2020-04-20 05:49] LABS: Absolute Lymphocytes (CBC) 0.6 K/uL (0.7-4.9); Basophils % 0.1 % (0-1.3); Hematocrit 37.8 % (39.6-49.0); Lymphocytes % 10.1 % (15.3-44.8); MPV 8.1 fL (7.6-11.3); RBC Red Blood Cell Count 4.21 M/uL (4.33-5.43)
[2020-04-20 06:07] LABS: ALT/SGPT 35 U/L (12-78); AST/SGOT 22 U/L (15-37); Alkaline Phosphatase 53 U/L (45-117); BUN Blood Urea Nitrogen 20 mg/dL (7-18); Bicarbonate 24 mmol/L (21-32); Bilirubin Direct < 0.1 mg/dL (0-0.2); Bilirubin Total 0.3 mg/dL (0.2-1.0); Glucose Level 125 mg/dL (74-106); Protein, Total 7.4 g/dL (6.4-8.2); Sodium Level 138 mmol/L (136-145)
[2020-04-20] MEDS ORDERED: VANCOMYCIN/NS 1 gm 1 GM/250 ML BAG IVPB SCH (06:30)
[2020-04-20 06:49] LABS: Blood Morphology Comment NOT SEEN (NOT SEEN); Platelet Estimate ADEQ
[2020-04-20] MEDS ORDERED: VANCOMYCIN 2.5 GM in NA CHLORIDE 0.9% 500 ML IVPB ONE ×2 (07:00→08:00)
[2020-04-20 07:28] LABS: Urine Appearance CLEAR; Urine Bilirubin NEGATIVE (NEG); Urine Blood NEGATIVE (NEG); Urine Color YELLOW; Urine Glucose NEGATIVE (NEG); Urine Protein NEGATIVE (NEG); Urine Specific Gravity 1.025 (1.005-1.030); Urine Urobilinogen 0.2 mg/dL (0.2-1.0)
[2020-04-20 07:32] LABS: Urine Microscopic Reflex NO UMIC
[2020-04-20] MEDS ORDERED: ENOXAPARIN 40 MG/0.4 ML SQ SCH (09:00)
--- NOTE | 2020-04-20 10:16 | RAD REPORT ---
EXAM DESCRIPTION: RAD - Chest Pa And Lat (2 Views) - 04/20/2020 10:08 am CLINICAL HISTORY: Pneumonia Chest pain. COMPARISON: Chest Pa And Lat (2 Views) dated 04/16/2020; Chest Single View dated 06/11/2018; Chest Singl e View dated 05/25/2018; Chest Single View dated 01/02/2018 FINDINGS: Mild airspace opacity is present in the left lung base medially most compatible with infil trate/pneumonia. This appears new since the comparative study. The heart is mildly enlarged in size. No displaced fractures. IMPRESSION: Mild airspace opacity is present in the medial left lung base compatible with pneumonia/ infiltrate.
[2020-04-20] MEDS ORDERED: IBUPROFEN 400 MG TAB PO STA (11:09)
--- NOTE | 2020-04-20 11:52 | P.CNS ---
Date of Consult: 04/20/20 Reason for Consult: High fever possible pneumonia Chief Complaint: High recurrent fever History of Present Illness: Patient is 64 years of age formally healthy no other medical issues was admitted with recurrent high fever for the past week tested negative for cardoso virus chest x-ray shows a retrocardiac infiltrate denies any cough shortness of breath does take any medication Allergies No Known Allergies Allergy (Verified 04/20/20 01:20) Home Medications: NK [No Home Meds] 04/20/20 - Past Medical/Surgical History Diabetic: No -: arthritis -: ileus -: right Shoulder Sx -: appendectomy - Family History Father Medical History: Diabetes Mother Notes: Intestinal Cancer Sister Notes: HTN - Social History Smoking Status: Never smoker Alcohol use: No CD- Drugs: No Caffeine use: Yes Place of Residence: Home Review of Systems 10-point ROS is otherwise unremarkable Physical Examination Temp Pulse Resp BP Pulse Ox 104.4 F H 83 28 H 128/71 94 04/20/20 11:19 04/20/20 08:00 04/20/20 08:00 04/20/20 08:00 04/20/20 08:00 General: Alert, In no apparent distress, Oriented x3 Respiratory: Clear to auscultation bilaterally Cardiovascular: No edema, Normal pulses, Regular rate/rhythm Gastrointestinal: Normal bowel sounds, Soft and benign Musculoskeletal: No clubbing, No contractures Laboratory Data (last 24 hrs) 04/20/20 06:45: Plt Count Cancelled 04/20/20 05:17: Sodium 138, Potassium 4.0, BUN 20 H, Creatinine 0.98, Glucose 125 H, Total Bilirubin 0.3, AST 22, ALT 35, Alkaline Phosphatase 53 04/20/20 05:17: WBC 5.90 D, Hgb 12.7 L, Hct 37.8 L, Plt Count 209 - Problems (1) High fever Current Visit: Yes Status: Acute Plan: Patient is 64 years of age admitted with fever for the past 3-4 days white count is normal CRP mildly elevated patient has tested negative for cardoso virus patient is on broad-spectrum antibiotics border CT scan of the chest inflammatory markers ordered for tomorrow
[2020-04-20] MEDS: Ringers Lactate 1,000 ML IV SCH (11:54)
[2020-04-20] MEDS ORDERED: IPRATROPIUM BROM 0.5MG/2.5ML NEB PRN (11:56)
[2020-04-20] MEDS ORDERED: ALBUTEROL 2.5 MG/3 ML NEB SOL NEB PRN (11:56)
--- NOTE | 2020-04-20 12:50 | RAD REPORT ---
EXAM DESCRIPTION: CT - Thorax Wo Con CLINICAL HISTORY: Chest pain FUOm Fever COMPARISON: Chest For Pe Angio dated 01/07/2018; Chest Pa And Lat (2 Views) dated 04/20/2020; Chest Pa And Lat (2 Views) dated 04/16/2020 FINDINGS: Moderate interstitial lung opacities are seen in both lower lobes posteriorly. Mild inters titial opacities are seen in the posterior segment of both upper lobes. These findings are likely rel ated to inflammation or infection. No pleural thickening or pleural effusion. No pneumothorax. No axillary, mediastinal or hilar adenopathy. No concerning bony finding. No gross upper abdominal finding. All CT scans are performed using dose optimization technique as appropriate and may include automated exposure control or mA/KV adjustment according to patient size. IMPRESSION: Moderate interstitial lung opacities in both posterior lower lobes as well as posterior segments of both upper lobes are present.Findings likely related to inflammation or underlying infect ion.
[2020-04-20] MEDS ORDERED: levoFLOXacin 500 MG TAB PO SCH (16:00)
[2020-04-20] MEDS ORDERED: VANCOMYCIN 1.75 GM in NA CHLORIDE 0.9% 500 ML IVPB SCH ×2 (19:00→20:00)
[2020-04-20] MEDS ORDERED: Levofloxacin 750mg IV 750 MG/150 ML BAG IV SCH (20:00)
--- NOTE | 2020-04-20 21:12 | P.HP ---
Certification for Inpatient Patient admitted to: Inpatient Practitioner: I am a practitioner with admitting privileges, knowledge of patient current condition, hospital course, and medical plan of care. Services: Services provided to patient in accordance with Admission requirements found in Title 42 Section 412.3 of the Code of Federal Regulations Patient History Date of Service: 04/20/20 Reason for admission: High recurrent fever History of Present Illness: MR. WATKINS HAS HAD FEVER FOR A WEEK. ABOUT A FEW DAYS AGO I CHECKED HIM, HIS COVID TEST WAS NEGATIVE TWICE. I ORDERD CXR, TWO BLLOOD CULTURES AND CBC. THIS WAS NEGATIVE INITIALLY. HE WAS GIVEN AUGMENTIN HE SAID HE FELT THE SAME WAY WITH PRESSURE IN NOSE WHEN HE HAD SINUSITIS. HE HAD TWO MORE VISITS TO ER ONCE AT [facility] AND [facility]CE [facility]. LAST NIGHT I HAD CALL FROM , DAUGHTER AND SO I ASKED ER DOCTOR TO CALL ME. INITIALLY HE DID NOT WANT TO GO TO HOSPITAL SO WE DECIDED TO GIVE HIM LEVAQUIN 750 MG IV BUT HIS OXYGEN REAMINED AT 88% ON RA ON WALKING SO ER DOCTOR CALLED AGAIN AND I ADMITTED HIM TO [facility], DIRECTLY. OVERNIGHT HE WAS GIVEN IV FLUIDS, THIS AM HE HAD FEVER OF 101 AGAIN, HE WAS GIVEN VANCOMYCIN IV THERE WAS MULTIFOCAL PNEUMONIA REPORTED AND HIS FEVER CONTINUED AFTER AUGMENTIN AND LEVAQUIN. HE HAD HIGH FEVER ADN RED FACE AFTER VANCOMYCIN. I ASKED NURSE TO STOP VANCOMYCIN IT WAS A RED MAN REACTION. HE LATER WAS WALKING WITHOUT HYPOXIA AND HAD FEVER GONE TO 102.7 DEG F AGAIN. BY THIS TIME I HAVE ALREADY TALKED TO , DAUGHTER, PATIENT AND THE NURSES ABOUT 3 TIMES. WHO IS VERY ANXIOUS COMPLAINED THAT I AM NOT RESPONDING TO MY PHONE CALLS. I CALLED HER BACK AND HAD TO LEAVE MESSAGE SHE DID NOT SPRING COILER HAND PHONE AND EXPLAINED HOW MANY TIMES I ALREADY HAVE TALKED TO MANY PEOPLE, GIVEN ORDERS APPROPRIATE TO ILLNESS AT THAT POINT AND ALSO TALKED TO DR. BLOOM TWICE. I ASKED NURSE TO DO FLU TEST ALSO. Allergies No Known Allergies Allergy (Verified 04/20/20 01:20) Home Medications: NK [No Home Meds] 04/20/20 - Past Medical/Surgical History Has patient received pneumonia vaccine in the past: No Diabetic: No -: arthritis -: ileus -: right Shoulder Sx -: appendectomy - Family History Father -: Diabetes Mother Notes: Intestinal Cancer Sister Notes: HTN - Social History Smoking Status: Never smoker Alcohol use: No CD- Drugs: No Caffeine use: Yes Place of Residence: Home Review of Systems 10-point ROS is otherwise unremarkable General: Weakness Physical Examination - Vital Signs Temperature: 100.7 F Blood Pressure: 118/61 Pulse: 82 Respirations: 27 Pulse Ox (%): 94 - Physical Exam General: Mild distress HEENT: Atraumatic, PERRLA, Mucous membr. moist/pink, EOMI, Sclerae nonicteric Neck: Supple, 2+ carotid pulse no bruit, No LAD, Without JVD or thyroid abnormality Respiratory: Clear to auscultation bilaterally, Normal air movement Cardiovascular: Regular rate/rhythm, Normal S1 S2 Gastrointestinal: Normal bowel sounds, No tenderness Musculoskeletal: No tenderness Integumentary: No rashes Neurological: Normal gait, Normal speech, Normal strength at 5/5 x4 extr, Normal tone, Normal affect Lymphatics: No axilla or inguinal lymphadenopathy - Studies Laboratory Data (last 24 hrs) 04/20/20 06:45: Plt Count Cancelled 04/20/20 05:17: Sodium 138, Potassium 4.0, BUN 20 H, Creatinine 0.98, Glucose 125 H, Total Bilirubin 0.3, AST 22, ALT 35, Alkaline Phosphatase 53 04/20/20 05:17: WBC 5.90 D, Hgb 12.7 L, Hct 37.8 L, Plt Count 209 Assessment and Plan - Problems (Diagnosis) (1) Interstitial pneumonia Current Visit: Yes Status: Acute Plan: WILL CONTINUE LEVAQUIN ORALLY IV WAS TOO MUCH FOR HIM. THIS CAN BE VIRAL PNEUMONIA AND MAY RECOVER WITH TIME ONLY. THERE IS NO SPUTUM TO COLLECT DR. BLOOM AGREES WITH THERAPY . VIRAL ANTIBODIES WILL TAKE MANY DAYS TO RESULT THEY ARE NOT DONE LOCALLY. (2) Fever Current Visit: Yes Status: Acute - Advance Directives Does patient have a Living Will: Yes Does patient have a Durable POA for Healthcare: Yes
[2020-04-20 21:22] LABS: SARS-COV-2 RT PCR POSITIVE (NEGATIVE)
[2020-04-20] MEDS: METHYLPREDNISOLONE 40 MG INJ IV SCH (22:10)
[2020-04-20] MEDS ORDERED: IVERMECTIN 3 MG TABLET PO ONE (23:00)
[2020-04-21] MEDS: Ringers Lactate 1,000 ML IV SCH (00:14)
[2020-04-21 05:23] LABS: Absolute Lymphocytes (CBC) 0.4 K/uL (0.7-4.9); Basophils % 0.1 % (0-1.3); Hematocrit 35.5 % (39.6-49.0); Lymphocytes % 4.5 % (15.3-44.8); MPV 7.9 fL (7.6-11.3); RBC Red Blood Cell Count 3.99 M/uL (4.33-5.43)
[2020-04-21 05:43] LABS: Ferritin 369.4 ng/mL (26-388)
--- NOTE | 2020-04-21 07:47 | RAD REPORT ---
EXAM DESCRIPTION: Criss[place] Single View04/21/2020 5:36 am CLINICAL HISTORY: Chest pain COMPARISON: April 20 FINDINGS: No significant change the bilateral pulmonary opacities. Heart is normal size. IMPRESSION: No significant change in mild bilateral pulmonary opacities probably pneumonia
[2020-04-21] MEDS: METHYLPREDNISOLONE 40 MG INJ IV SCH ×2 (07:55→20:25)
[2020-04-21] MEDS: FAMOTIDINE 20 MG TAB PO SCH ×2 (07:56→20:25)
[2020-04-21] MEDS: ZINC SULFATE 220 MG CAP PO SCH (07:56)
[2020-04-21] MEDS: ASCORBIC ACID 500 MG TABLET PO SCH (07:56)
--- NOTE | 2020-04-21 12:33 | P.PN ---
Subjective Date of Service: 04/21/20 Chief Complaint: Gaona virus pneumonia Patient is still having some fever nose with gaona virus Review of Systems General: Weakness Respiratory: Cough, Shortness of Breath Physical Examination - Vital Signs Temperature: 99.8 F Blood Pressure: 129/73 Pulse: 83 Respirations: 27 Pulse Ox (%): 92 - Physical Exam General: Alert, Oriented x3, Mild distress - Studies Laboratory Data (last 24 hrs) 04/21/20 04:44: WBC 8.60 D, Hgb 12.3 L, Hct 35.5 L, Plt Count 245 Assessment & Plan - Problems (Diagnosis) (1) Pneumonia due to coronavirus disease 2019 Current Visit: Yes Status: Acute Plan: Patient is 64 years of age admitted with gaona virus pneumonia agree with steroids ivermectin Dc IV antibiotics for wound multi vitamin support stable discharge tomorrow if this oxygenation remains stable chest x-ray reviewed CT scan reviewed minimal interstitial changes consistent with gaona virus labs reviewed CRP elevated pneumonia room-air saturation is normal possible discharge tomorrow on prednisone
[2020-04-21] MEDS ORDERED: RIVAROXABAN 10 MG TABLET PO SCH (17:00)
[2020-04-21] MEDS: THIAMINE HCL 100 MG TABLET PO SCH (20:25)
[2020-04-21] MEDS: ACETAMINOPHEN 325 MG TABLET PO PRN (20:26)
--- NOTE | 2020-04-21 20:34 | P.PN ---
Subjective Date of Service: 04/21/20 Chief Complaint: Gaona virus pneumonia Subjective: Improving MR. WATKINS IS STABLE, HE IS HAVING DRY COUGH AND SOME DYSPNEA. HIS FEVER HAS IMPROVED. HE HAD NO CHEST PAIN. Review of Systems 10-point ROS is otherwise unremarkable General: Weakness Respiratory: Shortness of Breath Physical Examination - Vital Signs Temperature: 100.8 F Blood Pressure: 119/73 Pulse: 82 Respirations: 30 Pulse Ox (%): 92 - Physical Exam General: Oriented x3, Mild distress, Moderate distress HEENT: Atraumatic, PERRLA, EOMI Respiratory: Other (MILD DISTRES IN BREATHING. ) Cardiovascular: Regular rate/rhythm Musculoskeletal: No tenderness Integumentary: No rashes Neurological: Normal speech, Normal tone, Normal affect Lymphatics: No axilla or inguinal lymphadenopathy - Studies Laboratory Data (last 24 hrs) 04/21/20 04:44: WBC 8.60 D, Hgb 12.3 L, Hct 35.5 L, Plt Count 245 Medications List Reviewed: Yes Assessment And Plan - Current Problems (Diagnosis) (1) Interstitial pneumonia Current Visit: Yes Status: Acute Plan: WILL CONTINUE LEVAQUIN ORALLY IV WAS TOO MUCH FOR HIM. THIS CAN BE VIRAL PNEUMONIA AND MAY RECOVER WITH TIME ONLY. THERE IS NO SPUTUM TO COLLECT DR. BLOOM AGREES WITH THERAPY . VIRAL ANTIBODIES WILL TAKE MANY DAYS TO RESULT THEY ARE NOT DONE LOCALLY. HE WILL GO HOME IN AM IF STABLE. HE IS ON ALL MEDS NEEDED. (2) Fever Current Visit: Yes Status: Acute
[2020-04-21] MEDS ORDERED: MELATONIN 5 MG TABLET PO SCH (21:00)
[2020-04-22 05:08] LABS: Absolute Lymphocytes (CBC) 0.5 K/uL (0.7-4.9); Hematocrit 34.3 % (39.6-49.0); Lymphocytes % 3.3 % (15.3-44.8); MPV 7.9 fL (7.6-11.3); RBC Red Blood Cell Count 3.84 M/uL (4.33-5.43)
[2020-04-22] MEDS: THIAMINE HCL 100 MG TABLET PO SCH (08:04)
[2020-04-22] MEDS: ASCORBIC ACID 500 MG TABLET PO SCH (08:04)
[2020-04-22] MEDS: FAMOTIDINE 20 MG TAB PO SCH (08:04)
[2020-04-22] MEDS: METHYLPREDNISOLONE 40 MG INJ IV SCH (08:04)
[2020-04-22] MEDS: ZINC SULFATE 220 MG CAP PO SCH (08:04)
[2020-04-22] MEDS ORDERED: IVERMECTIN 3 MG TABLET PO ONE (09:00)
[2020-04-22] MEDS: ACETAMINOPHEN 325 MG TABLET PO PRN (10:41)
[2020-04-22 12:07] VITALS: TEMP 98
[2020-04-22 12:20] VITALS: O2SAT 95
[2020-04-22 13:49] VITALS: BP 122/76
[2020-04-22] MEDS ORDERED: RIVAROXABAN 20 MG TABLET PO SCH (17:00)
--- NOTE | 2020-04-22 18:11 | P.DS ---
Admission Date: 04/21/20 Discharge Date: 04/22/20 Disposition: ROUTINE DISCHARGE Discharge Condition: FAIR Reason for Admission: Gaona virus pneumonia - Problems (1) Interstitial pneumonia Status: Acute (2) Fever Status: Acute Brief History of Present Illness: MR. WATKINS HAS HAD FEVER FOR A WEEK. ABOUT A FEW DAYS AGO I CHECKED HIM, HIS COVID TEST WAS NEGATIVE TWICE. I ORDERD CXR, TWO BLLOOD CULTURES AND CBC. THIS WAS NEGATIVE INITIALLY. HE WAS GIVEN AUGMENTIN HE SAID HE FELT THE SAME WAY WITH PRESSURE IN NOSE WHEN HE HAD SINUSITIS. HE HAD TWO MORE VISITS TO ER ONCE AT [facility] AND ONCE AT [facility] ER. LAST NIGHT I HAD CALL FROM , DAUGHTER AND SO I ASKED ER DOCTOR TO CALL ME. INITIALLY HE DID NOT WANT TO GO TO HOSPITAL SO WE DECIDED TO GIVE HIM LEVAQUIN 750 MG IV BUT HIS OXYGEN REAMINED AT 88% ON RA ON WALKING SO ER DOCTOR CALLED AGAIN AND I ADMITTED HIM TO [facility], DIRECTLY. OVERNIGHT HE WAS GIVEN IV FLUIDS, THIS AM HE HAD FEVER OF 101 AGAIN, HE WAS GIVEN VANCOMYCIN IV THERE WAS MULTIFOCAL PNEUMONIA REPORTED AND HIS FEVER CONTINUED AFTER AUGMENTIN AND LEVAQUIN. HE HAD HIGH FEVER ADN RED FACE AFTER VANCOMYCIN. I ASKED NURSE TO STOP VANCOMYCIN IT WAS A RED MAN REACTION. HE LATER WAS WALKING WITHOUT HYPOXIA AND HAD FEVER GONE TO 102.7 DEG F AGAIN. BY THIS TIME I HAVE ALREADY TALKED TO , DAUGHTER, PATIENT AND THE NURSES ABOUT 3 TIMES. WHO IS VERY ANXIOUS COMPLAINED THAT I AM NOT RESPONDING TO MY PHONE CALLS. I CALLED HER BACK AND HAD TO LEAVE MESSAGE SHE DID NOT [employer] PHONE AND EXPLAINED HOW MANY TIMES I ALREADY HAVE TALKED TO MANY PEOPLE, GIVEN ORDERS APPROPRIATE TO ILLNESS AT THAT POINT AND ALSO TALKED TO DR. BLOOM TWICE. I ASKED NURSE TO DO FLU TEST ALSO. Hospital Course: MR WATKINS HAD FEVER FOR A WEEK, FATIGUE AND NO OTHER SYMPTOMS. IN HPI FIRST 3 TESTS WERE NEGATIVE, ONE WAS DONE AT [facility] AND OTHER TWO WERE RAPID TESTS IN ER. UNFORTUNATELY THE SAMPLE COLLECTION MUST NOT BE PROPER IN THE [facility] TEST. RAPID TESTS CAN BE FALSE NEGATIVE. TEST DONE AT [facility] WAS POSITIVE EVENTHOUTH IT WAS RAPID. INITIALLY NOT KNOWING THE DIAGNOSIS IT WAS TREATED ATYPICAL PNEUMONIA. HE CONTIUED TO HAVE FEVER SO WE ADDED VANCOMYCIN AND THEN HE HAD HIGH FEVER WITH RED MAN REACTION. ONCE WE FOUND COVID INFECTION, HE WAS GIVEN IVERMECTINE AND SREROIDS AND RECOVERED WELL. HIS OXYGEN REMAINED MORE THAN 93%. HE IS DISCHARGED IN STABLE CONDITION WITH MEDS. Vital Signs/Physical Exam: Temp Pulse Resp BP Pulse Ox 98.0 F 83 27 H 122/76 92 04/22/20 12:00 04/22/20 12:00 04/22/20 08:00 04/22/20 12:00 04/22/20 08:00 Laboratory Data at Discharge: WBC 14.40 K/uL (4.3-10.9) H D 04/22/20 04:45 Hgb 11.8 g/dL (13.6-17.9) L 04/22/20 04:45 Hct 34.3 % (39.6-49.0) L 04/22/20 04:45 Plt Count 264 K/uL (152-406) 04/22/20 04:45 Sodium 138 mmol/L (136-145) 04/20/20 05:17 Potassium 4.0 mmol/L (3.5-5.1) 04/20/20 05:17 BUN 20 mg/dL (7-18) H 04/20/20 05:17 Creatinine 0.98 mg/dL (0.55-1.3) 04/20/20 05:17 Glucose 125 mg/dL (74-106) H 04/20/20 05:17 Total Bilirubin 0.3 mg/dL (0.2-1.0) 04/20/20 05:17 AST 22 U/L (15-37) 04/20/20 05:17 ALT 35 U/L (12-78) 04/20/20 05:17 Alkaline Phosphatase 53 U/L (45-117) 04/20/20 05:17 Home Medications: Ivermectin 3 mg PO ONCE #6 tablet 04/22/20 Rivaroxaban [Xarelto] 20 mg PO DAILY #30 tab 04/22/20 predniSONE [Deltasone] 20 mg PO BID #60 tab 04/22/20 New Medications: Ivermectin 3 mg PO ONCE #6 tablet predniSONE [Deltasone] 20 mg PO BID #60 tab Rivaroxaban [Xarelto] 20 mg PO DAILY #30 tab Physician Discharge Instructions: PROBLEM: COVID-19 GOAL: Clear understanding of disease process INSTRUCTIONS: Okay to discharge home and discontinue IV. Take dose of Ivermectin 04/23/20 around 9:00am Take all other medications as prescribed Dr. Bowles wants to see you Monday via telemed on your cell phone. When in public wear a mask, keep 6ft away from others, and wash your hands frequently When at home, continue to use incentive spirometry machine, sit up right throughout the day. While sleeping, sleep on left or right side, or stomach, avoid laying on your back to help open up lower lung ferrell and allow better oxygenation. Be sure to check your oxygen levels several times a day in between ambulation or when feeling short of breath, for COVID-19 patients between 88-90% is to be expected, if your oxygen levels stay consistently below 88% at rest, consult your physician or come back to Emergency room for further evaluation. If you have any questions regarding your hospital stay, call [phone]. Alternate tylenol and Ibuprofen for fever every 4-6 hours as needed. Diet: Regular Activity: As tolerated IMMUNIZATION Influenza Vaccine Indicated: No Influenza Vaccine Given: Date Given: Pneumonia Vaccine Indicated: No Pneumonia Vaccine Given: Date Given:
[2020-04-23] MEDS ORDERED: IVERMECTIN 3 MG TABLET PO ONE (09:00)
[2020-04-27] MEDS ORDERED: DRISDOL (VITAMIN D=ERGOCALCIFEROL) 50000 UNIT CAP PO SCH (09:00)
== END 2020-04-22 13:20 | disposition home or self-care (01) | DRG 177 ==
LOC: 2ND 04-20 01:15 → 3RD-ICU 04-20 22:23 → OBSVTOIN 04-21 10:16
PROVIDERS: ADMIT Internal Medicine; ATTEND Internal Medicine
DX: U07.1 COVID-19 (principal); J12.82 Pneumonia due to coronavirus disease 2019; Z90.49 Acquired absence of other specified parts of digestive tract; Z79.52 Long term (current) use of systemic steroids; Z79.899 Other long term (current) drug therapy; Z79.01 Long term (current) use of anticoagulants
CPT/HCPCS: 0240U; 36415; 71045; 71046; 71250; 80053; 81003; 82248; 82728; 83605; 85025; 85379; 85652; 86140; 87040; 94640; 94660; 94760; G0378; G0379; J1650; J2920; J3370; J7040; J7120

== ENCOUNTER 2021-09-06 17:54 | Observation (INO) | payer BC ==
--- OUTSIDE RECORDS SUMMARY | 2021-09-06 17:57 | XMS REPORT | Continuity of Care Document ---
:1955 Author Organization [facility] t Address [address] [place] [address] [place] [id number] Care Team Providers Name Role Phone Chacha LUGO Primary Care Physician [email or web address] Attending Clinician Unavailable Ravi Rodrigues Attending Clinician [phone] Rema LUGO, R. Attending Clinician SARAHY Attending Clinician Unavailable CHACHA Attending Clinician Unavailable [email or web address]_I Admitting Clinician Unavailable Payers Payer Name Policy Type Policy Number Effective Date Expiration Date S bern[place] [id number] 2015 00:00:00 [place] Problems Condition Condition Condition Status Onset Resolution Last Treating Co mments Source Name Details Category Date Date Treatment Clinician Date Dizziness Dizziness Disease Active [facility]07 [facility]: [facility]osp[facility] 00 l Allergies, Adverse Reactions, Alerts This patient has no known allergies or adverse reactions. Family History Family Member Diagnosis Comments Start Date Stop Date Source Natural father Diabetes [facility] Maternal grandfather Coronary artery Spiritism disease [facility] Natural mother Breast cancer [facility] Social History Social Habit Start Date Stop Date Quantity Comments Source Alcohol intake 2020-04-18 2020-04-18 Current drinker [facility] 00:00:00 00:00:00 of alcohol [facility] (finding) Tobacco use and 2015-09-08 2015-09-08 Smokeless tobacco [facility] exposure 00:00:00 00:00:00 non-user Hospital Sex Assigned At [birth year] [facility] 00:00[facility]00 00:00:00 Hospital Smoking Status Start Date Stop Date Source Never smoked tobacco [facility] Medications Ordered Filled Start Stop Current Ordering Indication Dosage Frequency Signature Comments Components Source Medication Medication Date Date Medication? Clinician (SIG) Name Name No known No No known [facility] medications 2-[address] 06:46: s [facility] 09 l No known No No known [facility] di medications 2-[address] 06:46: [facility] 09 l Immunizations Ordered Immunization Filled Immunization Date Status Commen ts Source Name Name FLUCELVAX QUAD PF 2019-12-[address] 00:[facility] Hospital FLUCELVAX QUAD PF 2019-12-[address] 00:[facility] Hospital Vital Signs Vital Name Observation Time Observation Value Comments Source Systolic blood 2020-04-18 14:21:00 123 mm[Hg] [facility] pressure Diastolic blood 2020-04-18 14:21:00 75 mm[Hg] [facility] pressure Heart rate 2020-04-18 14:21:00 70 /min [facility] Oxygen saturation in 2020-04-18 14:21:00 96 /min [facility] Arterial blood by Pulse oximetry Body temperature 2020-04-18 12:10:31 37 Mikaela [facility] Respiratory rate 2020-04-18 12:10:31 18 /min [facility] Procedures Procedure Date / Time Performing Clinician Source Performed HC COMPLETE BLD COUNT 2020-04-18 12:40:00 [facility] W/AUTO DIFF Geoff Cordova COMPREHENSIVE METABOLIC 2020-04-18 12:40:00 [facility] PANEL Geoff Cordova ESTIMATED GFR 2020-04-18 12:40:00 [facility] spital Geoff Cordova Plan of Care Planned Activity Planned Date Details Comments Source Future Scheduled 2021-03-29 COVID-19 VACCINE (1) [facility] Test 12:30:42 [code = COVID-19 VACCINE (1)] Future Scheduled 2021-03-29 Hepatitis C screening [facility] Test 12:30:42 (procedure) [code = 293440188] Future Scheduled 2021-03-29 SHINGLES VACCINES Method [facility] Test 12:30:42 (#1) [code = SHINGLES VACCINES (#1)] Future Scheduled 2021-03-29 INFLUENZA VACCINE Method [facility] Test 12:30:42 [code = INFLUENZA VACCINE] Future Scheduled 2021-03-[address] [facility] Test 12:30:42 [code = COLONOSCOPY SCREENING] Future Scheduled 2021-03-29 COVID-19 VACCINE (1) Met [facility] Test 12:30:42 [code = COVID-19 VACCINE (1)] Future Scheduled 2021-03-29 Hepatitis C screening [facility] Test 12:30:42 (procedure) [code = [id number]] Future Scheduled 2021-03-29 SHINGLES VACCINES Method [facility] Test 12:30:42 (#1) [code = SHINGLES VACCINES (#1)] Future Scheduled 2021-03-29 INFLUENZA VACCINE Method [facility] Test 12:30:42 [code = INFLUENZA VACCINE] Future Scheduled 2021-03-[address] [facility] Test 12:30:42 [code = COLONOSCOPY SCREENING] Encounters Start End Encounter Admission Attending Care Care Encounter Source Date/Time Date/Time Type Type Clinicians Facility Department ID 2021-06-08 2021-06-08 Outpatient GC_TNC_Cher PRIV PRIV [id number] [facility] 09:54:00 09:54:00 ches_I [id number] Medica l 2021-06-07 2021-06-07 Outpatient GC_TNC_Cher PRIV PRIV [id number] [facility] 05:07:00 05:07:00 ches_I [id number] Medica l 2021-06-07 2021-06-07 Outpatient Cherches, PRIV PRIV [id number] 00:00:00 00:00:00 Jeff Rodrigues [id number] 2021-06-06 2021-06-06 Outpatient GC_TNC_Cher PRIV PRIV [id number] [facility] 09:08:00 09:08:00 ches_I [id number] Medica l 2021-06-04 2021-06-04 Outpatient GC_TNC_Cher PRIV PRIV [id number] [facility] 12:29:00 12:29:00 ches_I [id number] Medica l 2021-05-18 2021-05-18 Outpatient GC_TNC_Cher PRIV PRIV [id number] [facility] 12:09:00 12:09:00 ches_I [id number] Medica l 2021-05-17 2021-05-17 Outpatient GC_TNC_Cher PRIV PRIV [id number] [facility] 12:57:00 12:57:00 ches_I [id number] Medica l 2021-05-03 2021-05-03 Outpatient GC_TNC_Cher PRIV PRIV [id number] [facility] 11:13:00 11:13:00 ches_I [id number] Medica l 2020-04-18 2020-04-18 Emergency [place] [id number] [facility] 06:15:00 08:23:00 ri, [id number] Geoff R. [id number] spita .[id number] l .8 2019-12-17 2019-12-17 Outpatient WEATHERS, [facility] [id number] [place] 00:00:00 00:00:00 PEGGY [address] 2019-12-13 2019-12-13 Outpatient CHACHA [facility] [id number] [place] 00:00:00 00:00:00 PAOLA [address] 2019-07-08 2019-07-10 Outpatient SARAHY [facility] [id number] [place] 00:00:00 00:00:[address] PEGGY [address] Results This patient has no known results.
[2021-09-06] MEDS ORDERED: ASPIRIN 81 MG CHEWABLE TABLET ONE (18:43)
[2021-09-06] MEDS ORDERED: ASPIRIN EC 81 MG TAB PO ONE (18:43)
[2021-09-06 19:34] LABS: Hematocrit 41.1 % (39.6-49.0); Lymphocytes % 30.8 % (15.3-44.8); MCV 89.1 fL (80-100); MPV 7.8 fL (7.6-11.3); RBC Red Blood Cell Count 4.62 M/uL (4.33-5.43)
[2021-09-06 19:37] LABS: Protime INR 0.92
--- NOTE | 2021-09-06 19:39 | RAD REPORT ---
EXAM DESCRIPTION: RAD - Chest Single View - 09/06/2021 7:27 pm CLINICAL HISTORY: CHEST PAIN, left side COMPARISON: Portable April 2020 TECHNIQUE: AP portable chest image was obtained 09/06/2021 7:27 pm . FINDINGS: Lungs are clear of acute finding. Interstitial pattern is similar to the prior study. Hear t and vasculature are normal. No measurable pleural effusion and no pneumothorax. No acute bony abnor mality seen. No acute aortic findings suspected. IMPRESSION: No acute cardiopulmonary process.
[2021-09-06 19:52] LABS: ALT/SGPT 25 U/L (12-78); Albumin 3.7 g/dL (3.4-5.0); Alkaline Phosphatase 56 U/L (45-117); BUN Blood Urea Nitrogen 20 mg/dL (7-18); Bicarbonate 28 mmol/L (21-32); Bilirubin Total 0.4 mg/dL (0.2-1.0); Glomerular Filtration Rate 74 ml/min (=/>90); Glucose Level 106 mg/dL (74-106); NT PRO-BNP 25 pg/mL (<125); Protein, Total 7.8 g/dL (6.4-8.2); Sodium Level 137 mmol/L (136-145); Troponin High Sensitivity 3.6 pg/mL (<58.9)
[2021-09-06 19:53] LABS: AST/SGOT 16 U/L (15-37); Bilirubin Direct < 0.1 mg/dL (0-0.2); Magnesium 2.4 mg/dL (1.8-2.4); Potassium 3.9 mmol/L (3.5-5.1)
--- NOTE | 2021-09-06 20:41 | RAD REPORT ---
EXAM DESCRIPTION: CT - Chest For Pe Angio - 09/06/2021 8:33 pm CLINICAL HISTORY: chest pain COMPARISON: Thorax Wo Con dated 04/20/2020; Chest Single View dated 09/06/2021 TECHNIQUE: Dynamically enhanced 3 mm thick images of the chest were obtained during administration o f approximately 150mL Isovue 370 IV contrast. Coronal and oblique MIP reconstruction images were gene rated and reviewed. Exam utilizes a protocol to evaluate the pulmonary arterial tree. All CT scans are performed using dose optimization technique as appropriate and may include automated exposure control or mA/KV adjustment according to patient size. FINDINGS: No pulmonary emboli are identified. The aorta as imaged shows no acute or suspicious finding. No pericardial thickening or effusion. Interstitial stranding is present in each lung base. This is less pronounced than April 2020 and m ay well represent chronic scarring. No consolidation or mass. There is no pneumothorax. No pleural ef fusion or pleural thickening. No mediastinal or hilar suspicious masses. No chest wall masses or abnormal axillary lymphadenopathy. IMPRESSION: No pulmonary emboli identified. Interstitial stranding in each lower lung field believed to be chronic fibrotic change.
--- NOTE | 2021-09-06 20:58 | EDPHYS ---
Physician Documentation [facility] Name: Sammy Bennett Jr Age: 65 yrs Sex: Male : 1955 Arrival Date: 09/06/2021 Time: 17:55 Bed 18 Private MD: Hossein Bowles V ED Physician Jeffry Whaley HPI: 09/06 18:20 This 65 yrs old Male presents to ER via Ambulatory with complaints of Chest Pain. cp 18:20 The patient or guardian reports chest pain that is located primarily in the anterior cp chest wall, left. Onset: 1.5 hour(s) ago. 18:20 The pain does not radiate. cp 18:20 Duration: The patient or guardian reports multiple episodes, that are intermittent. cp 18:20 The chest pain is described as sharp. cp 18:20 Severity of pain: in the emergency department the pain has improved markedly. cp Historical: - Allergies: 19:32 unknown antibiotic- "caused red man syndrome"; sm5 - PMHx: 18:16 Arthritis; intestinal kink; iw - Immunization history:: Adult Immunizations unknown. - Social history:: Smoking status: unknown. ROS: 18:25 Constitutional: Negative for body aches, chills, fever, poor PO intake. cp 18:25 Cardiovascular: Positive for chest pain, of the left side chest. cp 18:25 Respiratory: Negative for cough, shortness of breath, wheezing. cp 18:25 Eyes: Negative for injury, pain, redness, and discharge. cp 18:25 ENT: Negative for drainage from ear(s), ear pain, sore throat, difficulty swallowing, difficulty handling secretions. 18:25 Abdomen/GI: Negative for abdominal pain, nausea, vomiting, and diarrhea. 18:25 Back: Negative for pain at rest, pain with movement, radiated pain. 18:25 Neuro: Negative for altered mental status, dizziness, headache, syncope, weakness. 18:25 All other systems are negative. Exam: 18:30 Constitutional: The patient appears in no acute distress, alert, awake, cp non-diaphoretic, non-toxic, well developed, well nourished. 18:30 Head/Face: Normocephalic, atraumatic. cp 18:30 Eyes: Periorbital structures: appear normal, Conjunctiva: normal, no exudate, no cp injection, Sclera: no appreciated abnormality, Lids and lashes: appear normal, bilaterally. 18:30 ENT: External ear(s): are unremarkable, Nose: is normal, Mouth: Lips: moist, Oral mucosa: pink and intact, moist, Posterior pharynx: Airway: no evidence of obstruction, patent. 18:30 Neck: ROM/movement: is normal, is supple, without pain, no range of motions limitations. 18:30 Chest/axilla: Inspection: normal, Palpation: is normal, no crepitus, no tenderness. cp 18:30 Cardiovascular: Rate: normal, Rhythm: regular, Edema: is not appreciated, JVD: is not appreciated. 18:30 Respiratory: the patient does not display signs of respiratory distress, Respirations: normal, no use of accessory muscles, no retractions, labored breathing, is not present, Breath sounds: are clear throughout, no decreased breath sounds, no stridor, no wheezing. 18:30 Abdomen/GI: Inspection: abdomen appears normal, Palpation: abdomen is soft and non-tender, in all quadrants. 18:30 Back: pain, is absent, ROM is normal. 18:30 Neuro: Orientation: to person, place \\T\\ time. Mentation: is normal, Cerebellar function: is grossly normal, Motor: moves all fours, strength is normal, Sensation: is normal. Vital Signs: 18:21 BP 144 / 75; Pulse 69; Resp 16; Pulse Ox 98% on R/A; iw 19:32 BP 127 / 68; Pulse 69; Resp 21; Pulse Ox 97% on R/A; sm5 MDM: 18:12 Patient medically screened. cp 19:00 Differential diagnosis: abnormal EKG, acute myocardial infarction, pancreatitis, cp pleurisy, pneumonia, pneumothorax, pulmonary embolus, stable angina, thoracic aortic disection, unstable angina. 20:50 Data reviewed: vital signs, nurses notes, lab test result(s), EKG, radiologic studies, plain films. 20:50 The patient was not given aspirin in the Emergency Department. Administered by EMS. cp 21:00 Physician consultation: Hossein Bowles MD was contacted at 20:55, regarding admission, to the telemetry unit. patient's condition, would like consultation with Dr. Pryor. 09/06 18:18 Order name: Basic Metabolic Panel; Complete Time: 20:03 cp 09/06 18:18 Order name: CBC with Diff; Complete Time: 20:03 cp 09/06 18:18 Order name: D-Dimer; Complete Time: 20:45 cp 09/06 18:18 Order name: LFT's; Complete Time: 20:03 cp 09/06 18:18 Order name: Magnesium; Complete Time: 20:03 cp 09/06 18:18 Order name: NT PRO-BNP; Complete Time: 20:03 cp 09/06 18:18 Order name: PT-INR; Complete Time: 20:45 cp 09/06 18:18 Order name: Troponin HS; Complete Time: 20:03 cp 09/06 18:50 Order name: B12; Complete Time: 20:45 cp 09/06 21:03 Order name: COVID-19 SARS RT PCR (Document "Date of Onset" if Symptomatic) 5 09/06 21:48 Order name: Basic Metabolic Panel EDMS 09/06 21:48 Order name: Basic Metabolic Panel EDMS 09/06 21:48 Order name: CBC with Automated Diff EDMS 09/06 21:48 Order name: CBC with Automated Diff EDMS 09/06 18:18 Order name: XRAY Chest (1 view); Complete Time: 19:50 cp 09/06 19:50 Interpretation: Report review. cp 09/06 18:18 Order name: EKG; Complete Time: 18:19 cp 09/06 18:18 Order name: Cardiac monitoring; Complete Time: 18:36 cp 09/06 18:18 Order name: EKG - Nurse/Tech; Complete Time: 18:36 cp 09/06 18:18 Order name: IV Saline Lock; Complete Time: 18:48 cp 09/06 20:03 Order name: CT Chest For PE Angio; Complete Time: 20:45 cp 09/06 21:48 Order name: Regular EDMS 09/06 21:48 Order name: EKG Electrocardiogram EDMS 09/06 21:48 Order name: EKG Electrocardiogram EDMS 09/06 21:48 Order name: EKG Electrocardiogram EDMS 09/06 21:48 Order name: EKG Electrocardiogram EDMS 09/06 21:48 Order name: Troponin High Sensitivity EDMS 09/06 21:48 Order name: Troponin High Sensitivity EDMS 09/06 21:48 Order name: Troponin High Sensitivity EDMS 09/06 21:48 Order name: Troponin High Sensitivity [facility] 09/06 18:18 Order name: Labs collected and sent; Complete Time: 18:48 cp 09/06 18:18 Order name: O2 Sat Monitoring; Complete Time: 18:36 cp Administered Medications: 18:45 Drug: Aspirin Chewable Tablet 324 mg Route: PO; jg9 18:49 Follow up: Response: No adverse reaction jg9 Disposition: 09/07 14:38 Co-signature as Attending Physician, Jeffry Whaley MD. rn Disposition Summary: 09/06/21 20:57 Hospitalization Ordered Hospitalization Status: Observation cp Provider: Hossein Bowles cp Condition: Stable cp Problem: new cp Symptoms: have improved cp Bed/Room Type: Standard cp Location: [facility] ER HOLD(09/06/21 22:33) Room Assignment: ERHOLD-(09/06/21 22:33) cg Diagnosis - Chest pain, unspecified cp Forms: - Medication Reconciliation Form cp - SBAR form cp Signatures: Dispatcher [employer] Maryam Calderon RN Jeffry Shipley MD MD rn Page, Corey, PA PA cp Jamila Bonilla RN RN Micaela Price RN RN sm5 Bessy Rivera RN RN jg9 Corrections: (The following items were deleted from the chart) 09/06 22:33 20:57 Telemetry/MedSurg (observation) cp cg 22:33 20:57 cp cg
--- NOTE | 2021-09-06 20:58 | ER ---
Nurse's Notes [facility] Name: Sammy Bennett Jr Age: 65 yrs Sex: Male : 1955 Arrival Date: 09/06/2021 Time: 17:55 Bed 18 Private MD: Hossein Bowles V Diagnosis: Chest pain, unspecified Presentation: 09/06 18:15 Chief complaint: Patient states: left chest pain started 90 minutes ago, intermittent iw sharp pain , has happened about a dozen times in past hour. 18:16 Coronavirus screen: At this time, the client does not indicate any symptoms associated iw with coronavirus-19. Ebola Screen: Patient negative for fever greater than or equal to 101.5 degrees Fahrenheit, and additional compatible Ebola Virus Disease symptoms Patient denies exposure to infectious person. Patient denies travel to an Ebola-affected area in the 21 days before illness onset. No symptoms or risks identified at this time. Initial Sepsis Screen: Does the patient meet any 2 criteria? No. Patient's initial sepsis screen is negative. Does the patient have a suspected source of infection? No. Patient's initial sepsis screen is negative. Risk Assessment: Do you want to hurt yourself or someone else? Patient reports no desire to harm self or others. Onset of symptoms was September 06, 2021. 18:16 Method Of Arrival: Ambulatory iw 18:16 Acuity: MILVIA 3 iw Historical: - Allergies: 19:32 unknown antibiotic- "caused red man syndrome"; sm5 - PMHx: 18:16 Arthritis; intestinal kink; iw - Immunization history:: Adult Immunizations unknown. - Social history:: Smoking status: unknown. Screenin:28 Abuse screen: Denies threats or abuse. Denies injuries from another. Nutritional sm5 screening: No deficits noted. Tuberculosis screening: No symptoms or risk factors identified. Fall Risk None identified. Assessment: 19:30 General: Appears in no apparent distress. Behavior is cooperative. Pain: Complains of sm5 pain in chest Pain does not radiate. Pain began 2 hours ago. Neuro: No deficits noted. Level of Consciousness is awake, alert, obeys commands, Oriented to person, place, time, situation. Cardiovascular: Reports chest pain, Capillary refill < 3 seconds Patient's skin is warm and dry. Rhythm is sinus rhythm. Respiratory: No deficits noted. Airway is patent Trachea midline Respiratory effort is even, unlabored. Vital Signs: 18:21 BP 144 / 75; Pulse 69; Resp 16; Pulse Ox 98% on R/A; iw 19:32 BP 127 / 68; Pulse 69; Resp 21; Pulse Ox 97% on R/A; sm5 ED Course: 17:55 Patient arrived in ED. rg4 17:56 Hossein Bowles MD is Private Physician. rg4 18:00 Luke Mercado PA is PHCP. cp 18:00 Jeffry Whaley MD is Attending Physician. cp 18:16 Triage completed. iw 18:16 Arm band placed on. iw 18:24 Bessy Rivera, SURI is Primary Nurse. jg9 18:54 Inserted saline lock: 20 gauge in right antecubital area, using aseptic technique. tp1 Blood collected. 19:29 XRAY Chest (1 view) In Process Unspecified. EDMS 19:30 Patient has correct armband on for positive identification. Bed in low position. Call sm5 light in reach. Side rails up X2. Client placed on continuous cardiac and pulse oximetry monitoring. NIBP monitoring applied. 19:31 No provider procedures requiring assistance completed. Patient maintains SpO2 sm5 saturation greater than 95% on room air. 20:04 Notified Nurse Practitioner and/or Physician Animation Director of a critical lab result(s), claus Ddimer of 942. Luke MOCK notified. 20:34 CT Chest For PE Angio In Process Unspecified. EDMS 20:57 Hossein Bowles MD is Hospitalizing Provider. cp 09/07 07:43 Patient admitted, IV remains in place. jg9 Administered Medications: 09/06 18:45 Drug: Aspirin Chewable Tablet 324 mg Route: PO; jg9 18:49 Follow up: Response: No adverse reaction jg9 Medication: 09/07 07:43 VIS not applicable for this client. jg9 Outcome: 09/06 20:57 Decision to Hospitalize by Provider. cp 09/07 07:43 Admitted to ER Hold. Please see [facility] for further documentation. jg9 Condition: stable 10:21 Patient left the ED. kj1 Signatures: Dispatcher [employer] EDMS Ashely Dior RN RN bb Williams, Irene, RN RN iw Page, Corey, PA PA cp Garcia, Rubi rg4 Greta Alvarez kj1 Lela Higginbotham tp1 Micaela Price, RN RN sm5 Bessy Rivera, RN RN jg9
[2021-09-06] MEDS ORDERED: ONDANSETRON 4 MG/2 ML VIAL IV PRN (21:43)
[2021-09-06] MEDS ORDERED: ACETAMINOPHEN 500 MG TAB PO PRN (21:43)
[2021-09-06] MEDS ORDERED: MORPHINE 2 MG/ML SYR IV PRN (21:43)
[2021-09-07 01:07] VITALS: BMI 26.7
[2021-09-07 03:08] LABS: Hematocrit 38.1 % (39.6-49.0); Lymphocytes % 39.1 % (15.3-44.8); MCV 89.5 fL (80-100); MPV 7.6 fL (7.6-11.3); RBC Red Blood Cell Count 4.26 M/uL (4.33-5.43)
[2021-09-07 03:15] LABS: Potassium 3.4 mmol/L (3.5-5.1)
[2021-09-07 08:15] VITALS: O2SAT 99
[2021-09-07 08:22] VITALS: BP 121/76
--- NOTE | 2021-09-07 08:53 | EKG ---
Test Date: 2021-09-06 Test Time: 18:33:28 Amusement Park Entertainer: KELLEY MEASUREMENT RESULTS: Intervals: Rate: 72 MA: 182 QRSD: 92 QT: 404 QTc: 442 Paxton: P: 57 MA: 182 QRS: 36 T: 43 INTERPRETIVE STATEMENTS: Normal sinus rhythm Normal ECG Compared to ECG 06/11/2018 17:24:37 No significant changes Electronically Signed On 09-07-21 08:52:15 CDT by Trev Pryor
[2021-09-07] MEDS ORDERED: POTASSIUM CL SA 10 MEQ TAB PO SCH (09:00)
[2021-09-07] MEDS ORDERED: ASPIRIN EC 81 MG TAB PO SCH (09:00)
[2021-09-07] MEDS ORDERED: FAMOTIDINE 20 MG TAB PO SCH (09:00)
[2021-09-07] MEDS ORDERED: ASPIRIN EC 81 MG TAB PO ONE (09:20)
[2021-09-07] MEDS ORDERED: POTASSIUM CL SA 10 MEQ TAB PO ONE (09:20)
[2021-09-07] MEDS ORDERED: FAMOTIDINE 20 MG/2 ML VIAL IV ONE (09:21)
[2021-09-07] MEDS ORDERED: FAMOTIDINE 20 MG TAB ONE (10:02)
--- NOTE | 2021-09-07 10:41 | CON ---
Date of Consultation: 09/07/2021 Reason For Consultation: Chest pain. History Of Present Illness: Mr. Bennett is a 65-year-old white male, who is very healthy a t one point and he took Xarelto and ivermectin and prednisone for that, that was about 2 years ago. Comes in with sharp, stabbing chest pain over the left anterior chest that would last seconds at a ti me without any nausea, vomiting, diaphoresis, PND, orthopnea, pedal edema, palpitation, or syncope. His workup showed negative COVID, negative CTA, negative chest x-ray. He has an elevated D-dimer of 942. He is asymptomatic now. Past Medical History: Negative. Allergies: NONE. Review of Systems: Negative. Social History: Negative. Family History: Noncontributory. Physical Examination: Vital Signs: Stable, afebrile. HEENT: Negative. Neck: Supple with no bruit. Chest: Clear. Cardiac: Revealed a regular rhythm and rate. No murmurs, gallops, or rubs. Abdomen: Benign. Extremities: Revealed no clubbing, cyanosis, or edema. Diagnostic Data: As stated earlier. Impression And Plan: Atypical chest pain, most likely musculoskeletal or pleuritic, possibly neuropa thy related. Apparently, he has dealt with elevated B6 level, low calcium, vitamin D issues and Dr. Bowles is working on those. I do not think this is cardiac in nature. His CTA is negative. His EKG is negative. Chest x-ray is negative. Troponin is negative. I am comfortable with him going home w ithout any significant cardiac workup. He has had normal echo and stress test in the office in the p ast. He can go home today. Case was discussed with Dr. Bowles. He will see me in the office in the near future. ANGELA/SHEAL Voice ID: [id number] Report ID: [id number]
== END 2021-09-07 10:15 | disposition home or self-care (01) ==
LOC: ER 17:54 → ERHOLD 09-07 00:58
PROVIDERS: ADMIT Internal Medicine; ATTEND Internal Medicine
DX: R07.89 Other chest pain (principal); M19.90 Unspecified osteoarthritis, unspecified site; Z88.1 Allergy status to other antibiotic agents; Z20.822 Contact with and (suspected) exposure to COVID-19
CPT/HCPCS: 36415; 71045; 71275; 80048; 80076; 82607; 83735; 83880; 84484; 85025; 85379; 85610; 93005; 99285; G0378; J3490; Q9967; U0003

== ENCOUNTER 2021-12-13 04:28 | Emergency (ER) | payer BC ==
--- OUTSIDE RECORDS SUMMARY | 2021-12-13 04:30 | XMS REPORT | Continuity of Care Document ---
:1955 Author Organization [facility] t Address [address] [place] [address] [place] [id number] Care Team Providers Name Role Phone Yuniel LUGO, Paola Primary Care Physician [email or web address] Attending Clinician Unavailable Jeff Rodrigues Attending Clinician [phone] Rema LUGO, Geoff Cordova Attending Clinician [phone] Aries Flores Attending Clinician Unavailable PEGGY WEATHERS Attending Clinician Unavailable PAOLA BURNHAM Attending Clinician Unavailable [email or web address] Admitting Clinician Unavailable Payers Payer Name Policy Type Policy Number Effective Date Expiration Date Miesha [place] [id number] 2015 00:00:00 [place] Problems Condition Condition Condition Status Onset Resolution Last Treating Co mments Source Name Details Category Date Date Treatment Clinician Date Dizziness Dizziness Disease Active Met [facility]07 [facility] 00[facility]00: [facility]osp[facility] 00 l Allergies, Adverse Reactions, Alerts This patient has no known allergies or adverse reactions. Family History Family Member Diagnosis Comments Start Date Stop Date Source Natural father Diabetes [facility] Maternal grandfather Coronary artery [facility] disease [facility] Natural mother Breast cancer [facility] Social History Social Habit Start Date Stop Date Quantity Comments Source Alcohol intake 2020-04-18 2020-04-18 Current drinker [facility] 00:00:00 00:00:00 of [facility] (finding) Tobacco use and 2015-09-08 2015-09-08 Smokeless tobacco [facility] exposure 00:00:00 00:00:00 non-user Hospital Sex Assigned At [birth year] [facility] 00:00:00 00:00:00 Hospital Smoking Status Start Date Stop Date Source Never smoked tobacco [facility] Medications Ordered Filled Start Stop Current [...] Date Status Commen ts Source Name Name BASILIAX TABITHA 2019-12-[address] [facility]:00[facility]00 Hospital FLUCELVAX QUAD 2019-12-[address] 00:00:00 Hospital FLUCELVAX QUAD 2019-12-[address] 00:00:00 Hospital Vital Signs Vital Name Observation Time Observation Value Comments Source Systolic blood 2020-04-18 14:21:00 123 mm[Hg] [facility] Hospital pressure Diastolic blood 2020-04-18 14:21:00 75 mm[Hg] [facility] pressure Heart rate 2020-04-18 14:21:00 70 /min [facility] Oxygen saturation in 2020-04-18 14:21:00 96 /min [facility] Arterial blood by Pulse oximetry Body temperature 2020-04-18 12:10:31 37 Mikaela [facility] Respiratory rate 2020-04-18 12:10:31 18 /min [facility] Procedures Procedure Date / Time Performing Clinician Source Performed HC COMPLETE BLD COUNT 2020-04-18 12:40:00 [facility] W/AUTO DIFF Geoff Cordova COMPREHENSIVE METABOLIC 2020-04-18 12:40:00 [facility] PANEL Geoff Cordova ESTIMATED GFR 2020-04-18 12:40:00 [facility] Geoff Cordova Plan of Care Planned Activity Planned Date Details Comments Source Future Scheduled 2021-11-10 HEPATITIS B VACCINES Met [facility] Hospital Test 23:07:33 (1 of 3 - 3-dose series) [code = HEPATITIS B VACCINES (1 of 3 - 3-dose series)] Future Scheduled 2021-11-10 COVID-19 VACCINE (#1) Me [facility] Test 23:07:33 [code = COVID-19 VACCINE (#1)] Future Scheduled 2021-11-10 Hepatitis C screening [facility] Test 23:07:33 (procedure) [code = 842193871] Future Scheduled 2021-11-10 SHINGLES VACCINES (1 Met [facility] Test 23:07:33 of 2) [code = SHINGLES VACCINES (1 of 2)] Future Scheduled 2021-11-10 INFLUENZA VACCINE Method [facility] Hospital Test 23:07:33 [code = INFLUENZA VACCINE] Future Scheduled 2021-11-10 COLONOSCOPY SCREENING [facility] Test 23:07:33 [code = COLONOSCOPY SCREENING] Future Scheduled 2021-03-29 COVID-19 VACCINE (1) Met [facility] Test 12:30:42 [code = COVID-19 VACCINE (1)] Future Scheduled 2021-03-29 Hepatitis C screening [facility] Test 12:30:42 (procedure) [code = [id number]] Future Scheduled 2021-03-29 SHINGLES VACCINES Method [facility] Hospital Test 12:30:42 (#1) [code = SHINGLES VACCINES (#1)] Future Scheduled 2021-03-29 INFLUENZA VACCINE Method is Hospital Test 12:30:42 [code = INFLUENZA VACCINE] Future Scheduled 2021-03-29 COLONOSCOPY SCREENING [facility] Test 12:30:42 [code = COLONOSCOPY SCREENING] Future Scheduled 2021-03-29 COVID-19 VACCINE (1) Met [facility] Test 12:30:42 [code = COVID-19 VACCINE (1)] Future Scheduled 2021-03-29 Hepatitis C screening [facility] Test 12:30:42 (procedure) [code = [id number]] Future Scheduled 2021-03-29 SHINGLES VACCINES Method is Hospital Test 12:30:42 (#1) [code = SHINGLES VACCINES (#1)] Future Scheduled 2021-03-29 INFLUENZA VACCINE Method is Hospital Test 12:30:42 [code = INFLUENZA VACCINE] Future Scheduled 2021-03-29 COLONOSCOPY SCREENING [facility] Test 12:30:42 [code = COLONOSCOPY SCREENING] Encounters Start End Encounter Admission Attending Care Care Encounter Source Date/Time Date/Time Type Type Clinicians Facility Department ID 2021-06-08 2021-06-08 Outpatient GC_TNC_Cher PRIV PRIV [id number] [facility] 09:54:00 09:54:00 ches_I [id number] Medica l 2021-06-07 2021-06-07 Outpatient GC_TNC_Cher PRIV PRIV [id number] [facility] 05:07:00 05:07:00 ches_I [id number] Medica l 2021-06-07 2021-06-07 Outpatient Roseches, PRIV PRIV [id number] 00:00:00 00:00:00 Jeff Rodrigues [id number] 2021-06-06 2021-06-06 Outpatient GC_TNC_Cher PRIV PRIV [id number] [facility] 09:08:00 09:08:00 ches_I [id number] Medica l 2021-06-04 2021-06-04 Outpatient GC_TNC_Cher PRIV PRIV [id number] [facility] 12:29:00 12:29:00 ches_I [id number] Medica l 2021-05-18 2021-05-18 Outpatient GC_TNC_Cher PRIV PRIV [id number] [facility] 12:09:00 12:09:00 ches_I [id number] Medica l 2021-05-17 2021-05-17 Outpatient GC_TNC_Cher PRIV PRIV [id number] [facility] 12:57:00 12:57:00 ches_I [id number] Medica l 2021-05-03 2021-05-03 Outpatient GC_TNC_Cher PRIV PRIV [id number] [facility] 11:13:00 11:13:00 ches_I [id number] Medica l 2020-04-18 2020-04-18 Emergency [place] [id number] [facility] 06:15:00 08:23:00 al, [id number] Geoff Cardenas430.2.7 Ho spita .[id number] l .8 2020-04-17 2020-03-26 Inpatient Sandra [facility] [id number] [facility] 07:00:00 14:09:54 Aries 09 [facility] 2019-12-17 2019-12-17 [facility] [id number] [address] [place] 00:00:00 00:00:00 PEGGY [address] 2019-12-13 2019-12-13 Outpatient [facility]EL [facility] [id number] [address] [place] 00:00:00 00:00:00 PAOLA [address] 2019-07-08 2019-07-10 [facility] [id number] [address] [place] 00:00:00 00:00:00 PEGGY [address] Results This patient has no known results.
[2021-12-13 05:28] LABS: Absolute Lymphocytes (CBC) 1.8 K/uL (0.7-4.9); Hematocrit 42.4 % (39.6-49.0); Lymphocytes % 32.7 % (15.3-44.8); MCV 90.2 fL (80-100); MPV 7.4 fL (7.6-11.3)
[2021-12-13] MEDS ORDERED: NA CHLORIDE 0.9% 500 ML ONE (05:29)
[2021-12-13 06:16] LABS: Potassium 4.1 mmol/L (3.5-5.1); Troponin High Sensitivity 4.3 (<58.9)
[2021-12-13 06:17] LABS: T3 Free 4.28 pg/mL (2.18-3.98)
[2021-12-13 06:19] LABS: Thyroid Stimulating Hormone 3.15 uIU/mL (0.360-3.740)
--- NOTE | 2021-12-13 06:41 | EDPHYS ---
Physician Documentation [facility] Name: Sammy Bennett Jr Age: 66 yrs Sex: Male : 1955 Arrival Date: 12/13/2021 Time: 04:30 Bed 16 Private MD: ED Physician Kranthi Henderson HPI: 12/13 05:35 This 66 yrs old Male presents to ER via Ambulatory with complaints of Doesn't Feel kdr Right. 05:35 Patient states that over the last 2 years he has had intermittent episodes every month kdr or 2 where he just feels off. He has difficulty describing it. He has been evaluated for it at least 1 time. On the last evaluation, he was told that should this sensation occur again, he should seek evaluation in the nearest emergency department to get some laboratory work done. The current episode seems to be more persistent and at least as significant as prior experiences.. Onset: The symptoms/episode began/occurred suddenly, 12 hour(s) ago. Severity of symptoms: At their worst the symptoms were mild in the emergency department the symptoms are unchanged Pain is currently a 0 / 10. The patient has not experienced similar symptoms in the past. The patient has not recently seen a physician. Historical: - Allergies: 04:37 Vancomycin; tw5 - PMHx: 04:37 Arthritis; intestinal kink; tw5 - Immunization history:: Flu vaccine is up to date. - Social history:: Smoking status: Patient denies any tobacco usage or history of. ROS: 05:36 Constitutional: Negative for fever, chills, and weight loss, Eyes: Negative for injury, kdr pain, redness, and discharge, Neck: Negative for injury, pain, and swelling, Cardiovascular: Negative for chest pain, palpitations, and edema, Respiratory: Negative for shortness of breath, cough, wheezing, and pleuritic chest pain, Abdomen/GI: Negative for abdominal pain, nausea, vomiting, diarrhea, and constipation, Back: Negative for injury and pain, : Negative for injury, bleeding, discharge, and swelling, MS/Extremity: Negative for injury and deformity, Skin: Negative for injury, rash, and discoloration, Psych: Negative for depression, anxiety, suicide ideation, homicidal ideation, and hallucinations, Allergy/Immunology: Negative for hives, rash, and allergies, Endocrine: Negative for neck swelling, polydipsia, polyuria, polyphagia, and marked weight changes, Hematologic/Lymphatic: Negative for swollen nodes, abnormal bleeding, and unusual bruising. Exam: 05:37 Constitutional: This is a well developed, well nourished patient who is awake, alert, kdr and in no acute distress. Head/Face: Normocephalic, atraumatic. Eyes: Pupils equal round and reactive to light, extra-ocular motions intact. Lids and lashes normal. Conjunctiva and sclera are non-icteric and not injected. Cornea within normal limits. Periorbital areas with no swelling, redness, or edema. ENT: Nares patent. No nasal discharge, no septal abnormalities noted. Tympanic membranes are normal and external auditory canals are clear. Oropharynx with no redness, swelling, or masses, exudates, or evidence of obstruction, uvula midline. Mucous membranes moist. Neck: Trachea midline, no thyromegaly or masses palpated, and no cervical lymphadenopathy. Supple, full range of motion without nuchal rigidity, or vertebral point tenderness. No Meningismus. Chest/axilla: Normal chest wall appearance and motion. Nontender with no deformity. No lesions are appreciated. Cardiovascular: Regular rate and rhythm with a normal S1 and S2. No gallops, murmurs, or rubs. Normal PMI, no JVD. No pulse deficits. Respiratory: Lungs have equal breath sounds bilaterally, clear to auscultation and percussion. No rales, rhonchi or wheezes noted. No increased work of breathing, no retractions or nasal flaring. Abdomen/GI: Soft, non-tender, with normal bowel sounds. No distension or tympany. No guarding or rebound. No evidence of tenderness throughout. Back: No spinal tenderness. No costovertebral tenderness. Full range of motion. Skin: Warm, dry with normal turgor. Normal color with no rashes, no lesions, and no evidence of cellulitis. MS/ Extremity: Pulses equal, no cyanosis. Neurovascular intact. Full, normal range of motion. Neuro: Awake and alert, GCS 15, oriented to person, place, time, and situation. Cranial nerves II-XII grossly intact. Motor strength 5/5 in all extremities. Sensory grossly intact. Cerebellar exam normal. Normal gait. Vital Signs: 04:34 BP 123 / 82; Pulse 69; Resp 14; Temp 98.7; Pulse Ox 99% on R/A; Weight 111.13 kg; tw5 Height 6 ft. 4 in. (193.04 cm); Pain 0/10; 06:22 BP 111 / 61; Pulse 72; Resp 19; Pulse Ox 100% ; ke1 04:34 Body Mass Index 29.82 (111.13 kg, 193.04 cm) tw5 MDM: 05:37 Data reviewed: vital signs, nurses notes, lab test result(s), radiologic studies. kdr Counseling: I had a detailed discussion with the patient and/or guardian regarding: the historical points, exam findings, and any diagnostic results supporting the discharge/admit diagnosis, lab results, radiology results, the need for outpatient follow up. 06:40 Patient medically screened. kdr 12/13 04:45 Order name: Basic Metabolic Panel kdr 12/13 04:45 Order name: CBC with Diff kdr 12/13 04:45 Order name: D-Dimer kdr 12/13 04:45 Order name: NT PRO-BNP kdr 12/13 04:45 Order name: Troponin HS kdr 12/13 05:24 Order name: TSH kdr 12/13 05:24 Order name: T4 Free kdr 12/13 05:24 Order name: T3 Free kdr 12/13 05:37 Order name: CBC with Automated Diff; Complete Time: 06:34 EDMS 12/13 05:43 Order name: D-Dimer; Complete Time: 06:34 EDMS 12/13 06:16 Order name: Basic Metabolic Panel; Complete Time: 06:34 EDMS 12/13 06:19 Order name: Troponin High Sensitivity; Complete Time: 06:34 EDMS 12/13 06:19 Order name: NT PRO-BNP; Complete Time: 06:34 EDMS 12/13 06:19 Order name: T3 Free; Complete Time: 06:34 EDMS 12/13 04:45 Order name: XRAY Chest (1 view) kdr 12/13 04:45 Order name: EKG; Complete Time: 04:46 kdr 12/13 04:45 Order name: Cardiac monitoring; Complete Time: 05:14 kdr 12/13 04:45 Order name: EKG - Nurse/Tech; Complete Time: 05:14 kdr 12/13 04:45 Order name: IV Saline Lock; Complete Time: 05:01 kdr 12/13 04:45 Order name: Labs collected and sent; Complete Time: 05:01 kdr 12/13 04:45 Order name: O2 Per Protocol; Complete Time: 05:14 kdr 12/13 04:45 Order name: O2 Sat Monitoring; Complete Time: 05:14 kdr 12/13 06:19 Order name: T4 Free; Complete Time: 06:34 EDMS 12/13 06:19 Order name: Thyroid Stimulating Hormone; Complete Time: 06:34 EDMS Administered Medications: 05:27 Not Given (Duplicate Order): NS 0.9% 500 ml IV at bolus once ke1 05:37 Drug: NS 0.9% 500 ml Route: IV; Rate: bolus; Site: left antecubital; ke1 Disposition Summary: 12/13/21 06:40 Discharge Ordered Location: Home kdr Problem: an acute exacerbation kdr Symptoms: have improved kdr Condition: Stable kdr Diagnosis - Other malaise and fatigue kdr - Weakness kdr Followup: kdr - With: Private Physician - When: 2 - 3 days - Reason: If symptoms return, Further diagnostic work-up, Recheck today's complaints, Continuance of care, Re-evaluation by your physician Discharge Instructions: - Discharge Summary Sheet kdr - Fatigue kdr - Weakness, [id number] kdr Forms: - Medication Reconciliation Form kdr - Thank You Letter kdr Signatures: Dispatcher [employer] Kranthi Sanders MD MD kdr Wood, Tiffany tw5 Darío Landrum RN RN ke1 Corrections: (The following items were deleted from the chart) 04:38 04:37 Allergies: unknown antibiotic- "caused red man syndrome"; tw5 tw5
--- NOTE | 2021-12-13 06:41 | ER ---
Nurse's Notes [facility] Name: Sammy Bennett Jr Age: 66 yrs Sex: Male : 1955 Arrival Date: 12/13/2021 Time: 04:30 Bed 16 Private MD: Diagnosis: Other malaise and fatigue;Weakness Presentation: 12/13 04:34 Chief complaint: Patient states: "I have not been feeling well. I have been feeling bad tw5 all night. Each time I feel like this they cannot figure out. Dr. Bowles said next time I feel like this I need to come in right away. I am just frustrated and it is hard to explain.". Coronavirus screen: Vaccine status: Patient reports receiving the 2nd dose of the covid vaccine. Moderna. Ebola Screen: Patient negative for fever greater than or equal to 101.5 degrees Fahrenheit, and additional compatible Ebola Virus Disease symptoms Patient denies exposure to infectious person. Patient denies travel to an Ebola-affected area in the 21 days before illness onset. Initial Sepsis Screen: Does the patient meet any 2 criteria? No. Patient's initial sepsis screen is negative. Does the patient have a suspected source of infection? No. Patient's initial sepsis screen is negative. Risk Assessment: Do you want to hurt yourself or someone else? Patient reports no desire to harm self or others. Onset of symptoms was December 12, 2021. 04:34 Method Of Arrival: Ambulatory tw5 04:34 Acuity: MILVIA 3 tw5 Triage Assessment: 04:37 General: Appears in no apparent distress. Behavior is calm, cooperative, appropriate tw5 for age. Pain: Denies pain. Historical: - Allergies: 04:37 Vancomycin; tw5 - PMHx: 04:37 Arthritis; intestinal kink; tw5 - Immunization history:: Flu vaccine is up to date. - Social history:: Smoking status: Patient denies any tobacco usage or history of. Screenin:38 Abuse screen: Denies threats or abuse. Denies injuries from another. Nutritional tw5 screening: No deficits noted. Tuberculosis screening: No symptoms or risk factors identified. Fall Risk None identified. Assessment: 05:00 General: Appears uncomfortable, Behavior is appropriate for age. Neuro: Level of ke1 Consciousness is awake, alert, Oriented to person, place, time, situation. Cardiovascular: Denies chest pain, Heart tones S1 S2. Respiratory: Airway is patent Trachea midline Respiratory effort is even, unlabored, Respiratory pattern is regular, symmetrical. GI: Abdomen is flat, non-distended. Derm: No deficits noted. Musculoskeletal: Range of motion: intact in all extremities. 05:37 Reassessment: No changes from previously documented assessment. ke1 06:22 Reassessment: No changes from previously documented assessment. Patient denies pain at ke1 this time. Vital Signs: 04:34 BP 123 / 82; Pulse 69; Resp 14; Temp 98.7; Pulse Ox 99% on R/A; Weight 111.13 kg; tw5 Height 6 ft. 4 in. (193.04 cm); Pain 0/10; 06:22 BP 111 / 61; Pulse 72; Resp 19; Pulse Ox 100% ; ke1 04:34 Body Mass Index 29.82 (111.13 kg, 193.04 cm) tw5 ED Course: 04:30 Patient arrived in ED. bp1 04:37 Triage completed. tw5 04:37 Arm band placed on right wrist. tw5 04:38 Patient has correct armband on for positive identification. tw5 04:39 Darío Landrum, SURI is Primary Nurse. ke1 04:44 Kranthi Henderson MD is Attending Physician. kdr 04:59 Inserted saline lock: 20 gauge in left antecubital area, using aseptic technique. ke1 06:54 No provider procedures requiring assistance completed. IV discontinued. ke1 Administered Medications: 05:27 Not Given (Duplicate Order): NS 0.9% 500 ml IV at bolus once ke1 05:37 Drug: NS 0.9% 500 ml Route: IV; Rate: bolus; Site: left antecubital; ke1 Medication: 06:55 VIS not applicable for this client. ke1 Outcome: 06:40 Discharge ordered by . kdr 06:55 Discharged to home ambulatory. ke1 06:55 Condition: good 06:55 Discharge instructions given to patient. 06:55 Patient left the ED. ke1 Signatures: Kranthi Henderson MD MD kdr Galina Paulson bp1 Lela Mao tw5 Darío Landrum, SURI RN ke1 Corrections: (The following items were deleted from the chart) 04:38 04:37 Allergies: unknown antibiotic- "caused red man syndrome"; tw5 tw5
[2021-12-13 07:07] VITALS: TEMP 98.7
[2021-12-13 07:13] VITALS: BP 111/61; O2SAT 100
--- NOTE | 2021-12-13 13:21 | RAD REPORT ---
EXAM DESCRIPTION: XR Chest, 1 View CLINICAL HISTORY: The patient is 66 years old and is Male; CHEST PAIN TECHNIQUE: Single view of the chest. COMPARISON: No relevant prior studies available. FINDINGS: Lungs: Unremarkable. No consolidation. Pleural space: Unremarkable. No pneumothorax. Heart: Unremarkable. No cardiomegaly. Mediastinum: Unremarkable. Bones/joints: No acute fracture visualized. Soft tissues: Metal foreign object overlies the right glenoid, internal versus external. Upper abdomen: No free air in the visualized upper abdomen. IMPRESSION: 1. Metal foreign object overlies the right glenoid, internal versus external. 2. No acute cardiopulmonary process identified. Electronically signed by: Lindsey Buitrago MD 12/13/2021 5:26 AM CDT Due to temporary technical issues with the PACS/Fluency reporting system, reports are being signed by the in house radiologists without review as a courtesy to insure prompt reporting. The interpreting radiologist is fully responsible for the content of the report.
--- NOTE | 2021-12-13 14:12 | EKG ---
Test Date: 2021-12-13 Test Time: 05:00:37 Bag Loader Machine Operator: DAVID MEASUREMENT RESULTS: Intervals: Rate: 69 OR: 184 QRSD: 92 QT: 402 QTc: 430 Cavalier: P: 55 OR: 184 QRS: 50 T: 53 INTERPRETIVE STATEMENTS: Normal sinus rhythm Normal ECG Compared to ECG 09/06/2021 18:33:28 No significant changes Electronically Signed On 12-13-21 14:11:35 CDT by Benjy French
== END 2021-12-13 06:55 | disposition home or self-care (01) ==
LOC: ER 04:28
DX: R53.81 Other malaise (principal); R53.83 Other fatigue; R53.1 Weakness; Z88.3 Allergy status to other anti-infective agents
CPT/HCPCS: 93005; 85025; 80048; 36415; 85379; 84443; 84484; 84481; 84439; 83880; 71045; 99283; J7040